=== PATIENT | male | born 1950 | race American Indian/Alaskan Native ===

== ENCOUNTER 2019-05-03 01:48 | Inpatient (IN) | payer MEDICARE, OTHER ==
--- NOTE | 2019-05-03 02:30 | Emergency Department Report ---
ED Neuro Deficit HPI - General Chief Complaint: Neuro Symptoms/Deficit Stated Complaint: NUMBNESS ON LEFT SIDE Time Seen by Provider: 05/03/19 02:03 Source: patient Mode of arrival: Ambulatory Limitations: No Limitations - History of Present Illness Initial Comments: [facility] TeleNeurology Consult Services Impression: Stroke Not a tpa candidate due to: Pt on Xarelto Symptoms not consistent with LVO therefore no DEEPA Comments: Last Known Well: 18:30 [employer] contacted: 2:04 [facility] at bedside: 2:11 NIHSS assessment time: 2:14 Recommendations: Admit for stroke workup. ASA/Statin if no contraindications. IV Fluids Inpatient neurology consultation Inpatient stroke evaluation as per Neurology/ Internal Medicine Discussed with ED MD Please call with questions --------- CC: left sided weakness. History of Present Illness: Patient is a 68 YO M with h/o DM and afib on Xarelto presented with left sided weakness. He went to bed at 18:30 and got up dragging his left leg. He denies any speech or language deficits but seems to have a left facial droop. Diagnostic: CT Head: No acute Intracranial findings. Exam: NIH Stroke Scale/Score (NIHSS) RESULT SUMMARY: 3 points NIH Stroke Scale INPUTS: 1A: Level of consciousness > 0 = Alert; keenly responsive 1B: Ask month and age > 0 = Both questions right 1C: 'Blink eyes' & 'squeeze hands' > 0 = Performs both tasks 2: Horizontal extraocular movements > 0 = Normal 3: Visual chang > 0 = No visual loss 4: Facial palsy > 2 = Partial paralysis (lower face) 5A: Left arm motor drift > 0 = No drift for 10 seconds 5B: Right arm motor drift > 0 = No drift for 10 seconds 6A: Left leg motor drift > 1 = Drift, but doesn't hit bed 6B: Right leg motor drift > 0 = No drift for 5 seconds 7: Limb Ataxia > 0 = No ataxia 8: Sensation > 0 = Normal; no sensory loss 9: Language/aphasia > 0 = Normal; no aphasia 10: Dysarthria > 0 = Normal 11: Extinction/inattention > 0 = No abnormality Medical Decision Making: - Extensive number of diagnosis or management options are considered above. - Extensive amount of complex data reviewed. - High risk of complication and/or morbidity or mortality are associated with differential diagnostic considerations above. - There may be Uncertain outcome and increased probability of prolonged functional impairment or high probability of severe prolonged functional impairment associated with some of these differential diagnosis. Medical Data Reviewed: 1.Data reviewed include clinical labs, radiology, Medical Tests; 2.Tests results discussed w/performing or interpreting physician; 3.Obtaining/reviewing old medical records; 4.Obtaining case history from another source; 5.Independent review of image, tracing or specimen. Patient was informed the neurology consult would happen via telehealth consult by way of interactive audio and video telecommunications and consented to receiving care in this manner. - Related Data Home Medications: Previous Rx's Medication Instructions Recorded Last Taken Type HYDROcodone/APAP 5-325 [[place] 1 each PO Q6HR PRN #20 tablet 10/25/13 Unknown Rx 5/325 mg] Diclofenac [Danny Rodriguez] 75 mg PO Q12H #30 tablet 10/08/15 Unknown Rx oxyCODONE /ACETAMINOPHEN [Percocet 1 tab PO Q6HR PRN #25 tablet 10/08/15 Unknown Rx 5/325] predniSONE [Deltasone] 20 mg PO BID #10 tab 10/08/15 Unknown Rx Allergies/Adverse Reactions: Allergies Allergy/AdvReac Type Severity Reaction Status Date / Time No Known Allergies Allergy Unverified 10/25/13 17:12 ED Review of Systems ROS: Stated complaint: NUMBNESS ON LEFT SIDE Other details as noted in HPI ED Past Medical Hx - Past Medical History Previous Medical History?: Yes Hx Diabetes: Yes Hx Kidney Stones: Yes - Surgical History Past Surgical History?: Yes Additional Surgical History: kidney stone surgery - Social History Smoking Status: Never Smoker Substance Use Type: Alcohol - Medications Home Medications: Home Medications Medication Instructions Recorded Confirmed Last Taken Type HYDROcodone/APAP 5-325 [[place] 1 each PO Q6HR PRN #20 tablet 10/25/13 Unknown Rx 5/325 mg] Diclofenac Dr Shanice Rodriguez] 75 mg PO Q12H #30 tablet 10/08/15 Unknown Rx oxyCODONE /ACETAMINOPHEN [Percocet 1 tab PO Q6HR PRN #25 tablet 10/08/15 Unknown Rx 5/325] predniSONE [Deltasone] 20 mg PO BID #10 tab 10/08/15 Unknown Rx ED Neuro Physical Exam - General Limitations: No Limitations Suspected Stroke: Yes - NIHSS Assessment Interval: Baseline 1a. Level of Consciousness: alert/keenly responsive 1b. LOC Questions: answers both correctly 1c. LOC Commands: performs tasks correctly 2. Best Gaze: partial gaze palsy 3. Visual: no visual loss 4. Facial Palsy: unilateral complete paralysis 5b. Motor Arm Right: no drift 5a. Motor Arm Left: no drift 6a. Motor Leg Left: drift 6b. Motor Leg Right: no drift 7. Limb Ataxia: absent 8. Sensory: normal 9. Best Language: no aphasia 10. Dysarthria: normal 11. Extinction/Inattention: no abnormality Total Score: 5 Stroke Severity: Moderate Stroke ED Course Vital Signs 05/03/19 01:50 Temperature 98.2 F Pulse Rate 74 Respiratory 18 Rate Blood Pressure 160/80 O2 Sat by Pulse 98 Oximetry - Lab Data Lab Results 05/03/19 Range/Units 02:04 POC Glucose 144 H (70-105) Critical care attestation.: If time is entered above; I have spent that time in minutes in the direct care of this critically ill patient, excluding procedure time. ED Disposition Clinical Impression: Stroke Disposition: [id number] OP ADMIT IP TO THIS HOSP Is pt being admited?: Yes Condition: Stable
[2019-05-03 02:39] LABS: Basophils % (Auto) 0.6 % (0.0-1.8); Eosinophils # (Auto) 0.1 K/mm3 (0.0-0.4); Eosinophils % (Auto) 2.2 % (0.0-4.3); Hematocrit 42.2 % (35.5-45.6); Hemoglobin 14.1 gm/dl (11.8-15.2); Lymphocytes # (Auto) 1.8 K/mm3 (1.2-5.4); Lymphocytes % (Auto) 31.7 % (13.4-35.0); Mean Corpuscular HGB Conc 33 % (32-34); Mean Corpuscular Volume 84 fl (84-94); Monocytes # (Auto) 0.5 K/mm3 (0.0-0.8); Monocytes % (Auto) 8.9 % (0.0-7.3); Platelet Count 135 K/mm3 (140-440); Red Cell Distribution Width 13.9 % (13.2-15.2)
--- NOTE | 2019-05-03 02:43 | Emergency Department Report ---
HPI - General Chief Complaint: Neuro Symptoms/Deficit Time Seen by Provider: 05/03/19 02:03 - HPI HPI: 68-year-old -[place] male presents to the emergency department as a code stroke secondary to some left-sided weakness. The patient took a nap around 6 PM this evening and woke up around 7:00, sat on the side of the bed, and felt like his left side was "weird." He tried to get up and walk around but felt like his left leg was dragging. He also feels like his left arm is weak. He denies any headache, vision change, slurred speech. He waited for a while to tell his family about his symptoms and that he was brought in for further evaluation. He has a past medical history of diabetes and what appears to be paroxysmal atrial fibrillation on Xarelto. He did not take anything for his symptoms prior to presentation today. ED Past Medical Hx - Past Medical History Previous Medical History?: Yes Hx Diabetes: Yes Hx Kidney Stones: Yes - Surgical History Past Surgical History?: Yes Additional Surgical History: kidney stone surgery - Social History Smoking Status: Never Smoker Substance Use Type: Alcohol - Medications Home Medications: Home Medications Medication Instructions Recorded Confirmed Last Taken Type HYDROcodone/APAP 5-325 [[place] 1 each PO Q6HR PRN #20 tablet 10/25/13 Unknown Rx 5/325 mg] Diclofenac Dr [Danny Rodriguez] 75 mg PO Q12H #30 tablet 10/08/15 Unknown Rx oxyCODONE /ACETAMINOPHEN [Percocet 1 tab PO Q6HR PRN #25 tablet 10/08/15 Unknown Rx 5/325] predniSONE [Deltasone] 20 mg PO BID #10 tab 10/08/15 Unknown Rx ED Review of Systems ROS: Stated complaint: NUMBNESS ON LEFT SIDE Other details as noted in HPI Comment: All other systems reviewed and negative Constitutional: weakness. denies: chills, fever Eyes: denies: eye pain, vision change ENT: denies: ear pain, throat pain Respiratory: denies: cough, shortness of breath Cardiovascular: denies: chest pain, palpitations Gastrointestinal: denies: abdominal pain, vomiting Genitourinary: denies: dysuria, discharge Musculoskeletal: denies: back pain, arthralgia Skin: denies: rash, lesions Neurological: weakness. denies: headache Physical Exam - Physical Exam Vital Signs: Vital Signs 05/03/19 01:50 Temperature 98.2 F Pulse Rate 74 Respiratory 18 Rate Blood Pressure 160/80 O2 Sat by Pulse 98 Oximetry Physical Exam: GENERAL: The patient is well-developed well-nourished. HENT: Normocephalic. Atraumatic. Patient has moist mucous membranes. EYES: Extraocular motions are intact. Pupils equal reactive to light bilaterally. No nystagmus. NECK: Supple. Trachea is midline. CHEST/LUNGS: Clear to auscultation. There is no respiratory distress noted. HEART/CARDIOVASCULAR: Regular. There is no tachycardia. There is no murmur. ABDOMEN: Abdomen is soft, nontender. Patient has normal bowel sounds. There is no abdominal distention. SKIN: Skin is warm and dry. NEURO: The patient is awake, alert, and oriented. The patient is cooperative. There is mild left-sided nasolabial fold paresis. There is a mild left lower extremity drift but it does not hit the gurney. The patient has normal speech. MUSCULOSKELETAL: There is no tenderness or deformity. There is no evidence of acute injury. ED Course Vital Signs 05/03/19 01:50 Temperature 98.2 F Pulse Rate 74 Respiratory 18 Rate Blood Pressure 160/80 O2 Sat by Pulse 98 Oximetry - Consultations Consultation #1: 05/03/19 02:41 The patient was seen by the telemedicine neurologist, Dr. Lu, who evaluated the patient and does not feel that he is a TPA candidate secondary to the fact that he is outside of the TPA window, it does not appear to be a large vessel occlusion, and the patient is currently on anticoagulation. However he feels that the patient should be admitted to the hospital for further evaluation and stroke workup. He does not feel that the patient needs CT angiography studies of the head and/or neck. ED Medical Decision Making - Lab Data Result diagrams: 05/03/19 02:24 05/03/19 02:24 - EKG Data -: EKG Interpreted by Me EKG shows normal: sinus rhythm, axis, intervals, QRS complexes, ST-T waves (flattening of T waves) Rate: normal - EKG Data When compared to previous EKG there are: previous EKG unavailable Interpretation: other (sinus rhythm, normal axis, normal rate, flattening of T waves) - Radiology Data Radiology results: report reviewed CT head/brain wo con INDICATION / CLINICAL INFORMATION: neuro deficits <6hrs or sx present upon awakening. Code stroke TECHNIQUE: Axial CT imaging of abdomen and pelvis was performed without IV contrast. Coronal and sagittal reformatted imaging obtained. All CT scans at this location are performed using CT dose reduction for ALARA by means of automated exposure control. COMPARISON: None available. FINDINGS: No acute intracranial hemorrhage, mass, or midline shift noted. There are a few small old lacunar infarctions throughout both basal ganglia, but no evidence for acute infarction or focal edema. No extra-axial fluid collection. Mild parenchymal volume loss due to atrophy, appropriate for the patient's age. Visualized paranasal sinuses and mastoid air cells are well aerated and clear. No calvarial abnormality. IMPRESSION: 1. No acute intracranial abnormality. A negative CT report does not exclude the possibility of acute stroke. Please correlate clinically. 2. Small bilateral lacunar infarctions. - Medical Decision Making This patient presents as a code stroke. Stat CT scan of the head without contr ast did not show any acute bleed, shift, mass, ischemia, or any other acute process. The patient was seen by the telemedicine neurologist who agrees that the patient is not a TPA candidate for multiple reasons but the patient is also a alliance party on anticoagulation. The patient has a mild left-sided facial droop and some left leg weakness with a drift but does not hit the gurney. Patient's labs have been unremarkable. EKG did not show any signs of ST elevation [place]. Vital signs were stable throughout his ED course. However given the NIH stroke scale of about 3, and the patient's history and presentation, it does appear that the patient may have had a CVA. The neurologist did not recommend CT angiography studies of the head or neck, but does recommend admission to the hospital for further workup including MRI. The patient was accepted for admission by the hospitalist, Dr. Shipman. - Differential Diagnosis CVA, TIA, Hypoglycemia, Dysrythmia Critical Care Time: Yes Critical care time in (mins) excluding proc time.: 35 Critical care attestation.: If time is entered above; I have spent that time in minutes in the direct care of this critically ill patient, excluding procedure time. Critical care time was spent on this patient and during his initial evaluation, multiple re-evaluat ions, ordering an interpretation of labs and imaging, discussion with the patient and his family, discussion with the telemedicine neurologist and hospitalist service. Critical Care Time: 35 minutes ED Disposition Clinical Impression: Left-sided weakness Stroke Qualifiers: CVA mechanism: unspecified Qualified Code(s): I63.9 - Cerebral infarction, unsp ecified Hypertension Qualifiers: Hypertension type: essential hypertension Qualified Code(s): I10 - Essential (primary) hypertension Disposition: OP ADMIT IP TO THIS HOSP Is pt being admited?: Yes Condition: Serious Referrals: FRANKLIN MCMANUS MD [Primary Care Provider] - 3-5 Days Time of Disposition: 03:28
--- NOTE | 2019-05-03 02:44 | Cat Scan Report ---
CT head/brain wo con INDICATION / CLINICAL INFORMATION: neuro deficits <6hrs or sx present upon awakening. Code stroke TECHNIQUE: Axial CT imaging of abdomen and pelvis was performed without IV contrast. Coronal and sagittal reform atted imaging obtained. All CT scans at this location are performed using CT dose reduction for ALARA by means of automated exposure control. COMPARISON: None available. FINDINGS: No acute intracranial hemorrhage, mass, or midline shift noted. There are a few small old lacunar inf arctions throughout both basal ganglia, but no evidence for acute infarction or focal edema. No extra-axial fluid collection. Mild parenchymal volume loss due to atrophy, appropriate for the pat ient's age. Visualized paranasal sinuses and mastoid air cells are well aerated and clear. No calvarial abnormali ty. CRITICAL RESULT: Time of Discovery: Negative report for code stroke Time of Communication: [id number] Licensed Practitioner Receiving Report: Dr. Kevin Pena Read Back Performed: Yes. IMPRESSION: 1. No acute intracranial abnormality. A negative CT report does not exclude the possibility of acute stroke. Please correlate clinically. 2. Small bilateral lacunar infarctions. Signer Name: Kandice Patel MD Signed: 05/03/2019 1:40 AM Workstation Name: [id number]
[2019-05-03 02:49] LABS: INR 1.98 (0.87-1.13)
[2019-05-03 02:50] LABS: Partial Thromboplastin Time 32.1 Sec. (24.2-36.6); Thrombin Time 16.2 Sec. (15.1-19.6)
[2019-05-03 03:00] LABS: BUN/Creatinine Ratio 8; Blood Urea Nitrogen 8 mg/dL (9-20); Calcium 9.8 mg/dL (8.4-10.2); Hemolysis Index 74
[2019-05-03] MEDS ORDERED: BABY ASPIRIN PO ONE (03:04)
[2019-05-03] MEDS ORDERED: NORCO 5/325 PO PRN (03:51)
--- NOTE | 2019-05-03 04:03 | History and Physical Report ---
History of Present Illness Chief complaint: left sided weakness History of present illness: 68-year-old -[place]inese male presents with left sided weakness -last known well was 6pm, he took a nap, woke up an hour later feeling weird, he had trouble walking because his left leg dragging -he is also c/o LUE weakness, -denies GOEL, vision change, slurred speech or facial droop, but states that the left side of his face feels funny - he denies CP or palpitations ED Past Medical Hx - Past Medical History; dm on insulin, nephrolithiasis, PAF on xarelto - Surgical History; lithotripsy - Social History Smoking Status: Never Smoker Substance Use Type: Alcohol on occasion, denies heavy drinking, denies illicit or rx drug abuse Medications and Allergies Allergies Allergy/AdvReac Type Severity Reaction Status Date / Time No Known Allergies Allergy Unverified 10/25/13 17:12 Home Medications Medication Instructions Recorded Confirmed Last Taken Type AtorvaSTATin [Lipitor] 20 mg PO DAILY 05/03/19 05/03/19 Unknown History Ergocalciferol (Vitamin D2) 50,000 units PO QWEEK 05/03/19 05/03/19 Unknown His tory Glimepiride [Amaryl] 2 mg PO QAM 05/03/19 05/03/19 Unknown History Insulin Aspart 20 units SQ ACHS 05/03/19 05/03/19 Unknown History Insulin Glargine 55 units SQ QHS 05/03/19 05/03/19 Unknown History Lisinopril 5 mg PO DAILY 05/03/19 05/03/19 Unknown History Rivaroxaban 20 mg PO DAILY 05/03/19 05/03/19 1 Day Ago History ~05/02/19 Sildenafil 100 mg PO QWEEK PRN 05/03/19 05/03/19 Unknown History Active Meds: Active Medications Acetaminophen/Hydrocodone Bitart ([place] 5/325) 1 each PO Q6HR PRN PRN Reason: Pain Review of Systems All systems: negative Constitutional: no weight loss, no fatigue Ears, nose, mouth and throat: no ear pain Cardiovascular: no chest pain Respiratory: no cough Gastrointestinal: no abdominal pain Genitourinary Male: no dysuria Rectal: no pain Musculoskeletal: no neck stiffness Integumentary: no rash Neurological: other (left sided weakness), no head injury Psychiatric: no anxiety Endocrine: no cold intolerance Hematologic/Lymphatic: no easy bruising Allergic/Immunologic: no urticaria Exam - Constitutional Vitals: Temp Pulse Resp BP Pulse Ox 98.2 F 65 20 167/73 96 05/03/19 01:50 05/03/19 03:00 05/03/19 03:00 05/03/19 03:00 05/03/19 03:00 General appearance: Present: no acute distress, well-nourished - EENT Eyes: Present: PERRL ENT: hearing intact, clear oral mucosa - Neck Neck: Present: supple, normal ROM - Respiratory Respiratory effort: normal Respiratory: bilateral: CTA - Cardiovascular Heart Sounds: Present: S1 & S2. Absent: rub, click - Extremities Extremities: pulses symmetrical, No edema Peripheral Pulses: within normal limits - Abdominal General gastrointestinal: Present: soft, non-tender, non-distended, normal bowel sounds Male genitourinary: Present: normal - Integumentary Integumentary: Present: clear, warm, dry - Musculoskeletal Musculoskeletal: gait normal, strength equal bilaterally - Psychiatric Psychiatric: appropriate mood/affect, intact judgment & insight - Neurologic Neurologic: CNII-XII intact, focal deficits (Left facial flattening, left mini lab operator strenght reduced, LLE mild decrease in strength), moves all extremities Results - Labs CBC & Chem 7: 05/03/19 02:24 05/03/19 02:24 Labs: Laboratory Last Values WBC 5.6 K/mm3 (4.5-11.0) 05/03/19 02:24 RBC 5.00 M/mm3 (3.65-5.03) 05/03/19 02:24 Hgb 14.1 gm/dl (11.8-15.2) 05/03/19 02:24 Hct 42.2 % (35.5-45.6) 05/03/19 02:24 MCV 84 fl (84-94) 05/03/19 02:24 MCH 28 pg (28-32) 05/03/19 02:24 MCHC 33 % (32-34) 05/03/19 02:24 RDW 13.9 % (13.2-15.2) 05/03/19 02:24 Plt Count 135 K/mm3 (140-440) L 05/03/19 02:24 Lymph % (Auto) 31.7 % (13.4-35.0) 05/03/19 02:24 [place] % (Auto) 8.9 % (0.0-7.3) H 05/03/19 02:24 Eos % (Auto) 2.2 % (0.0-4.3) 05/03/19 02:24 Baso % (Auto) 0.6 % (0.0-1.8) 05/03/19 02:24 Lymph # 1.8 K/mm3 (1.2-5.4) 05/03/19 02:24 [place] # 0.5 K/mm3 (0.0-0.8) 05/03/19 02:24 Eos # 0.1 K/mm3 (0.0-0.4) 05/03/19 02:24 Baso # 0.0 K/mm3 (0.0-0.1) 05/03/19 02:24 Seg Neutrophils % 56.6 % (40.0-70.0) 05/03/19 02:24 Seg Neutrophils # 3.2 K/mm3 (1.8-7.7) 05/03/19 02:24 PT 22.1 Sec. (12.2-14.9) H 05/03/19 02:24 INR 1.98 (0.87-1.13) H 05/03/19 02:24 APTT 32.1 Sec. (24.2-36.6) 05/03/19 02:24 16.2 Sec. (15.1-19.6) 05/03/19 02:24 Sodium 144 mmol/L (137-145) 05/03/19 02:24 Potassium 4.1 mmol/L (3.6-5.0) 05/03/19 02:24 Chloride 110.8 mmol/L (98-107) H 05/03/19 02:24 Carbon Dioxide 23 mmol/L (22-30) 05/03/19 02:24 14 mmol/L 05/03/19 02:24 BUN 8 mg/dL (9-20) L 05/03/19 02:24 1.0 mg/dL (0.8-1.5) 05/03/19 02:24 Estimated GFR > 60 ml/min 05/03/19 02:24 8 % 05/03/19 02:24 Glucose 138 mg/dL (75-100) H 05/03/19 02:24 POC Glucose 144 (70-105) H 05/03/19 02:04 Calcium 9.8 mg/dL (8.4-10.2) 05/03/19 02:24 < 0.010 ng/mL (0.00-0.029) 05/03/19 02:24 - Imaging and Cardiology CT Scan - head: image reviewed (no acute findings) Assessment and Plan Assessment and plan: 68m who pw with acute onset of L side weakness Acute cva -dw teleneurologist who recommended routine stroke workup -obtain MR brain, MRA brain, carotid dopplers, echo -allow permissive htn -aspirin and high dose statin, check Lipid panel -neurology consult PAF -echo, likely need CATIE afterwards -cardiology consult DM check a1c, SSI dvt ppx -full anticoagulated
[2019-05-03] MEDS ORDERED: ZOFRAN IV PRN (04:08)
[2019-05-03] MEDS ORDERED: MILK OF MAGNESIA PO PRN (04:08)
[2019-05-03] MEDS ORDERED: D50W (25GM) Syringe IV PRN (04:08)
[2019-05-03] MEDS ORDERED: TYLENOL PO PRN (04:08)
[2019-05-03] MEDS ORDERED: PHENERGAN PR PRN (04:08)
[2019-05-03] MEDS ORDERED: REGLAN PO PRN (04:08)
[2019-05-03] MEDS ORDERED: NORMODYNE IV PRN (04:08)
[2019-05-03] MEDS ORDERED: DULCOLAX PR PRN (04:08)
[2019-05-03] MEDS ORDERED: NON-FORMULARY (Insulin Aspart 20 UNITS) SQ SCH (07:30)
[2019-05-03] MEDS: HumaLOG SUB-Q SCH ×7 (07:30→21:13)
[2019-05-03] MEDS ORDERED: ASPIRIN PO SCH (10:00)
[2019-05-03] MEDS ORDERED: VITAMIN D2 PO SCH (10:00)
[2019-05-03 10:05] LABS: Chol/HDL Ratio 3.81 %
--- NOTE | 2019-05-03 11:10 | Consultation ---
<KAMRON ROJAS - Last Filed: 05/03/19 12:31> History of Present Illness Consult date: 05/03/19 Consult reason: atrial fibrillation History of present illness: This is a 68-year old man who presented with code stroke. Patient reports he developed sudden weakness of left upper and lower extremity on waking up from a nap. Patient has a history of hypertension, diabetes and takes Xarelto for paroxysmal atrial fibrillation [facility] Patient was consi dered not a candidate for TPA. CT scan of the brain reports old bilateral basal ganglia infarcts. No acute intracranial abnormalities. Neurology evaluation is pending. A cardiac consultation has been requested for history of paroxysmal afib. Patient denies chest pain, denies unusual shortness of breath and denies palpitations. His presenting ECG is sinus rhythm, non-specific [place] abnormalities. Medications and Allergies Allergies Allergy/AdvReac Type Severity Reaction Status Date / Time No Known Allergies Allergy Unverified 10/25/13 17:12 Home Medications Medication Instructions Recorded Confirmed Last Taken Type AtorvaSTATin [Lipitor] 20 mg PO DAILY 05/03/19 05/03/19 Unknown History Ergocalciferol (Vitamin D2) 50,000 units PO QWEEK 05/03/19 05/03/19 Unknown History Glimepiride [Amaryl] 2 mg PO QAM 05/03/19 05/03/19 Unknown History Insulin Aspart 20 units SQ ACHS 05/03/19 05/03/19 Unknown History Insulin Glargine 55 units SQ QHS 05/03/19 05/03/19 Unknown History Lisinopril 5 mg PO DAILY 05/03/19 05/03/19 Unknown History Rivaroxaban 20 mg PO DAILY 05/03/19 05/03/19 1 Day Ago History ~05/02/19 Sildenafil 100 mg PO QWEEK PRN 05/03/19 05/03/19 Unknown History Active Meds: Active Medications Acetaminophen (Tylenol) 650 mg PO Q4H PRN PRN Reason: Pain, Mild (1-3) Acetaminophen/Hydrocodone Bitart ([place] 5/325) 1 each PO Q6H PRN PRN Reason: Pain (4-6) Aspirin (Halfprin Ec) 81 mg PO QDAY [facility] Atorvastatin Calcium (Lipitor) 40 mg PO QHS [facility] Bisacodyl (Dulcolax) 10 mg IN QDAY PRN PRN Reason: Constipation Dextrose (D50w (25gm) Syringe) 50 ml IV PRN PRN PRN Reason: Hypoglycemia Ergocalciferol (Vitamin D2) 50,000 unit PO We LISANDRA Insulin Glargine (Lantus) 55 units SUB-Q QHS [facility] Insulin Human Lispro (Humalog) 0 unit SUB-Q ACHS [facility]; Protocol Insulin Human Lispro (Humalog) 20 unit SUB-Q AC LISANDR[facility] Labetalol HCl (Normodyne) 10 mg IV Q4H PRN PRN Reason: BP >170/105; hold for HR <60 Magnesium Hydroxide (Milk Of Magnesia) 30 ml PO Q4H PRN PRN Reason: Constipation Metoclopramide HCl (Reglan) 10 mg PO Q6H PRN PRN Reason: Nausea And Vomiting Ondansetron HCl (Zofran) 4 mg IV Q8H PRN PRN Reason: Nausea And Vomiting Promethazine HCl (Phenergan) 25 mg IN Q6H PRN PRN Reason: Nausea And Vomiting Rivaroxaban (Xarelto) 20 mg PO QDDIAB [facility] Sodium Chloride (Sodium Chloride Flush Syringe 10 Ml) 10 ml IV PRN PRN PRN Reason: LINE FLUSH Physical Examination Vital Signs Temp Pulse Resp BP Pulse Ox 98.2 F 74 18 160/80 98 05/03/19 01:50 05/03/19 01:50 05/03/19 01:50 05/03/19 01:50 05/03/19 01:50 General appearance: no acute distress HEENT: Positive: PERRL Neck: Positive: trachea midline Cardiac: Positive: Reg Rate and Rhythm Lungs: Positive: Decreased Breath Sounds Neuro: Positive: Weakness (left sided) Results 05/03/19 02:24 05/03/19 02:24 Coagulation 05/03/19 Range/Units 02:24 PT 22.1 H (12.2-14.9) Sec. INR 1.98 H (0.87-1.13) APTT 32.1 (24.2-36.6) Sec. Lipids 05/03/19 Range/Units 02:24 Triglycerides 237 H (2-149) mg/dL Cholesterol 122 (50-199) mg/dL HDL Cholesterol 32 L (40-59) mg/dL Cholesterol/HDL Ratio 3.81 % CBC 05/03/19 Range/Units 02:24 WBC 5.6 (4.5-11.0) K/mm3 RBC 5.00 (3.65-5.03) M/mm3 Hgb 14.1 (11.8-15.2) gm/dl Hct 42.2 (35.5-45.6) % Plt Count 135 L (140-440) K/mm3 Lymph # 1.8 (1.2-5.4) K/mm3 [place] # 0.5 (0.0-0.8) K/mm3 Eos # 0.1 (0.0-0.4) K/mm3 Baso # 0.0 (0.0-0.1) K/mm3 Comprehensive Metabolic Panel 05/03/19 Range/Units 02:24 Sodium 144 (137-145) mmol/L Potassium 4.1 (3.6-5.0) mmol/L Chloride 110.8 H (98-107) mmol/L Carbon Dioxide 23 (22-30) mmol/L BUN 8 L (9-20) mg/dL Creatinine 1.0 (0.8-1.5) mg/dL Glucose 138 H (75-100) mg/dL Calcium 9.8 (8.4-10.2) mg/dL Assessment and Plan Left sided weakness Hx of paroxysmal Afib on Xarelto as an outpatient Hypertension Diabetes We will obtain an echocardiogram for LVEF assessment. Medical management for paroxysmal Afib with beta blockers for suppression. Neurology evaluation and workup is pending. <BATSHEVA BARRAGAN - Last Filed: 05/03/19 23:49> Medications and Allergies Active Meds: Active Medications Acetaminophen (Tylenol) 650 mg PO Q4H PRN PRN Reason: Pain, Mild (1-3) Acetaminophen/Hydrocodone Bitart ([place] 5/325) 1 each PO Q6H PRN PRN Reason: Pain (4-6) Aspirin (Halfprin Ec) 81 mg PO QDAY [facility] Last Admin: 05/03/19 11:57 Dose: 81 mg Documented by: Atorvastatin Calcium (Lipitor) 40 mg PO QHS [facility] Last Admin: 05/03/19 21:12 Dose: 40 mg Documented by: Bisacodyl (Dulcolax) 10 mg IN QDAY PRN PRN Reason: Constipation Dextrose (D50w (25gm) Syringe) 50 ml IV PRN PRN PRN Reason: Hypoglycemia Ergocalciferol (Vitamin D2) 50,000 unit PO We [facility] Last Admin: 05/03/19 11:57 Dose: 50,000 unit Documented by: Insulin Glargine (Lantus) 55 units SUB-Q QHS [facility] Last Admin: 05/03/19 21:13 Dose: 55 units Documented by: Insulin Human Lispro (Humalog) 0 unit SUB-Q ACHS [facility]; Protocol Last Admin: 05/03/19 21:13 Dose: 2 unit Documented by: Insulin Human Lispro (Humalog) 20 unit SUB-Q AC [facility] Last Admin: 05/03/19 18:08 Dose: 20 unit Documented by: Labetalol HCl (Normodyne) 10 mg IV Q4H PRN PRN Reason: BP >170/105; hold for HR <60 Magnesium Hydroxide (Milk Of Magnesia) 30 ml PO Q4H PRN PRN Reason: Constipation Metoclopramide HCl (Reglan) 10 mg PO Q6H PRN PRN Reason: Nausea And Vomiting Metoprolol Tartrate (Lopressor) 25 mg PO BID [facility] Last Admin: 05/03/19 21:12 Dose: 25 mg Documented by: Ondansetron HCl (Zofran) 4 mg IV Q8H PRN PRN Reason: Nausea And Vomiting Promethazine HCl (Phenergan) 25 mg IN Q6H PRN PRN Reason: Nausea And Vomiting Rivaroxaban (Xarelto) 20 mg PO QDDIAB [facility] Last Admin: 05/03/19 11:57 Dose: 20 mg Documented by: Sodium Chloride (Sodium Chloride Flush Syringe 10 Ml) 10 ml IV PRN PRN PRN Reason: LINE FLUSH Last Admin: 05/03/19 21:14 Dose: 10 ml Documented by: Physical Examination Vital Signs Temp Pulse Resp BP Pulse Ox 98.2 F 74 18 160/80 98 05/03/19 01:50 05/03/19 01:50 05/03/19 01:50 05/03/19 01:50 05/03/19 01:50 Results 05/03/19 02:24 05/03/19 02:24 Coagulation 05/03/19 Range/Units 02:24 PT 22.1 H (12.2-14.9) Sec. INR 1.98 H (0.87-1.13) APTT 32.1 (24.2-36.6) Sec. Lipids 05/03/19 Range/Units 02:24 Triglycerides 237 H (2-149) mg/dL Cholesterol 122 (50-199) mg/dL HDL Cholesterol 32 L (40-59) mg/dL Cholesterol/HDL Ratio 3.81 % CBC 05/03/19 Range/Units 02:24 WBC 5.6 (4.5-11.0) K/mm3 RBC 5.00 (3.65-5.03) M/mm3 Hgb 14.1 (11.8-15.2) gm/dl Hct 42.2 (35.5-45.6) % Plt Count 135 L (140-440) K/mm3 Lymph # 1.8 (1.2-5.4) K/mm3 [place] # 0.5 (0.0-0.8) K/mm3 Eos # 0.1 (0.0-0.4) K/mm3 Baso # 0.0 (0.0-0.1) K/mm3 Comprehensive Metabolic Panel 05/03/19 Range/Units 02:24 Sodium 144 (137-145) mmol/L Potassium 4.1 (3.6-5.0) mmol/L Chloride 110.8 H (98-107) mmol/L Carbon Dioxide 23 (22-30) mmol/L BUN 8 L (9-20) mg/dL Creatinine 1.0 (0.8-1.5) mg/dL Glucose 138 H (75-100) mg/dL Calcium 9.8 (8.4-10.2) mg/dL Assessment and Plan Left sided weakness - Neurology evaluation and workup is pending. Hx of paroxysmal Afib - on Xarelto as an outpatient. Plan for echo. Rate control strategy with AV moreno blockers. Reconsider anticoagulation dependent on neurologic evaluation Hypertension - maximize as needed Diabetes - management per primary
--- NOTE | 2019-05-03 11:42 | Magnetic Resonance Report ---
MRA HEAD WITHOUT CONTRAST HISTORY: Cerebrovascular accident. COMPARISON: none TECHNIQUE: Routine MRA of the head performed. 3-D/MIP reformats postprocessed. CONTRAST: none FINDINGS: MRA HEAD: OVERVIEW: origin of both posterior cerebral arteries is observed. 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 On 3-D reconstitution these vessels are difficult to visualize. This is an artifact of the reconstructed images. The P1 segments contain flow related sig nal intensity on source images. Intracranial vertebral arteries: Left vertebral artery is dominant. Both vertebral arteries contribut e to the basilar artery origin.. Basilar artery: No abnormality. Posterior cerebral arteries: origin of both posterior cerebral arteries is observed. 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 On 3-D reconstitution these vesse ls are difficult to visualize. This is an artifact of the reconstructed images. The P1 segments conta in flow related signal intensity on source images. Internal carotid arteries: Irregularity of contour is seen in a bilaterally symmetrical of pattern at the distal cervical segments of both internal carotid arteries just proximal to the skull base. This likely represents a scan artifact. Correlation with MRA neck with intravenous contrast or CTA head a nd neck would be useful for further evaluation if clinically warranted.. Intracranial internal carotid arteries: No significant abnormality. Anterior cerebral arteries: No significant abnormality. Middle cerebral arteries: No significant abnormality. There is no indication of aneurysm or other vascular malformation. IMPRESSION: 1. 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 2. Irregularity of contour of the distal cervical segments of the internal carotid arteries is likely a scan artifact. Please refer to the above discussion. Signer Name: Dannie Jorgensen MD Signed: 05/03/2019 11:32 AM Workstation Name: [email or web address]
--- NOTE | 2019-05-03 11:52 | Consultation ---
Medications and Allergies Allergies Allergy/AdvReac Type Severity Reaction Status Date / Time No Known Allergies Allergy Unverified 10/25/13 17:12 Home Medications Medication Instructions Recorded Confirmed Last Taken Type AtorvaSTATin [Lipitor] 20 mg PO DAILY 05/03/19 05/03/19 Unknown History Ergocalciferol (Vitamin D2) 50,000 units PO QWEEK 05/03/19 05/03/19 Unknown History Glimepiride [Amaryl] 2 mg PO QAM 05/03/19 05/03/19 Unknown History Insulin Aspart 20 units SQ ACHS 05/03/19 05/03/19 Unknown History Insulin Glargine 55 units SQ QHS 05/03/19 05/03/19 Unknown History Lisinopril 5 mg PO DAILY 05/03/19 05/03/19 Unknown History Rivaroxaban 20 mg PO DAILY 05/03/19 05/03/19 1 Day Ago History ~05/02/19 Sildenafil 100 mg PO QWEEK PRN 05/03/19 05/03/19 Unknown History Active Meds: Active Medications Acetaminophen (Tylenol) 650 mg PO Q4H PRN PRN Reason: Pain, Mild (1-3) Acetaminophen/Hydrocodone Bitart ([place] 5/325) 1 each PO Q6H PRN PRN Reason: Pain (4-6) Aspirin (Halfprin Ec) 81 mg PO QDAY [facility] Atorvastatin Calcium (Lipitor) 40 mg PO QHS [facility] Bisacodyl (Dulcolax) 10 mg [place] QDAY PRN PRN Reason: Constipation Dextrose (D50w (25gm) Syringe) 50 ml IV PRN PRN PRN Reason: Hypoglycemia Ergocalciferol (Vitamin D2) 50,000 unit PO We LISANDRA Insulin Glargine (Lantus) 55 units SUB-Q QHS [facility] Insulin Human Lispro (Humalog) 0 unit SUB-Q [facility]; Protocol Insulin Human Lispro (Humalog) 20 unit SUB-Q [facility] Labetalol HCl (Normodyne) 10 mg IV Q4H PRN PRN Reason: BP >170/105; hold for HR <60 Magnesium Hydroxide (Milk Of Magnesia) 30 ml PO Q4H PRN PRN Reason: Constipation Metoclopramide HCl (Reglan) 10 mg PO Q6H PRN PRN Reason: Nausea And Vomiting Ondansetron HCl (Zofran) 4 mg IV Q8H PRN PRN Reason: Nausea And Vomiting Promethazine HCl (Phenergan) 25 mg [place] Q6H PRN PRN Reason: Nausea And Vomiting Rivaroxaban (Xarelto) 20 mg PO QDDIAB [facility] Sodium Chloride (Sodium Chloride Flush Syringe 10 Ml) 10 ml IV PRN PRN PRN Reason: LINE FLUSH Physical Examination - Vital Signs Vital Signs: Vital Signs Temp Pulse Resp BP Pulse Ox 98.2 F 74 18 160/80 98 05/03/19 01:50 05/03/19 01:50 05/03/19 01:50 05/03/19 01:50 05/03/19 01:50 Results - Laboratory Findings CBC and BMP: 05/03/19 02:24 05/03/19 02:24 Abnormal Lab Findings: Abnormal Labs 05/03/19 05/03/19 05/03/19 02:04 02:24 02:24 Plt Count 135 L [place] % (Auto) 8.9 H PT 22.1 H INR 1.98 H Chloride BUN Glucose POC Glucose 144 H Triglycerides HDL Cholesterol 05/03/19 05/03/19 05/03/19 02:24 02:24 08:20 Plt Count [place] % (Auto) PT INR Chloride 110.8 H BUN 8 L Glucose 138 H POC Glucose 210 H Triglycerides 237 H HDL Cholesterol 32 L Assessment and Plan Mr. Lorenzo is a 68-year-old gentleman with history of hypertension diabetes who developed an episode of sudden weakness of left upper and lower extremity on waking up from a nap at 7 PM on 05/02/2019. Mr. Lorenzo also takes Xarelto and toe 20 mg once a day. Patient states that he has been taking Xarelto regularly however he missed one or two doses or maybe more. Patient also states that he eats a lot of broccoli, spinach and other green vegetables. He takes insulin regularly for his blood sugar control.When he felt weakness on the left side last evening he also felt weakness on the left side of the face and he felt as if his face was twisted to the right. He denies any associated difficulty with speaking. The patient was brought to the emergency on her stroke. Patient was not a candidate for TPA as he was on Xarelto. Workup including CT scan of the brain showed old bilateral basal ganglia infarcts on both sites. CT did not show any hemorrhage or any acute infarct. Patient had MRI done which is being done this morning and the result is pending. Lab work showed that his triglycerides are increased and also is LDL is high and HDL is low Physical examination. Patient is alert and awake, has insight into his problems and answers questions appropriately. Heart. Normal rate and rhythm. Carotids: Both Palpable,no bruit Cranial nerves. Patient has left facial weakness, sparing the left side of forehead. Extraocular movement is intact. Pupils react to light and accommodation. There is no asymmetry to facial sensation. Other cranial nerves are within normal limits. Motor : Weak left upper and lower extremity as compared to the right. Patient has positive pronator drift on the left side. He can raise both upper and lower extremity against gravity. Reflexes. Slightly increased reflexes on the left upper and lower extremity as compared to the right. Equivocal on the left side. Coordination : Coordination is within normal limits. Sensory. Patient denied any sensory loss on the left side of the body including left half of the face. Gait. Patient is capable of ambulating without any assistive device with some difficulty. Impression : Patient seems to have left-sided weakness due to right hemispheric lacunar stroke most likely in the right internal capsule/basal ganglia and/or right hemispheric white matter. Recurrent stroke, while on Xarelto seems most likely from missing doses and also from eating vitamin K containing green leafy vegetables. Recommendation. #1. Patient should be advised to limit eating broccoli,spinach and other green leafy vegetables #2. PT, OT, no need for speech therapy, T4,TSH. #3. Patient will be advised to limit eating fried food and fast food. He should be encouraged to eat more vegetables, beans and fish #.4. Further recommendation to follow after reviewing the results of MRA and echocardiogram if indicated.
--- NOTE | 2019-05-03 11:52 | Magnetic Resonance Report ---
MR brain wo con INDICATION / CLINICAL INFORMATION: stroke. 60-year-old male TECHNIQUE: Multiplanar, multisequence MR images of the brain were obtained. COMPARISON: CT - 05/03/2019 FINDINGS: BRAIN / INTRACRANIAL CONTENTS: Very small corpus striatal infarct seen on the right, extending from t he posterior caudate to the posterior putamen. This finding is acute/subacute in age. [id number] cerebral atrophy. Mild component of hippocampal atrophy suspected. Old, small branch PICA infarcts seen bilaterally - left greater than right. Multiple lacunar infarcts seen in the gang liocapsular regions. There are moderate areas of increased signal intensity on FLAIR imaging in the white matter of the ce rebral hemispheres. These are nonspecific findings and may be related to microangiopathy (hypertensio n, diabetes, atherosclerosis), given the patient's age. Mild pontine disease noted. Otherwise, no acute ischemia, acute hemorrhage, or hydrocephalus. CRANIOCERVICAL JUNCTION: No significant abnormality. VASCULAR FLOW-VOIDS: No significant abnormality. ORBITS: No significant abnormality of visualized orbits. SINUSES / MASTOIDS: Mild to moderate mucosal thickening seen in the ethmoids. ADDITIONAL FINDINGS: None. IMPRESSION: 1. Small focus of acute ischemia in the posterior corpus striatal region on the right. No associated mass effect or signs of hemorrhage. 2. Otherwise, no focal mass, hemorrhage, hydrocephalus, or acute ischemia. Signer Name: Tr Mishra MD, III Signed: 05/03/2019 11:35 AM Workstation Name: [id number]
[2019-05-03] MEDS: XARELTO PO SCH (11:57)
[2019-05-03] MEDS: HALFPRIN EC PO SCH (11:57)
--- NOTE | 2019-05-03 12:01 | Event Note ---
Date: 05/03/19 Patient with left sided weakness. MRI confirms acute stroke. I have seen and examined patient. Continue current management.
[2019-05-03 13:08] LABS: Bilirubin,Urine NEG (Negative); Blood,Urine SM (Negative); Color,Urine Yellow (Yellow); Mucus,Urine 3+ /HPF; Protein,Urine <15 mg/dL mg/dL (Negative); Urobilinogen,Urine < 2.0 mg/dL (<2.0)
--- NOTE | 2019-05-03 16:36 | Vascular Lab Report ---
"DUPLEX DOPPLER ULTRASOUND CAROTID, BILATERAL INDICATION / CLINICAL INFORMATION: Stroke. COMPARISON: None available. FINDINGS: RIGHT CAROTID PLAQUE ESTIMATE: < 50% CCA velocity: 116.5 cm/sec. ICA peak systolic velocity: 99.7 cm/sec. ICA/CCA PSV Ratio: 0.86. Right Vertebral Artery: Antegrade flow. LEFT CAROTID PLAQUE ESTIMATE: < 50% CCA velocity: 122.3 cm/sec. ICA peak systolic velocity: 101.8 cm/sec. ICA/CCA PSV Ratio: 0.83. Left Vertebral Artery: Antegrade flow. IMPRESSION: 1. Right Internal Carotid Artery: Less than 50% diameter stenosis. 2. Left Internal Carotid Artery: Less than 50% diameter stenosis. Velocity criteria are extrapolated from diameter data as defined by the Society of Radiologists in Ul trasound Consensus Conference, Radiology 2003; 229;340-346. Degree of || ICA PSV || Plaque || ICA/CCA Stenosis (%) || (cm/sec) || estimate (%) || PSV Ratio Normal..............||....<125............||....None..........||.....<2.0 <50....................||....<125...........||.......<50..........||.....<2.0 50-69.................||..125-230.......||.......>50..........||...2.0-4.0 >70 but <100....||..>230..............||........>50........||.....>4.0 Near occlusion..||.High/low/none||....visible........||..variable Total occlusion..||..None.............||...no lumen.....||.........N/A Signer Name: Vern Stewart MD Signed: 05/03/2019 4:32 PM Workstation Name: [id number]
[2019-05-03] MEDS: LOPRESSOR PO SCH (21:12)
[2019-05-03] MEDS: LANTUS SUB-Q SCH (21:13)
[2019-05-03] MEDS: SODIUM CHLORIDE FLUSH SYRINGE 10 ML IV PRN (21:14)
--- NOTE | 2019-05-04 08:44 | Progress Note ---
Assessment and Plan Assessment and plan: Acute ischemic stroke right With left sided weakness Aspirin Xarelto patient evaluated by Neurologist. Physical therapy recommends acute rehab placement Case management aware of recommendation and is working on rehab replacement paroxysmal atrial fibrillation. Continue Xarelto Cardiology following Diabetes mellitus type 2 Accu-Chek before meals and at bedtime Continue Lantus Humalog Full code status History Interval history: Left sided weakness diagnosed with acute ischemic stroke Hospitalist Physical - Physical exam Narrative exam: Gen: Not in acute distress, lying in bed,obese HEENT: Normocephalic, atraumatic Neck: supple, no JVD Heart: S1 and S2 reg, no murmurs, rubs or gallop Lungs: Clear, no crackles, no wheeze Abd: soft, non tender, non distended, normal BS Ext: No edema, no clubbing, no cyanosis, Neuro: Awake,alert, oriented X 3, left sided weakness 4/5 - Constitutional Vitals: Temp Pulse Resp BP Pulse Ox 98.3 F 71 16 144/72 97 05/04/19 07:36 05/04/19 07:36 05/04/19 07:36 05/04/19 07:36 05/04/19 07:36 General appearance: Present: no acute distress Results - Labs CBC & Chem 7: 05/03/19 02:24 05/03/19 02:24 Labs: Laboratory Last Values WBC 5.6 K/mm3 (4.5-11.0) 05/03/19 02:24 RBC 5.00 M/mm3 (3.65-5.03) 05/03/19 02:24 Hgb 14.1 gm/dl (11.8-15.2) 05/03/19 02:24 Hct 42.2 % (35.5-45.6) 05/03/19 02:24 MCV 84 fl (84-94) 05/03/19 02:24 MCH 28 pg (28-32) 05/03/19 02:24 MCHC 33 % (32-34) 05/03/19 02:24 RDW 13.9 % (13.2-15.2) 05/03/19 02:24 Plt Count 135 K/mm3 (140-440) L 05/03/19 02:24 Lymph % (Auto) 31.7 % (13.4-35.0) 05/03/19 02:24 [place] % (Auto) 8.9 % (0.0-7.3) H 05/03/19 02:24 Eos % (Auto) 2.2 % (0.0-4.3) 05/03/19 02:24 Baso % (Auto) 0.6 % (0.0-1.8) 05/03/19 02:24 Lymph # 1.8 K/mm3 (1.2-5.4) 05/03/19 02:24 [place] # 0.5 K/mm3 (0.0-0.8) 05/03/19 02:24 Eos # 0.1 K/mm3 (0.0-0.4) 05/03/19 02:24 Baso # 0.0 K/mm3 (0.0-0.1) 05/03/19 02:24 Seg Neutrophils % 56.6 % (40.0-70.0) 05/03/19 02:24 Seg Neutrophils # 3.2 K/mm3 (1.8-7.7) 05/03/19 02:24 PT 22.1 Sec. (12.2-14.9) H 05/03/19 02:24 INR 1.98 (0.87-1.13) H 05/03/19 02:24 APTT 32.1 Sec. (24.2-36.6) 05/03/19 02:24 16.2 Sec. (15.1-19.6) 05/03/19 02:24 Sodium 144 mmol/L (137-145) 05/03/19 02:24 Potassium 4.1 mmol/L (3.6-5.0) 05/03/19 02:24 Chloride 110.8 mmol/L (98-107) H 05/03/19 02:24 Carbon Dioxide 23 mmol/L (22-30) 05/03/19 02:24 14 mmol/L 05/03/19 02:24 BUN 8 mg/dL (9-20) L 05/03/19 02:24 1.0 mg/dL (0.8-1.5) 05/03/19 02:24 Estimated GFR > 60 ml/min 05/03/19 02:24 8 % 05/03/19 02:24 Glucose 138 mg/dL (75-100) H 05/03/19 02:24 POC Glucose 181 (70-105) H 05/04/19 07:45 8.4 % (4-6) H 05/04/19 04:02 Calcium 9.8 mg/dL (8.4-10.2) 05/03/19 02:24 < 0.010 ng/mL (0.00-0.029) 05/03/19 02:24 Triglycerides 237 mg/dL (2-149) H 05/03/19 02:24 Cholesterol 122 mg/dL (50-199) 05/03/19 02:24 69 mg/dL (50-130) 05/03/19 02:24 32 mg/dL (40-59) L 05/03/19 02:24 3.81 % 05/03/19 02:24 Yellow (Yellow) 05/03/19 11:50 Clear (Clear) 05/03/19 11:50 5.0 (5.0-7.0) 05/03/19 11:50 Ur Specific [place] 1.018 (1.003-1.030) 05/03/19 11:50 <15 mg/dl mg/dL (Negative) 05/03/19 11:50 >=500 mg/dL (Negative) 05/03/19 11:50 20 mg/dL (Negative) 05/03/19 11:50 Sm (Negative) 05/03/19 11:50 Neg (Negative) 05/03/19 11:50 Neg (Negative) 05/03/19 11:50 < 2.0 mg/dL (<2.0) 05/03/19 11:50 Ur Leukocyte Esterase Neg (Negative) 05/03/19 11:50 3.0 /HPF (0.0-6.0) 05/03/19 11:50 2.0 /HPF (0.0-6.0) 05/03/19 11:50 3+ /HPF 05/03/19 11:50 Active Medications - Current Medications Current Medications: Generic Name Dose Route Start Last Admin Trade Name Freq PRN Reason Stop Dose Admin Acetaminophen 650 mg 05/03/19 04:08 Tylenol PO Q4H PRN Pain, Mild (1-3) Acetaminophen/Hydrocodone Bitart 1 each 05/03/19 03:51 [place] 5/325 PO Q6H PRN Pain (4-6) Aspirin 81 mg 05/03/19 10:00 05/03/19 11:57 Halfprin Ec PO 81 mg QDAY LISANDRA Administration Atorvastatin Calcium 40 mg 05/03/19 22:00 05/03/19 21:12 Lipitor PO 40 mg QHS LISANDRA Administration Bisacodyl 10 mg 05/03/19 04:08 Dulcolax [place] QDAY PRN Constipation Dextrose 50 ml 05/03/19 04:08 D50w (25gm) Syringe IV PRN PRN Hypoglycemia Ergocalciferol 50,000 unit 05/03/19 10:00 05/03/19 11:57 Vitamin D2 PO 50,000 unit We LISANDRA Administration Insulin Glargine 55 units 05/03/19 22:00 05/03/19 21:13 Lantus SUB-Q 55 units QHS LISANDRA Administration Insulin Human Lispro 0 unit 05/03/19 07:30 05/03/19 21:13 Humalog SUB-Q 2 unit ACHS LISANDRA Administration Protocol Insulin Human Lispro 20 unit 05/03/19 07:30 05/03/19 18:08 Humalog SUB-Q 20 unit AC LISANDRA Administration Labetalol HCl 10 mg 05/03/19 04:08 Normodyne IV Q4H PRN BP >170/105; hold for HR <60 Magnesium Hydroxide 30 ml 05/03/19 04:08 Milk Of Magnesia PO Q4H PRN Constipation Metoclopramide HCl 10 mg 05/03/19 04:08 Reglan PO Q6H PRN Nausea And Vomiting Metoprolol Tartrate 25 mg 05/03/19 22:00 05/03/19 21:12 Lopressor PO 25 mg BID LISANDRA Administration Ondansetron HCl 4 mg 05/03/19 04:08 Zofran IV Q8H PRN Nausea And Vomiting Promethazine HCl 25 mg 05/03/19 04:08 Phenergan MA Q6H PRN Nausea And Vomiting Rivaroxaban 20 mg 05/03/19 08:00 05/03/19 11:57 Xarelto PO 20 mg QDDIAB LISANDRA Administration Sodium Chloride 10 ml 05/03/19 04:08 05/03/19 21:14 Sodium Chloride Flush Syringe 10 Ml IV 10 ml PRN PRN Administration LINE FLUSH Nutrition/Malnutrition Assess - Dietary Evaluation Nutrition/Malnutrition Findings: Nutrition Notes Start: 05/03/19 16:15 Freq: Status: Active Protocol: Document 05/03/19 16:15 RM (Rec: 05/03/19 16:16 RM [id number]) Nutrition Notes Need for Assessment generated from: MD Order Initial or Follow up Brief Note Subjective/Other Information Consulted for nutrition recommendations and CVA diet education. Pt w/PT at time of visit. Nutrition Intervention Follow-Up By: 05/04/19 Additional Comments Follow for assessment, CVA diet education
--- NOTE | 2019-05-04 09:34 | Progress Note ---
Assessment and Plan 1. Acute CVA history of prior CVA 2. Paroxysmal atrial fibrillation 3. Essential hypertension 4. Type 2 diabetes mellitus 5. Hyperlipidemia Plan Resume anticoagulation if okay with neurology will recommend follow-up with the [facility] on discharge. Subjective Date of service: 05/04/19 Interval history: No cardiac symptoms. Objective Vital Signs Temp Pulse Resp BP Pulse Ox 05/04/19 07:36 98.3 F 71 16 144/72 97 05/04/19 06:00 60 05/04/19 03:48 98.1 F 60 20 141/71 97 05/03/19 23:39 98.2 F 59 L 18 136/71 95 05/03/19 22:19 99 05/03/19 22:00 68 05/03/19 21:12 75 138/78 05/03/19 19:34 98.1 F 75 18 138/78 96 05/03/19 19:00 18 98 05/03/19 16:52 98.4 F 69 16 143/77 97 05/03/19 11:36 98.1 F 77 14 160/85 97 - Physical Examination General: Appears Well HEENT: Positive: PERRL Neck: Positive: trachea midline Cardiac: Positive: Reg Rate and Rhythm, Regular Rhythm, S1/S2, PMI, Laterally Displaced Lungs: Positive: clear to auscultation, No Wheeze, Rales, Rhonchi Neuro: Positive: Weakness (left sided) Abdomen: Positive: Unremarkable, Soft Extremities: Absent: edema - Labs and Meds Lipids 05/03/19 Range/Units 02:24 Triglycerides 237 H (2-149) mg/dL Cholesterol 122 (50-199) mg/dL HDL Cholesterol 32 L (40-59) mg/dL Cholesterol/HDL Ratio 3.81 %
[2019-05-04] MEDS: HumaLOG SUB-Q SCH ×7 (10:15→22:00)
[2019-05-04] MEDS: LOPRESSOR PO SCH ×2 (10:15→21:49)
[2019-05-04] MEDS: HALFPRIN EC PO SCH (10:15)
[2019-05-04] MEDS: XARELTO PO SCH (10:17)
--- NOTE | 2019-05-04 17:38 | Progress Note ---
Assessment and Plan Mr. Lorenzo is a 68-year-old gentleman who was admitted for sudden onset of left upper and lower extremities without any aphasia. Workup including MRI of the brain showed acute infarct in the right basal ganglia. MRA of intracranial vessels did not show any significant abnormalities and also carotid duplex did not show any significant stenoses. Patient states he feels much better today. Physical examination. Patient is alert and appropriate. Has insight into his problems and answers questions appropriately. Heart. Normal rate and rhythm. Cranial nerves. There is no facial asymmetry and there is no loss of facial sensation on either side. Other cranial nerves are within normal limits. Motor. Mild weakness of left upper and lower extremities, left upper being equal to left lower extremity weakness. Muscle tone was increased on the left upper and lower extremities. Reflexes : Reflexes are slightly increased on the left side as compared to the right Sincerely. Sensory examination is grossly within normal limits. Impression: Acute right basal ganglia infarct while on RIVOROXABAN Recommend #1. Add aspirin 81 mg by mouth daily along with RIVOROXABAN, #2. Patient can be discharged home and he can get physical therapy at home. Detailed dietary counseling was done to the patient infront of his and sister.Patient voiced understanding and seem to be motivated to make a dietary change in positive direction Objective - Vital Sign Vital Signs - 12hr 05/04/19 05/04/19 05/04/19 06:00 07:36 10:00 Temperature 98.3 F Pulse Rate 60 71 55 L Respiratory 16 Rate Blood Pressure 144/72 O2 Sat by Pulse 97 Oximetry 05/04/19 12:16 Temperature 98.3 F Pulse Rate 61 Respiratory 16 Rate Blood Pressure 174/72 O2 Sat by Pulse 95 Oximetry - Laboratory Findings CBC and BMP: 05/03/19 02:24 05/03/19 02:24 Abnormal Lab Findings: Abnormal Labs 05/03/19 05/03/19 05/03/19 02:04 02:24 02:24 Plt Count 135 L [place] % (Auto) 8.9 H PT 22.1 H INR 1.98 H Chloride BUN Glucose POC Glucose 144 H Hemoglobin A1c Triglycerides HDL Cholesterol 05/03/19 05/03/19 05/03/19 02:24 02:24 08:20 Plt Count [place] % (Auto) PT INR Chloride 110.8 H BUN 8 L Glucose 138 H POC Glucose 210 H Hemoglobin A1c Triglycerides 237 H HDL Cholesterol 32 L 05/03/19 05/03/19 05/03/19 11:43 17:00 20:44 Plt Count [place] % (Auto) PT INR Chloride BUN Glucose POC Glucose 250 H 235 H 170 H Hemoglobin A1c Triglycerides HDL Cholesterol 05/04/19 05/04/19 05/04/19 04:02 07:45 12:22 Plt Count [place] % (Auto) PT INR Chloride BUN Glucose POC Glucose 181 H 165 H Hemoglobin A1c 8.4 H Triglycerides HDL Cholesterol
[2019-05-04] MEDS: SODIUM CHLORIDE FLUSH SYRINGE 10 ML IV PRN (21:49)
[2019-05-04] MEDS: LANTUS SUB-Q SCH (22:00)
[2019-05-05 05:30] LABS: Hematocrit 41.9 % (35.5-45.6); Hemoglobin 14.1 gm/dl (11.8-15.2); Mean Corpuscular HGB Conc 34 % (32-34); Mean Corpuscular Volume 84 fl (84-94); Platelet Count 129 K/mm3 (140-440); Red Blood Count 4.97 M/mm3 (3.65-5.03); Red Cell Distribution Width 13.6 % (13.2-15.2)
[2019-05-05 05:48] LABS: BUN/Creatinine Ratio 12; Blood Urea Nitrogen 12 mg/dL (9-20); Calcium 10.3 mg/dL (8.4-10.2); Hemolysis Index 8
[2019-05-05] MEDS ORDERED: NACL 0.9% 1000 ML 1,000 ML IV SCH (08:00)
[2019-05-05] MEDS: XARELTO PO SCH (08:50)
[2019-05-05] MEDS: HumaLOG SUB-Q SCH ×4 (08:50→12:42)
[2019-05-05] MEDS: LOPRESSOR PO SCH (09:21)
[2019-05-05] MEDS: HALFPRIN EC PO SCH (09:21)
--- NOTE | 2019-05-05 10:22 | Progress Note ---
Assessment and Plan 1. Acute CVA Admits non-compliance with xarelto at home 2. Paroxysmal atrial fibrillation 3. Essential hypertension 4. Type 2 diabetes mellitus 5. Hyperlipidemia Echo this admission - normal LVEF, no PFO or ASD Plan Continue xarelto and metoprolol No further cardiac work-up is needed Subjective Date of service: 05/05/19 Principal diagnosis: CVA Interval history: Patient doing well Patient denies chest pain or shortness of breath Objective Vital Signs Temp Pulse Resp BP Pulse Ox 05/05/19 09:21 65 138/71 05/05/19 07:39 98.5 F 65 18 138/71 97 05/05/19 04:50 98.2 F 58 L 20 134/71 95 05/04/19 23:55 98.4 F 60 20 140/65 96 05/04/19 22:00 61 18 98 05/04/19 21:49 64 156/77 05/04/19 19:54 98.2 F 64 18 156/77 96 05/04/19 12:16 98.3 F 61 16 174/72 95 - Physical Examination General: Appears Well HEENT: Positive: PERRL Neck: Positive: trachea midline Cardiac: Positive: Reg Rate and Rhythm Lungs: Positive: Normal Exam Neuro: Positive: Weakness (left sided) Abdomen: Positive: Unremarkable, Soft Extremities: Absent: edema - Labs and Meds CBC 05/05/19 Range/Units 04:27 WBC 5.5 (4.5-11.0) K/mm3 RBC 4.97 (3.65-5.03) M/mm3 Hgb 14.1 (11.8-15.2) gm/dl Hct 41.9 (35.5-45.6) % Plt Count 129 L (140-440) K/mm3 Comprehensive Metabolic Panel 05/05/19 Range/Units 04:27 Sodium 142 (137-145) mmol/L Potassium 4.4 (3.6-5.0) mmol/L Chloride 106.1 (98-107) mmol/L Carbon Dioxide 26 (22-30) mmol/L BUN 12 (9-20) mg/dL Creatinine 1.0 (0.8-1.5) mg/dL Glucose 154 H (75-100) mg/dL Calcium 10.3 H (8.4-10.2) mg/dL
--- NOTE | 2019-05-05 10:59 | Progress Note ---
Hospitalist Physical - Constitutional Vitals: Temp Pulse Resp BP Pulse Ox 98.5 F 65 18 138/71 97 05/05/19 07:39 05/05/19 09:21 05/05/19 10:00 05/05/19 09:21 05/05/19 07:39 General appearance: Present: no acute distress Results - Labs CBC & Chem 7: 05/05/19 04:27 05/05/19 04:27 Labs: Laboratory Last Values WBC 5.5 K/mm3 (4.5-11.0) 05/05/19 04:27 RBC 4.97 M/mm3 (3.65-5.03) 05/05/19 04:27 Hgb 14.1 gm/dl (11.8-15.2) 05/05/19 04:27 Hct 41.9 % (35.5-45.6) 05/05/19 04:27 MCV 84 fl (84-94) 05/05/19 04:27 MCH 28 pg (28-32) 05/05/19 04:27 MCHC 34 % (32-34) 05/05/19 04:27 RDW 13.6 % (13.2-15.2) 05/05/19 04:27 Plt Count 129 K/mm3 (140-440) L 05/05/19 04:27 Lymph % (Auto) 31.7 % (13.4-35.0) 05/03/19 02:24 [place] % (Auto) 8.9 % (0.0-7.3) H 05/03/19 02:24 Eos % (Auto) 2.2 % (0.0-4.3) 05/03/19 02:24 Baso % (Auto) 0.6 % (0.0-1.8) 05/03/19 02:24 Lymph # 1.8 K/mm3 (1.2-5.4) 05/03/19 02:24 [place] # 0.5 K/mm3 (0.0-0.8) 05/03/19 02:24 Eos # 0.1 K/mm3 (0.0-0.4) 05/03/19 02:24 Baso # 0.0 K/mm3 (0.0-0.1) 05/03/19 02:24 Seg Neutrophils % 56.6 % (40.0-70.0) 05/03/19 02:24 Seg Neutrophils # 3.2 K/mm3 (1.8-7.7) 05/03/19 02:24 PT 22.1 Sec. (12.2-14.9) H 05/03/19 02:24 INR 1.98 (0.87-1.13) H 05/03/19 02:24 APTT 32.1 Sec. (24.2-36.6) 05/03/19 02:24 16.2 Sec. (15.1-19.6) 05/03/19 02:24 Sodium 142 mmol/L (137-145) 05/05/19 04:27 Potassium 4.4 mmol/L (3.6-5.0) 05/05/19 04:27 Chloride 106.1 mmol/L (98-107) 05/05/19 04:27 Carbon Dioxide 26 mmol/L (22-30) 05/05/19 04:27 14 mmol/L 05/05/19 04:27 BUN 12 mg/dL (9-20) 05/05/19 04:27 1.0 mg/dL (0.8-1.5) 05/05/19 04:27 Estimated GFR > 60 ml/min 05/05/19 04:27 12 % 05/05/19 04:27 Glucose 154 mg/dL (75-100) H 05/05/19 04:27 POC Glucose 176 (70-105) H 05/05/19 07:44 8.4 % (4-6) H 05/04/19 04:02 Calcium 10.3 mg/dL (8.4-10.2) H 05/05/19 04:27 < 0.010 ng/mL (0.00-0.029) 05/03/19 02:24 Triglycerides 237 mg/dL (2-149) H 05/03/19 02:24 Cholesterol 122 mg/dL (50-199) 05/03/19 02:24 69 mg/dL (50-130) 05/03/19 02:24 32 mg/dL (40-59) L 05/03/19 02:24 3.81 % 05/03/19 02:24 Yellow (Yellow) 05/03/19 11:50 Clear (Clear) 05/03/19 11:50 5.0 (5.0-7.0) 05/03/19 11:50 Ur Specific [place] 1.018 (1.003-1.030) 05/03/19 11:50 <15 mg/dl mg/dL (Negative) 05/03/19 11:50 >=500 mg/dL (Negative) 05/03/19 11:50 20 mg/dL (Negative) 05/03/19 11:50 Sm (Negative) 05/03/19 11:50 Neg (Negative) 05/03/19 11:50 Neg (Negative) 05/03/19 11:50 < 2.0 mg/dL (<2.0) 05/03/19 11:50 Ur Leukocyte Esterase Neg (Negative) 05/03/19 11:50 3.0 /HPF (0.0-6.0) 05/03/19 11:50 2.0 /HPF (0.0-6.0) 05/03/19 11:50 3+ /HPF 05/03/19 11:50 Active Medications - Current Medications Current Medications: Generic Name Dose Route Start Last Admin Trade Name Freq PRN Reason Stop Dose Admin Acetaminophen 650 mg 05/03/19 04:08 Tylenol PO Q4H PRN Pain, Mild (1-3) Acetaminophen/Hydrocodone Bitart 1 each 05/03/19 03:51 [place] 5/325 PO Q6H PRN Pain (4-6) Aspirin 81 mg 05/03/19 10:00 05/05/19 09:21 Halfprin Ec PO 81 mg QDAY LISANDRA Administration Atorvastatin Calcium 40 mg 05/03/19 22:00 05/04/19 21:49 Lipitor PO 40 mg QHS LISANDRA Administration Bisacodyl 10 mg 05/03/19 04:08 Dulcolax [place] QDAY PRN Constipation Dextrose 50 ml 05/03/19 04:08 D50w (25gm) Syringe IV PRN PRN Hypoglycemia Ergocalciferol 50,000 unit 05/03/19 10:00 05/03/19 11:57 Vitamin D2 PO 50,000 unit We LISANDRA Administration Sodium Chloride 1,000 mls @ 75 mls/hr 05/05/19 08:00 05/05/19 09:21 Nacl 0.9% 1000 Ml IV 75 mls/hr DIRECT LISANDRA Administration Insulin Glargine 55 units 05/03/19 22:00 05/04/19 22:00 Lantus SUB-Q Not Given QHS LISANDRA Insulin Human Lispro 0 unit 05/03/19 07:30 05/05/19 08:50 Humalog SUB-Q 2 unit ACHS LISANDRA Administration Protocol Insulin Human Lispro 20 unit 05/03/19 07:30 05/05/19 08:51 Humalog SUB-Q 20 unit AC LISANDRA Administration Labetalol HCl 10 mg 05/03/19 04:08 Normodyne IV Q4H PRN BP >170/105; hold for HR <60 Magnesium Hydroxide 30 ml 05/03/19 04:08 Milk Of Magnesia PO Q4H PRN Constipation Metoclopramide HCl 10 mg 05/03/19 04:08 Reglan PO Q6H PRN Nausea And Vomiting Metoprolol Tartrate 25 mg 05/03/19 22:00 05/05/19 09:21 Lopressor PO 25 mg BID LISANDRA Administration Ondansetron HCl 4 mg 05/03/19 04:08 Zofran IV Q8H PRN Nausea And Vomiting Promethazine HCl 25 mg 05/03/19 04:08 Phenergan [place] Q6H PRN Nausea And Vomiting Rivaroxaban 20 mg 05/03/19 08:00 05/05/19 08:50 Xarelto PO 20 mg QDDIAB LISANDRA Administration Sodium Chloride 10 ml 05/03/19 04:08 05/04/19 21:49 Sodium Chloride Flush Syringe 10 Ml IV 10 ml PRN PRN Administration LINE FLUSH Nutrition/Malnutrition Assess - Dietary Evaluation Nutrition/Malnutrition Findings: Nutrition Notes Start: 05/03/19 16:15 Freq: Status: Active Protocol: Document 05/04/19 14:15 RM (Rec: 05/04/19 14:25 RM [id number]) Nutrition Notes Initial or Follow up Assessment Current Diagnosis Diabetes,Stroke Current Diet Cardiac/Consisent CHO Labs/Tests A1c 8.4 Pertinent Medications Reviewed Height 5 ft 9 in Weight 100.1 kg [place] Body Weight (kg) 72.72 BMI 32.5 Subjective/Other Information Pt stated that his appetite is good. Noted lunch at bedside w/most eaten. Pt stated that he had not been previously educated on CVA diet but had been previously educated on DM diet education. Pt had some difficulty recalling what he was taught. Reviewed CVA and DM diet education. Gave handouts. Burn Absent Trauma Absent #2 Nutrition Diagnosis Food and nutrition-related knowledge deficit Etiology inability to recall previous education As Evidenced by Signs and Symptoms pt desire for education #1 Nutrition Diagnosis Food and nutrition-related knowledge deficit Etiology lack of prior education As Evidenced by Signs and Symptoms no prior knowledge of need for food and nutrition recommendations Nutrition Intervention Teaching Recipient Patient Learning Readiness Good Teaching Methods Discussion,Handout Response to Teaching Verbalize understanding Education Handouts Provided Stroke nutrition therapy. Carbohydrate counting for people with diabetes. Barriers to Learning No Barriers RD phone number provided Yes Patient aware of follow up options Yes Goal #1 Adhere to CVA diet. Goal #2 Utilize carbohydrate counting. Revisit per MD consult or patient Sign Off request:
[2019-05-05 12:23] VITALS: BP 134/78
--- NOTE | 2019-05-05 14:08 | Discharge Summary ---
Providers - Providers Date of Admission: 05/03/19 03:28 Date of discharge: 05/05/19 Attending physician: BATSHEVA PETER 05/03/19 04:07 Consult to Physician [CONS] Routine Comment: Consulting Provider: CRISTIANO FRAZIER Physician Instructions: Reason For Exam: afib and cva 05/03/19 04:08 Consult to Case Management [CONS] Routine Services Needed at Discharge: Other Notified:: case management Comment:: cva, need rehab Consult to Dietitian/Nutrition [CONS] Routine Physician Instructions: Reason For Exam: Reason for Consult: Nutrition Recommendations Reason for Consult: Diet education Consult to Physician [CONS] Routine Comment: Consulting Provider: SONYA ZARCO Physician Instructions: Reason For Exam: cva Occupational Therapy Evaluate and Treat [CONS] Routine Comment: Reason For Exam: Neuro deficits Physical Therapy Evaluation and Treat [CONS] Routine Comment: Reason For Exam: Neuro deficits Primary care physician: [facility] Hospitalization Condition: Fair Hospital course: Patient is 68-year-old -[place] male with hypertension, atrial fibrillation, presented with left sided weakness. He was seen and examined in Emergency Department. CT head was unremarkable. He was given Aspirin and admitted to rule out stroke. MRI Brain confirmed acute ischemic stroke on right. He was seen by PT and OT and acute rehab recommended. he was then discharged to acute rehab on 05/05/19. Aspirin was added to Xarelto he was taking prior to admission. Total time spent on discharge, 33 mins Disposition: [id number] IN REHAB FACILITY - Discharge Diagnoses (1) Acute ischemic stroke Status: Acute (2) PAF (paroxysmal atrial fibrillation) Status: Acute (3) Hypertension Status: Acute Qualifiers: Hypertension type: essential hypertension Qualified Code(s): I10 - Essential (primary) hypertension Core Measure Documentation - Palliative Care Palliative Care/ Comfort Measures: Not Applicable - Core Measures Any of the following diagnoses?: stroke - Stroke Discharge Requirements Statin for LDL = or >70 mg/dl on DC: Yes Anticoag for atrial fib/atrial flutter: Yes Antithrombotic for ischemic stroke: Yes Exam - Constitutional Vitals: Temp Pulse Resp BP Pulse Ox 98.4 F 83 18 134/78 97 05/05/19 11:44 05/05/19 11:44 05/05/19 11:44 05/05/19 11:44 05/05/19 11:44 Plan Activity: advance as tolerated Diet: low fat, low cholesterol, low salt, diabetic Follow up with: CHLOE LANDRUMDIXON MD YANELI [Referring] - 3-5 Days Prescriptions: Aspirin EC 81 mg PO QDAY #30 tablet
== END 2019-05-05 16:26 | DRG 65 ==
LOC: ED 01:48 → 4A 03:28
PROVIDERS: ADMIT Internal Medicine; ATTEND Internal Medicine
DX: I63.9 Cerebral infarction, unspecified (principal); G81.94 Hemiplegia, unspecified affecting left nondominant side; I10 Essential (primary) hypertension; I48.0 Paroxysmal atrial fibrillation; E11.9 Type 2 diabetes mellitus without complications; Z91.14 Patient's other noncompliance with medication regimen; E78.5 Hyperlipidemia, unspecified; Z79.4 Long term (current) use of insulin; Z79.899 Other long term (current) drug therapy; Z87.442 Personal history of urinary calculi; Z72.89 Other problems related to lifestyle
CPT/HCPCS: 36415; 70450; 70544; 70551; 80048; 80061; 81001; 82962; 83036; 84484; 85025; 85027; 85610; 85670; 85730; 93005; 93010; 93306; 93880; 94760; G0378; A9270-GY; J1815; J7030

== ENCOUNTER 2019-05-05 15:19 | Inpatient (IN) | payer MEDICARE ==
[2019-05-05] MEDS ORDERED: DULCOLAX PR PRN ×2 (16:02→16:34)
[2019-05-05] MEDS ORDERED: ALUM-MAG HYDROX-SIMETH 200-200-20MG/5ML PO PRN (16:02)
[2019-05-05] MEDS ORDERED: D50W (25GM) Syringe IV PRN (16:02)
[2019-05-05] MEDS ORDERED: TYLENOL PO PRN (16:02)
[2019-05-05] MEDS ORDERED: ZOFRAN ODT PO PRN (16:13)
[2019-05-05] MEDS ORDERED: NORCO 5/325 PO PRN (16:13)
[2019-05-05] MEDS: HumaLOG SUB-Q SCH ×2 (16:35→21:52)
[2019-05-05] MEDS ORDERED: LANTUS SUB-Q SCH (21:00)
[2019-05-05] MEDS: LOPRESSOR PO SCH (21:37)
[2019-05-06 04:41] LABS: Basophils % (Auto) 0.6 % (0.0-1.8); Eosinophils # (Auto) 0.1 K/mm3 (0.0-0.4); Eosinophils % (Auto) 2.7 % (0.0-4.3); Hematocrit 44.7 % (35.5-45.6); Hemoglobin 14.9 gm/dl (11.8-15.2); Lymphocytes # (Auto) 2.2 K/mm3 (1.2-5.4); Lymphocytes % (Auto) 40.2 % (13.4-35.0); Mean Corpuscular HGB Conc 33 % (32-34); Mean Corpuscular Volume 85 fl (84-94); Monocytes # (Auto) 0.5 K/mm3 (0.0-0.8); Monocytes % (Auto) 9.7 % (0.0-7.3); Platelet Count 141 K/mm3 (140-440); Red Blood Count 5.28 M/mm3 (3.65-5.03); Red Cell Distribution Width 13.6 % (13.2-15.2)
[2019-05-06 05:51] LABS: Alanine Aminotransferase 23 units/L (7-56); BUN/Creatinine Ratio 13; Blood Urea Nitrogen 14 mg/dL (9-20); Calcium 10.5 mg/dL (8.4-10.2); Hemolysis Index 1
[2019-05-06] MEDS: HumaLOG SUB-Q SCH ×4 (08:38→22:46)
[2019-05-06] MEDS: HALFPRIN EC PO SCH (08:38)
[2019-05-06] MEDS: XARELTO PO SCH (08:38)
[2019-05-06] MEDS: LOPRESSOR PO SCH ×2 (11:35→22:02)
--- NOTE | 2019-05-06 12:45 | History and Physical Report ---
History of Present Illness Date: 05/06/19 Date of admission: 05/05/19 16:02 Chief Complaint: CVA History of present illness: 68 yo RHD male who woke up with decreased ability to move left side of body. "He" drove to ER with his as a passenger. After filling out paperwork he worsened and was unable to move the left side. Head CT showed small chronic b/l lacunar infarcts. MRI brain showed small infarct in right posterior corpus striatal region. Left facial drop now. Denies dysphagia. No aphasia or dysarthria noted. Some mild constipation. No pain to speak of. After the patient was medically stabilized he was transferred for further rehabilitation. All available medical records have been reviewed. Plan of care was discussed with patient and family. Past History Past Medical History: atrial fib, diabetes, hypertension, hyperlipidemia, other (nephrolithiasis) Past Surgical History: Other (lithotripsy, heart cath w/o stent) Social history: , lives with family (single level, 4 DREW, Independent, retired), full code. denies: smoking, alcohol abuse (occasional use), prescription drug abuse, IV drug use Family history: diabetes, hypertension Medications and Allergies Allergies Allergy/AdvReac Type Severity Reaction Status Date / Time No Known Allergies Allergy Unverified 10/25/13 17:12 Home Medications Medication Instructions Recorded Confirmed Last Taken Type AtorvaSTATin [Lipitor] 20 mg PO DAILY 05/03/19 05/03/19 Unknown History Ergocalciferol (Vitamin D2) 50,000 units PO QWEEK 05/03/19 05/03/19 Unknown History Glimepiride [Amaryl] 2 mg PO QAM 05/03/19 05/03/19 Unknown History Insulin Aspart 20 units SQ ACHS 05/03/19 05/03/19 Unknown History Insulin Glargine 55 units SQ QHS 05/03/19 05/03/19 Unknown History Lisinopril 5 mg PO DAILY 05/03/19 05/03/19 Unknown History Rivaroxaban 20 mg PO DAILY 05/03/19 05/03/19 1 Day Ago History ~05/02/19 Sildenafil 100 mg PO QWEEK PRN 05/03/19 05/03/19 Unknown History Aspirin EC 81 mg PO QDAY #30 tablet 05/05/19 Unknown Rx Active Meds: Active Medications Acetaminophen (Tylenol) 650 mg PO Q4H PRN PRN Reason: Pain MILD(1-3)/Fever >100.5/GOEL Acetaminophen/Hydrocodone Bitart ([place] 5/325) 1 each PO Q6H PRN PRN Reason: Pain, Moderate (4-6) Al Hydrox/Mg Hydrox/Simethicone (Alum-Mag Hydrox-Simeth [phone]/5ml) 30 ml PO Q4H PRN PRN Reason: Indigestion Aspirin (Halfprin Ec) 81 mg PO QDAY [facility] Last Admin: 05/06/19 08:38 Dose: 81 mg Documented by: Atorvastatin Calcium (Lipitor) 40 mg PO QHS [facility] Last Admin: 05/05/19 21:36 Dose: 40 mg Documented by: Bisacodyl (Dulcolax) 10 mg UT QDAY PRN PRN Reason: Constipation Dextrose (D50w (25gm) Syringe) 50 ml IV PRN PRN PRN Reason: Hypoglycemia Ergocalciferol (Vitamin D2) 50,000 unit PO [facility] Insulin [facility]ine (Lantus) [facility] Last Admin: 05/05/19 21:51 Dose: 10 units Documented by: Insulin Human Lispro (Humalog) 0 unit SUB-Q [facility]; Protocol Last Admin: 05/06/19 08:38 Dose: 2 unit Documented by: Metoprolol Tartrate (Lopressor) 25 mg PO BID [facility] Last Admin: 05/06/19 11:35 Dose: 25 mg Documented by: Ondansetron HCl (Zofran Odt) 4 mg PO Q8H PRN PRN Reason: Nausea And Vomiting Polyethylene Glycol (Miralax 3350) 17 gm PO QDAY PRN PRN Reason: Constipation Rivaroxaban (Xarelto) 20 mg PO QDDIAB [facility]; Protocol Last Admin: 05/06/19 08:38 Dose: 20 mg Documented by: Review of Systems All systems: negative (ROS negative for 12 systems except as noted below with pertinent positives and negatives.) Constitutional: weakness Ears, nose, mouth and throat: no decreased hearing, no dysphagia, no hoarseness Cardiovascular: high blood pressure, no chest pain, no palpitations, no rapid/irregular heart beat, no edema, no dyspnea on exertion Respiratory: no cough, no shortness of breath Gastrointestinal: constipation (slight), no abdominal pain, no nausea, no vomit ing, no diarrhea Genitourinary Male: no dysuria Musculoskeletal: no arm numbness/tingling, no myalgias Integumentary: no rash, no pruritis, no wounds Neurological: paralysis, weakness, lack of coordination, gait dysfunction, no aphasia, no change in speech, no hearing difficulties, no spasticity Psychiatric: no anxiety, no depression Endocrine: high blood sugars Exam - Exam Narrative exam: MUSCULOSKELETAL SPECIALTY EXAM CONSTITUTIONAL: Well developed, well nourished, appropriately groomed. RIGHT hand dominant. LYMPHATIC: No appreciable abnormalities palpable in neck RESPIRATORY: Clear to auscultation bilaterally, no increased work of breathing CARDIOVASCULAR: Mild swelling in LUE, mostly at hand. Otherwise, Regular Rate/ Rhythm, no swelling, edema or tenderness in BUE or BLE. Pulses palpable in all extremities. All extremities warm. GI: + bowel sounds, soft, NTTP, nondistended. INTEGUMENTARY: Normal, no lesion, rash, masses or bruising noted in extremities. MUSCULOSKELETAL: BUE and BLE normal without defect, crepitus, subluxation, effusion, arthritic changes or TTP. SA EF WE EE FF FA HF KE ADF EHL APF R 5/5 overall L 3/5 3/5 3/5 4-/5 3/5 3/5 2/5 4-/5 3/5 3/5 3/5 ROM decreased on left Tone decreased on left NEURO: CN II : Visual chang full to confrontation CN II, III : PERRL CN III, IV, : EOMI CN V : Facial sensation intact CN VII : Left facial droop, Symmetric eye closure CN VIII : Hearing intact to finger rustle CN IX, X : Palate/uvula elevate midline, phonation normal CN XI : Intact shoulder shrug on right (decreased on left) and head rotation CN XII : Tongue protrudes midline Sensation intact in all extremities without extinction. Reflexes 2+ bilaterally at biceps, brachioradialis and patella. No clonus at ankles. Coordination intact in RUE, no dysmetria noted, decreased on left with incoordination. No tremor noted in 4 extremities. Naming and repetition intact. Follows 2 step commands. Aphasia not appreciated Dysarthria not appreciated Dysphagia not appreciated Neglect not appreciated POSTURE and GAIT: Sitting posture fair with some loss of balance to back left. Gait deferred until seen with therapy. PSYCH: Alert, orientated x3, affect appears euthymic. Insight appears intact. - Constitutional Vitals: Vital Signs - 12hr 05/06/19 05/06/19 05/06/19 04:16 07:06 11:27 Temperature 36.5 C 36.5 C 36.4 C Pulse Rate 78 66 82 Respiratory 19 18 18 Rate Blood Pressure 132/89 129/69 128/70 O2 Sat by Pulse 93 96 94 Oximetry 05/06/19 11:35 Temperature Pulse Rate 82 Respiratory Rate Blood Pressure 128/70 O2 Sat by Pulse Oximetry - Labs CBC & Chem 7: 05/06/19 04:07 05/06/19 04:07 Labs: Laboratory Results - last 72 hr 05/05/19 05/06/19 05/06/19 21:41 04:07 04:07 WBC 5.5 RBC 5.28 H Hgb 14.9 Hct 44.7 MCV 85 MCH 28 MCHC 33 RDW 13.6 Plt Count 141 Lymph % (Auto) 40.2 H [place] % (Auto) 9.7 H Eos % (Auto) 2.7 Baso % (Auto) 0.6 Lymph # 2.2 [place] # 0.5 Eos # 0.1 Baso # 0.0 Seg Neutrophils % 46.8 Seg Neutrophils # 2.5 Sodium 141 Potassium 4.4 Chloride 105.2 Carbon Dioxide 25 Anion Gap 15 BUN 14 Creatinine 1.1 Estimated GFR > 60 BUN/Creatinine Ratio 13 Glucose 245 H POC Glucose 273 H Calcium 10.5 H Total Bilirubin 0.50 AST 24 ALT 23 Alkaline Phosphatase 86 Total Protein 7.3 Albumin 4.0 Albumin/Globulin Ratio 1.2 05/06/19 07:29 WBC RBC Hgb Hct MCV MCH MCHC RDW Plt Count Lymph % (Auto) [place] % (Auto) Eos % (Auto) Baso % (Auto) Lymph # [place] # Eos # Baso # Seg Neutrophils % Seg Neutrophils # Sodium Potassium Chloride Carbon Dioxide Anion Gap BUN Creatinine Estimated GFR BUN/Creatinine Ratio Glucose POC Glucose 245 H Calcium Total Bilirubin AST ALT Alkaline Phosphatase Total Protein Albumin Albumin/Globulin Ratio Assessment and Plan Assessment and plan: Patient was assessed and evaluated for Acute Inpatient Rehab Unit. Due to the patients above-mentioned medical complexity, along with decreased functional mobility and self care, this patient continues to require and be appropriate for a comprehensive, multidisciplinary [id number] rehabilitation program. These needs cannot be met in an outpatient or other less intensive setting. The patient would continue to benefit from skilled therapy intervention for at least 3 hours per day, five days a week, with techniques specific to the needs of the patient to improve function, activities of daily living, and reintegration into the community. The patient continues to require: -- OT to improve ROM, self-care, and learn use of adaptive equipment -- PT to improve strength and balance, functional transfers, and ambulation with energy conservation techniques to improve functional mobility -- PORT PURSER to address cognitive deficits and swallowing ability -- 24 hour RN to ensure and prevent skin breakdown, promote progressive independence while ensuring safety, ensure education regarding medications, and incorporation of the rehabilitation at the bedside -- 24 hour [employer] Circular Sawyer to coordinate this interdisciplinary program, and to manage/prevent complications as a result of the patients medical comorbidities. -Plan of care by day 4 -Weekly team conferences With such a program, there is a reasonable certainty that the goals individualized for this patient can be achieved within the specified length of stay. -CVA with left nondominant hemiparesis: Secondary stroke prevention. Continue therapy as below. Monitor for changes in neuro. Monitor for post stroke depression and shoulder hand syndrome. Will need Left Arm trough for w/c. -Left foot drop: trial Left AFO. Knee is also buckling - may need to trial KI. -Paroxysmal Atrial fibrillation: continue xarelto. Monitor. -Poorly controlled Diabetes: continue insulin and monitor with adjustments as needed. Carb controlled diet. A1c 8.4% on 05/04 -Hypertension: continue medications and adjust as needed -Hyperlipidemia: Continue statin. Triglycerides elevated primarily -Vit D deficiency: check labs, continue replacement as needed. -Z73.6 ADL dysfunction: OT will work on improving ability to perform ADLs (including assistive devices) to increase independence and decrease caregiver burden and improve functional transfers and mobility training. -R26.2 Difficulty walking: PT will work on gait training and proper use of assistive devices and advance as appropriate to use of stairs and outside ambulation on uneven surfaces. -R26.81 Unsteadiness on feet: PT will work on improving static and dynamic sitting and standing balance as well as proper use of assistive devices to decrease risk of falls. -R26.89 Abnormality of gait: PT will work to improve safety and efficiency of gait through neuromotor training and gait training along with instruction on proper use of assistive devices. -M62.81 Muscle weakness: PT & OT will work on strengthening exercises to improve functional strength including mixture of closed and open kinetic chain exercises. -R53.81 Debility: PT & OT will work on improving overall functional status to im prove participation with ADLs, mobility and social involvement. -R53.83 Fatigue: PT & OT will work on improving endurance through aerobic exercises and therapeutic activity while monitoring patients tolerance for activity and vital signs as needed. DVT ppx: on xarelto Pain: Continue physical modalities in therapy and pain medications as needed to achieve functional pain control. Sleep: Monitor and address as needed. Bowel: Monitor and address as needed. Appetite: Monitor and address as needed. Discharge planning: Pending therapy progress and care plan meeting. Will continue discussion with therapy team, SW, patient and family. Restrictions/ Precautions: Falls, aspiration until cleared by PORT PURSER WB status: FWB Functional Hx: ADLs: Independent Cognition: Independent Mobility: No AD Barriers to Discharge: Decreased mobility and ability to perform self care, balance deficits, weakness Estimated Length of Stay: 14-21 days Discharge Destination: Home with family POST ADMISSION PHYSICIAN EVALUATION I have examined the patient and find that functional status, medical condition a nd appropriateness for IRF admission are essentially unchanged from those described in the preadmission screening. Will monitor for worsening Neuro status, shoulder hand syndrome, post stroke depression, DVT/PE, bowel and bladder complications and complications due to hypertension, diabetes, AFib and electrolyte abnormalities. Will attempt to avoid occurrence of these issues or treat them if they present themselves.
[2019-05-06] MEDS: LANTUS SUB-Q SCH (22:45)
[2019-05-07] MEDS: HALFPRIN EC PO SCH (08:58)
[2019-05-07] MEDS: HumaLOG SUB-Q SCH ×4 (08:58→22:21)
[2019-05-07] MEDS: XARELTO PO SCH (08:58)
[2019-05-07] MEDS: LOPRESSOR PO SCH ×2 (08:58→21:47)
[2019-05-07] MEDS: LANTUS SUB-Q SCH (21:47)
[2019-05-08] MEDS: HALFPRIN EC PO SCH (08:31)
[2019-05-08] MEDS: XARELTO PO SCH (08:31)
[2019-05-08] MEDS: LOPRESSOR PO SCH ×2 (08:33→22:04)
[2019-05-08] MEDS: HumaLOG SUB-Q SCH ×3 (11:45→22:27)
--- NOTE | 2019-05-08 14:32 | Progress Note ---
Subjective Date of service: 05/08/19 Principal diagnosis: CVA Interval history: 68 yo RHD male who woke up with decreased ability to move left side of body. "He" drove to ER with his as a passenger. After filling out paperwork he worsened and was unable to move the left side. Head CT showed small chronic b/l lacunar infarcts. MRI brain showed small infarct in right posterior corpus stri atal region. Left facial drop now. Denies dysphagia. No aphasia or dysarthria noted. Patient is participating in therapy and making reasonable progress. Taking rest breaks as needed. +BM. Denies pain, palpitations, dyspnea, cough, N/V, or joint pain. Glucose is elevated. Will increase Lantus and SSI and monitor. On acute care side insulin was being held - attempting to normalize dose. Was on 55u nightly. Discussed possibility of insulin pump and asked him to discuss with tank builder and erector. Vitals have been stable. Monitored in parallel bars with PT. Difficulty with sit to stand. May need AFO going forward. No BUCKLE ASSEMBLER needs. Discussed Xarelto use and that dietary changes from vit K containing foods was not needed. All records, vitals, labs and medications were reviewed. No other issues per patient, nursing or therapy. Objective - Exam Narrative Exam: MUSCULOSKELETAL SPECIALTY EXAM CONSTITUTIONAL: Well developed, well nourished, appropriately groomed. RIGHT hand dominant. RESPIRATORY: Clear to auscultation bilaterally, no increased work of breathing CARDIOVASCULAR: Mild swelling in LUE, mostly at hand. Otherwise, Regular Rate/ Rhythm, no swelling, edema or tenderness in BUE or BLE. All extremities warm. GI: + bowel sounds, soft, NTTP, nondistended. INTEGUMENTARY: Normal, no lesion, rash, masses or bruising noted in extremities. MUSCULOSKELETAL: BUE and BLE normal without defect, crepitus, subluxation, effusion, arthritic changes or TTP. SA EF WE EE FF FA HF KE ADF EHL APF R / overall L 3/5 3/5 3/5 4-/5 3/5 3/5 2/5 4-/5 3/5 3/5 3/5 ROM decreased on left Tone decreased on left NEURO: Left facial droop, Intact shoulder shrug on right (decreased on left) Sensation intact in all extremities without extinction. No tremor noted in 4 extremities. Naming and repetition intact. Follows 2 step commands. Aphasia not appreciated Dysarthria not appreciated Dysphagia not appreciated Neglect not appreciated POSTURE and GAIT: Sitting posture fair with some loss of balance to back left. Gait deferred until seen with therapy, is able to universal grinder tool parallel bars with some support. PSYCH: Alert, orientated x3, affect appears euthymic. Insight appears intact. - Constitutional Vitals: Vital Signs - 12hr 05/08/19 05/08/19 05/08/19 04:28 07:10 11:23 Temperature 37.1 C 36.7 C 36.6 C Pulse Rate 61 66 74 Respiratory 19 20 20 Rate Blood Pressure 108/48 128/76 138/76 O2 Sat by Pulse 97 97 96 Oximetry - Allied health notes Allied health notes reviewed: nursing, PT, ST, OT FIMS assessment as documented by PT/OT/ST: Grooming Patient cleans teeth/dentures: Yes Patient reid/brushes hair: No Patient washes, rinses and Yes dries face: Patient washes, rinses and Yes dries hands: Patient shaves: Yes Patient performs (w/ make-up/ 4/5 (80%) shaving): Grooming FIM Score 4. Minimal Assistance (Patient = 75% or more. Needs touching.) Toileting Toileting Device Urinal,Bedside Commode Patient able to: Adjust clothes before,Adjust clothes after Patient able to perform: 2/3 (67%) Toileting FIM Score 3. Moderate Assistance (Patient = 50% or more. Some lifting.) Social interaction/Memory/Problem solving Social Interaction FIM Score 7. Complete [place] (Interacts appropriately. Controls temper.) Memory FIM Score 7. Complete [place] (Remembers people and routines.) Problem Solving FIM Score 7. Complete [place] (Solves complex problems. Self corrects.) Transfers Mode of Locomotion: Wheelchair Bed/Chair/Wheelchair Transfers 4. Minimal Assistance (Patient = 75% or more. FIM Score Needs touching.) Toilet Transfers FIM Score 3. Moderate Assistance (Patient = 50% or more. Some lifting.) Patient transferred to: Shower Shower Transfers FIM Score 3. Moderate Assistance (Patient = 50% or more. Some lifting.) Locomotion- Stairs Stairs FIM Score 0. Activity does not occur Locomotion- walk/wheelchair Most Frequent Mode of Wheelchair Locomotion: Ambulation Distance 10 Walking FIM Score 1. Total Assistance (Pt. < 25%, 2 or more person assist, or <50 ft.) Wheelchair Propulsion Distance 80 Wheelchair FIM Score 4. Minimal Assistance (Patient = 75% or more. Minimum of 150 ft.) Eating Eating FIM Score 7. Complete [place] (Cuts meat, opens containers, regular diet.) Dressing-Upper body Patient retrieves clothing No items: Patient applies/removes UE N/a prosthesis or orthosis: Upper Body Dressing FIM Score 3. Moderate Assistance (Patient = 50% or more) Dressing-lower body Patient retrieves clothing No items: Patient applies/removes LE N/a prosthesis or orthosis: Lower Body Dressing FIM Score 2. Maximal Assistance (Patient = 25% or more) - Labs CBC & Chem 7: 05/06/19 04:07 05/06/19 04:07 Labs: Laboratory Results - last 72 hr 05/05/19 05/06/19 05/06/19 21:41 04:07 04:07 WBC 5.5 RBC 5.28 H Hgb 14.9 Hct 44.7 MCV 85 MCH 28 MCHC 33 RDW 13.6 Plt Count 141 Lymph % (Auto) 40.2 H [place] % (Auto) 9.7 H Eos % (Auto) 2.7 Baso % (Auto) 0.6 Lymph # 2.2 [place] # 0.5 Eos # 0.1 Baso # 0.0 Seg Neutrophils % 46.8 Seg Neutrophils # 2.5 Sodium 141 Potassium 4.4 Chloride 105.2 Carbon Dioxide 25 Anion Gap 15 BUN 14 Creatinine 1.1 Estimated GFR > 60 BUN/Creatinine Ratio 13 Glucose 245 H POC Glucose 273 H Calcium 10.5 H Total Bilirubin 0.50 AST 24 ALT 23 Alkaline Phosphatase 86 Total Protein 7.3 Albumin 4.0 Albumin/Globulin Ratio 1.2 05/06/19 05/06/19 05/06/19 07:29 13:02 16:47 WBC RBC Hgb Hct MCV MCH MCHC RDW Plt Count Lymph % (Auto) [place] % (Auto) Eos % (Auto) Baso % (Auto) Lymph # [place] # Eos # Baso # Seg Neutrophils % Seg Neutrophils # Sodium Potassium Chloride Carbon Dioxide Anion Gap BUN Creatinine Estimated GFR BUN/Creatinine Ratio Glucose POC Glucose 245 H 255 H 236 H Calcium Total Bilirubin AST ALT Alkaline Phosphatase Total Protein Albumin Albumin/Globulin Ratio 05/06/19 05/07/19 05/07/19 22:31 07:28 11:51 WBC RBC Hgb Hct MCV MCH MCHC RDW Plt Count Lymph % (Auto) [place] % (Auto) Eos % (Auto) Baso % (Auto) Lymph # [place] # Eos # Baso # Seg Neutrophils % Seg Neutrophils # Sodium Potassium Chloride Carbon Dioxide Anion Gap BUN Creatinine Estimated GFR BUN/Creatinine Ratio Glucose POC Glucose 226 H 230 H 294 H Calcium Total Bilirubin AST ALT Alkaline Phosphatase Total Protein Albumin Albumin/Globulin Ratio 05/07/19 05/07/19 05/08/19 16:40 21:09 07:17 WBC RBC Hgb Hct MCV MCH MCHC RDW Plt Count Lymph % (Auto) [place] % (Auto) Eos % (Auto) Baso % (Auto) Lymph # [place] # Eos # Baso # Seg Neutrophils % Seg Neutrophils # Sodium Potassium Chloride Carbon Dioxide Anion Gap BUN Creatinine Estimated GFR BUN/Creatinine Ratio Glucose POC Glucose 269 H 303 H 234 H Calcium Total Bilirubin AST ALT Alkaline Phosphatase Total Protein Albumin Albumin/Globulin Ratio 05/08/19 11:30 WBC RBC Hgb Hct MCV MCH MCHC RDW Plt Count Lymph % (Auto) [place] % (Auto) Eos % (Auto) Baso % (Auto) Lymph # [place] # Eos # Baso # Seg Neutrophils % Seg Neutrophils # Sodium Potassium Chloride Carbon Dioxide Anion Gap BUN Creatinine Estimated GFR BUN/Creatinine Ratio Glucose POC Glucose 332 H Calcium Total Bilirubin AST ALT Alkaline Phosphatase Total Protein Albumin Albumin/Globulin Ratio Assessment and Plan -CVA with left nondominant hemiparesis: Secondary stroke prevention. Continue therapy as below. Monitor for changes in neuro. Monitor for post stroke depression and shoulder hand syndrome. Left Arm trough on w/c. -Left foot drop: trial Left AFO. Knee is also buckling - may need to trial KI. -Paroxysmal Atrial fibrillation: continue xarelto. Monitor. -Poorly controlled Diabetes: continue insulin and monitor with adjustments as needed. Carb controlled diet. A1c 8.4% on 05/04 -Hypertension: continue medications and adjust as needed -Hyperlipidemia: Continue statin. Triglycerides elevated primarily -Vit D deficiency: check labs, continue replacement as needed. -Z73.6 ADL dysfunction: OT will work on improving ability to perform ADLs (including assistive devices) to increase independence and decrease caregiver burden and improve functional transfers and mobility training. -R26.2 Difficulty walking: PT will work on gait training and proper use of assistive devices and advance as appropriate to use of stairs and outside ambulation on uneven surfaces. -R26.81 Unsteadiness on feet: PT will work on improving static and dynamic sitting and standing balance as well as proper use of assistive devices to decrease risk of falls. -R26.89 Abnormality of gait: PT will work to improve safety and efficiency of gait through neuromotor training and gait training along with instruction on proper use of assistive devices. -M62.81 Muscle weakness: PT & OT will work on strengthening exercises to improve functional strength including mixture of closed and open kinetic chain exercises. -R53.81 Debility: PT & OT will work on improving overall functional status to improve participation with ADLs, mobility and social involvement. -R53.83 Fatigue: PT & OT will work on improving endurance through aerobic exercises and therapeutic activity while monitoring patients tolerance for activity and vital signs as needed. DVT ppx: on xarelto Pain: Continue physical modalities in therapy and pain medications as needed to achieve functional pain control. Sleep: Monitor and address as needed. Bowel: Monitor and address as needed. Appetite: Monitor and address as needed. Discharge planning: Pending therapy progress and care plan meeting. Will continue discussion with therapy team, SW, patient and family. Restrictions/ Precautions: Falls WB status: FWB Functional Hx: ADLs: Independent Cognition: Independent Mobility: No AD Barriers to Discharge: Decreased mobility and ability to perform self care, balance deficits, weakness Estimated Length of Stay: 14-21 days Discharge Destination: Home with family
--- NOTE | 2019-05-08 14:52 | IRU Plan of Care ---
Interdisciplinary Plan of Care - IP IRU INTERDISCIPLIN[facility] PLAN: [facility] Plan of Care IRU Interdisciplinary Care Plan Start: 05/05/19 17:50 Freq: Admission then PRN Status: Active Protocol: Document 05/08/19 11:49 TH (Rec: 05/08/19 11:52 TH [id number]) Interdisciplinary Problem List Interdisciplinary Problem List Interdisciplinary Problem List Impaired Bathing/Grooming, Query Text:Answers will Trigger Problems Impaired Dressing,Impaired and Outcomes on Worklist. Mobility,Impaired Transfers, Impaired Bladder/Bowel Management,Impaired Toileting, Impaired Problem Solving,Pain Management,Knowledge Deficits, Impaired Skin/Tissue Integrity ,Discharge Concerns,Impaired Home Management,Impaired Safety,Diabetes Education IRU Interdisciplinary Care Plan Therapy Services Therapy Services Will Include: Physical Therapy,Occupational Query Text:Patient will be seen for a Therapy minimum of 3 hours of daily therapy 5 out of 7 days a week. Therapy intensity may be adjusted within a 7 consecutive day period to effectively serve the individual needs of the patient. Treatment Frequency/Intensity/Duration Treatment Frequency 3 hours per day Treatment Intensity 5 days per week Treatment Duration 14-21 days Problem Area: Eating/Swallowing Eating/Swallowing Outcomes Eating/Swallowing Interventions Problem Area: Bathing/Grooming Bathing/Grooming Outcomes Improve [place] w/ Grooming,Improve [place] w/ Bathing Bathing/Grooming Interventions ADL Training,Use of Assistive Devices,Therapeutic Exercise, Therapeutic Activity, Neuromuscular Re-Education, Balance Work,Activity Tolerance Work,Patient/ Caregiver Education Problem Area: Dressing Dressing Outcomes Improve [place] w/ UB Dressing,Improve [place] w/ LB Dressing Dressing Interventions ADL Training,Use of Assistive Devices,Neuromuscular Re- Education,Therapeutic Exercise ,Balance Work,Modalities, Patient/Caregiver Education Problem Area: Mobility Mobility Outcomes Improve [place] w/ Bed Mobility,Improve [place] w/ Ambulation,Improve [place] w/ Stairs/Curb, Improve [place] w/ Wheelchair Mobility Interventions Therapeutic Exercise, Neuromuscular Re-Ed.,Activity Tolerance Work,Use of Assistive Devices,Patient/ Caregiver Education,Gait Training,W/C Mobility Work Problem Area: Transfers Transfers Outcomes Improve [place] w/ Bed Transfers,Improve [place] w/ Toilet Transfers,Improve [place] w/ Tub/Shower Transfers,Improve [place] w/ Car Transfers Transfers Interventions Transfer Training,Therapeutic Exercise,Neuromuscular Re- Education,Activity Tolerance Work,Use of Assistive Devices, Patient/Caregiver Education Problem Area: Bowel/Bladder Managment Bowel/Bladder Outcomes Continent of Bladder,Remain free of UTI Bowel/Bladder Interventions Bladder Training Program, Patient/Caregiver Education Problem Area: Toileting Toileting Outcomes Improve [place] w/ Toileting Toileting Interventions ADL Training,Balance Work,Use of Assistive Devices,Patient/ Caregiver Education Problem Area: Nutrition Nutrition Outcomes Understand and Comply w/ Diet Nutrition Interventions Patient/Caregiver Education Problem Area: Comprehension Comprehension Outcomes Improve Comprehension Comprehension Interventions Patient/Caregiver Education Problem Area: Expression Expression Outcomes Expression Interventions Problem Area: Problem Solving Problem Solving Outcomes Improve Problem Solving Problem Solving Interventions Safety Education,Patient/ Caregiver Education Problem Area: Memory Memory Outcomes Memory Interventions Problem Area: Pain Management Pain Management Outcomes Demonstrate/Verbalize Pain Strategies Pain Management Interventions Medication Management, Positioning/Turning,Patient/ Caregiver Education Problem Area: Knowledge Deficits Knowledge Deficits Outcomes Demonstrate Ability to Manage Blood Glucose,Verbalize Precautions,Verbalize Understanding of S/S of Stroke Knowledge Deficits Interventions Medication Use Education, Disease Management Education, Safety Education Problem Area: Skin/Tissue Integrity Skin/Tissue Integrity Outcomes Demonstrate Understanding of Pressure Relief Skin/Tissue Integrity Interventions Pressure Relief Instruction, Positioning/Turning Problem Area: Social Interaction Social Interaction Outcomes Social Interaction Interventions Problem Area: Adjustment to Disability Adjustment to Disability Outcomes Adjustment to Disability Interventions Problem Area: Discharge Concerns Discharge Concerns Outcomes Discharge w/ Necessary Equipment,Have Home Health/ Outpatient Services Discharge Concerns Interventions Family/Caregiver Training Problem Area: Community Reintegration Community Reintegration Outcomes Community Reintegration Interventions Problem Area: Home Management Home Management Outcomes Improve [place] w/ Home Management Home Management Interventions Clothing Care,Activity Tolerance Work,Patient/ Caregiver Education Problem Area: Safety Safety Outcomes Provide Safe Environment, Perform Selfcare Safely, Demonstrate Good Safety w/ Transfers/Mobility Safety Interventions Identify Fall Risk,[place] Pt. to Environment,Reduce Environmental Hazards, Implement Mechanical Devices, i.e. Chair Alarm (Post Fall Update),Re-Educate Patient/ Caregiver for Safety (Post Fall Update) Problem Area: Medication Education Medication Education Outcomes Patient/Caregiver will Verbalize Understanding of Medications Medication Education Interventions Explain Administration/Side Effects/Interactions Problem Area: Diabetes Education Diabetes Education Outcomes Demonstrate Knowledge of Resources Availlable in Diabetic Ed. Folder Diabetes Education Interventions Give Pt. Diabetes Education Folder Problem Area: Oxygenation Oxygenation Outcomes Oxygenation Interventions Problem Area: Cardiovascular Cardiovascular Outcomes Cardiovascular Interventions Physician Only Medical Prognosis and Rehabilitation Fair medical prognosis, poorly controlled DM. Good rehab potential. Continue to monitor commorbidities. Monitor for changes in neuro status, afib, htn. Will likely need AFO unless strength improves. Potential (Completed by Physician) This plan of care has been developed based on the findings from the pre- admission assessment, post admission physician evaluation, information gathered from the assessments from all therapy disciplines and other pertinent clinicians. The plan of care has been reviewed and discussed in collaboration with the interdisciplinary team. The plan of care will be reviewed and updated at least weekly.
[2019-05-08] MEDS ORDERED: LANTUS SUB-Q SCH (21:00)
[2019-05-09] MEDS: HumaLOG SUB-Q SCH ×4 (08:41→16:50)
[2019-05-09] MEDS: HALFPRIN EC PO SCH (08:41)
[2019-05-09] MEDS: LOPRESSOR PO SCH (08:41)
[2019-05-09] MEDS: XARELTO PO SCH (08:41)
--- NOTE | 2019-05-09 09:08 | Progress Note ---
Subjective Date of service: 05/09/19 Principal diagnosis: CVA Interval history: 68 yo RHD male who woke up with decreased ability to move left side of body. "He" drove to ER with his as a passenger. After filling out paperwork he worsened and was unable to move the left side. Head CT showed small chronic b/l lacunar infarcts. MRI brain showed small infarct in right posterior corpus stri atal region. Left facial drop now. Denies dysphagia. No aphasia or dysarthria noted. Patient is participating in therapy and making reasonable progress. Taking rest breaks as needed. +BM. Denies pain, palpitations, dyspnea, cough, N/V, or joint pain. Glucose is improving, increase Lantus and monitor. Will start fenofibrate to improve triglycerides - labs reviewed, monitor for myalgias. Vi tals have been stable. Observed with therapy walking with knee brace and qc. May need Knee brace/AFO going forward pending improvement. Noted that LLE was cooler than right. Pulses intact, monitor. Discussed in team conference, making good progress. Quad weakness. Making good progress in OT. No SHOPPER'S AIDE needs. All records, vitals, labs and medications were reviewed. No other issues per patient, nursing or therapy. Objective - Exam Narrative Exam: MUSCULOSKELETAL SPECIALTY EXAM CONSTITUTIONAL: Well developed, well nourished, appropriately groomed. RIGHT hand dominant. RESPIRATORY: Clear to auscultation bilaterally, no increased work of breathing CARDIOVASCULAR: Mild swelling in LUE, mostly at hand. Otherwise, Regular Rate/ Rhythm, no swelling, edema or tenderness in BUE or BLE. BUE warm, LLE cooler than RLE. GI: + bowel sounds, soft, NTTP, nondistended. INTEGUMENTARY: Normal, no lesion, rash, masses or bruising noted in extremities. MUSCULOSKELETAL: BUE and BLE normal without defect, crepitus, subluxation, effusion, arthritic changes or TTP. SA EF WE EE FF FA HF KE ADF EHL APF R 5/5 overall L 3/5 3/5 3/5 4-/5 3/5 3/5 2/5 4-/5 3/5 3/5 3/5 ROM decreased on left Tone decreased on left NEURO: Left facial droop, Intact shoulder shrug on right (decreased on left) Sensation intact in all extremities without extinction. No tremor noted in 4 extremities. Naming and repetition intact. Follows 2 step commands. Aphasia not appreciated Dysarthria not appreciated Dysphagia not appreciated Neglect not appreciated POSTURE and GAIT: Sitting posture fair with some loss of balance to back left. Gait deferred until seen with therapy, is able to industrial organizational psychologist parallel bars with some support. PSYCH: Alert, orientated x3, affect appears euthymic. Insight appears intact. - Constitutional Vitals: Vital Signs - 12hr 05/08/19 05/09/19 05/09/19 22:04 00:14 03:56 Temperature 36.6 C 36.4 C L Pulse Rate 53 L 61 62 Respiratory 18 18 Rate Blood Pressure 119/53 131/63 134/62 O2 Sat by Pulse 95 96 Oximetry 05/09/19 07:54 Temperature 36.5 C Pulse Rate 78 Respiratory 18 Rate Blood Pressure 127/69 O2 Sat by Pulse 97 Oximetry - Allied health notes Allied health notes reviewed: nursing, PT, OT FIMS assessment as documented by PT/OT/ST: Grooming Patient cleans teeth/dentures: Yes Patient reid/brushes hair: No Patient washes, rinses and Yes dries face: Patient washes, rinses and Yes dries hands: Patient shaves: Yes Patient performs (w/ make-up/ 4/5 (80%) shaving): Grooming FIM Score 4. Minimal Assistance (Patient = 75% or more. Needs touching.) Toileting Toileting Device Urinal,Bedside Commode Patient able to: Adjust clothes before,Adjust clothes after Patient able to perform: 2/3 (67%) Toileting FIM Score 3. Moderate Assistance (Patient = 50% or more. Some lifting.) Social interaction/Memory/Problem solving Social Interaction FIM Score 7. Complete [place] (Interacts appropriately. Controls temper.) Memory FIM Score 7. Complete [place] (Remembers people and routines.) Problem Solving FIM Score 7. Complete [place] (Solves complex problems. Self corrects.) Transfers Mode of Locomotion: Wheelchair Bed/Chair/Wheelchair Transfers 4. Minimal Assistance (Patient = 75% or more. FIM Score Needs touching.) Toilet Transfers FIM Score 3. Moderate Assistance (Patient = 50% or more. Some lifting.) Patient transferred to: Shower Shower Transfers FIM Score 3. Moderate Assistance (Patient = 50% or more. Some lifting.) Locomotion- Stairs Stairs FIM Score 0. Activity does not occur Locomotion- walk/wheelchair Most Frequent Mode of Wheelchair Locomotion: Ambulation Distance 15 Walking FIM Score 1. Total Assistance (Pt. < 25%, 2 or more person assist, or <50 ft.) Wheelchair Propulsion Distance 230 Wheelchair FIM Score 5. Supervision (Minimum 150 ft. supv./cues or 50 ft. independently.) Eating Eating FIM Score 7. Complete [place] (Cuts meat, opens containers, regular diet.) Dressing-Upper body Patient retrieves clothing No items: Patient applies/removes UE N/a prosthesis or orthosis: Upper Body Dressing FIM Score 3. Moderate Assistance (Patient = 50% or more) Dressing-lower body Patient retrieves clothing No items: Patient applies/removes LE N/a prosthesis or orthosis: Lower Body Dressing FIM Score 2. Maximal Assistance (Patient = 25% or more) - Labs CBC & Chem 7: 05/06/19 04:07 05/06/19 04:07 Labs: Laboratory Results - last 72 hr 05/06/19 05/06/19 05/06/19 13:02 16:47 22:31 POC Glucose 255 H 236 H 226 H 05/07/19 05/07/19 05/07/19 07:28 11:51 16:40 POC Glucose 230 H 294 H 269 H 05/07/19 05/08/19 05/08/19 21:09 07:17 11:30 POC Glucose 303 H 234 H 332 H 05/08/19 05/08/19 05/09/19 16:45 22:20 03:15 POC Glucose 292 H 213 H 216 H 05/09/19 08:01 POC Glucose 228 H Assessment and Plan -CVA with left nondominant hemiparesis: Secondary stroke prevention. Continue therapy as below. Monitor for changes in neuro. Monitor for post stroke depression and shoulder hand syndrome. Left Arm trough on w/c. -Left foot drop: monitor for need of Left AFO. Knee is also buckling - cont knee brace while awaiting return of quad control/strength. -Paroxysmal Atrial fibrillation: continue xarelto. Monitor. -Poorly controlled Diabetes: continue insulin and monitor with adjustments as needed. Carb controlled diet. A1c 8.4% on 05/04 -Hypertension: continue medications and adjust as needed -Hyperlipidemia: Continue statin. Triglycerides elevated primarily, start fenofibrate and monitor labs -Vit D deficiency: check labs (results pending), continue replacement as needed. -Z73.6 ADL dysfunction: OT will work on improving ability to perform ADLs (including assistive devices) to increase independence and decrease caregiver burden and improve functional transfers and mobility training. -R26.2 Difficulty walking: PT will work on gait training and proper use of assistive devices and advance as appropriate to use of stairs and outside ambulation on uneven surfaces. -R26.81 Unsteadiness on feet: PT will work on improving static and dynamic sitting and standing balance as well as proper use of assistive devices to decrease risk of falls. -R26.89 Abnormality of gait: PT will work to improve safety and efficiency of gait through neuromotor training and gait training along with instruction on proper use of assistive devices. -M62.81 Muscle weakness: PT & OT will work on strengthening exercises to improve functional strength including mixture of closed and open kinetic chain exercise s. -R53.81 Debility: PT & OT will work on improving overall functional status to improve participation with ADLs, mobility and social involvement. -R53.83 Fatigue: PT & OT will work on improving endurance through aerobic exercises and therapeutic activity while monitoring patients tolerance for act ivity and vital signs as needed. DVT ppx: on xarelto Pain: Continue physical modalities in therapy and pain medications as needed to achieve functional pain control. Sleep: Monitor and address as needed. Bowel: Monitor and address as needed. Appetite: Monitor and address as needed. Discharge planning: Pending therapy progress and care plan meeting. Will continue discussion with therapy team, SW, patient and family. Restrictions/ Precautions: Falls WB status: FWB Functional Hx: ADLs: Independent Cognition: Independent Mobility: No AD Barriers to Discharge: Decreased mobility and ability to perform self care, balance deficits, weakness Estimated Length of Stay: 14-21 days Discharge Destination: Home with family
[2019-05-09] MEDS: TRICOR PO SCH (13:48)
[2019-05-10] MEDS: LANTUS SUB-Q SCH ×2 (00:24→22:26)
[2019-05-10] MEDS: HumaLOG SUB-Q SCH ×5 (00:25→22:26)
[2019-05-10] MEDS: LOPRESSOR PO SCH ×3 (00:26→21:33)
[2019-05-10] MEDS: HALFPRIN EC PO SCH (07:55)
[2019-05-10] MEDS: TRICOR PO SCH (07:55)
[2019-05-10] MEDS: XARELTO PO SCH (07:55)
[2019-05-10] MEDS: VITAMIN D2 PO SCH ×2 (08:00→12:59)
[2019-05-10 08:30] LABS: Hematocrit 42.7 % (35.5-45.6); Hemoglobin 14.3 gm/dl (11.8-15.2); Mean Corpuscular HGB Conc 33 % (32-34); Mean Corpuscular Volume 84 fl (84-94); Platelet Count 148 K/mm3 (140-440); Red Blood Count 5.08 M/mm3 (3.65-5.03); Red Cell Distribution Width 13.9 % (13.2-15.2)
--- NOTE | 2019-05-10 14:24 | Progress Note ---
Subjective Date of service: 05/10/19 Principal diagnosis: CVA Interval history: 68 yo RHD male who woke up with decreased ability to move left side of body. "He" drove to ER with his as a passenger. After filling out paperwork he worsened and was unable to move the left side. Head CT showed small chronic b/l lacunar infarcts. MRI brain showed small infarct in right posterior corpus stri atal region. Left facial drop now. Denies dysphagia. No aphasia or dysarthria noted. Patient is participating in therapy and making reasonable progress. Taking rest breaks as needed. +BM. Denies pain, palpitations, dyspnea, cough, N/V, or joint pain. Glucose is improving, increase Lantus and monitor. Will start fenofibrate to improve triglycerides - labs reviewed, monitor for myalgias. Vi tals have been stable. Observed with therapy walking with knee brace and qc. May need Knee brace/AFO going forward pending improvement. Noted that LLE was cooler than right. Pulses intact, monitor. All records, vitals, labs and medications were reviewed. No other issues per patient, nursing or therapy. Objective - Exam Narrative Exam: MUSCULOSKELETAL SPECIALTY EXAM CONSTITUTIONAL: Well developed, well nourished, appropriately groomed. RIGHT hand dominant. RESPIRATORY: Clear to auscultation bilaterally, no increased work of breathing CARDIOVASCULAR: Mild swelling in LUE, mostly at hand. Otherwise, Regular Rate/ Rhythm, no swelling, edema or tenderness in BUE or BLE. BUE warm, LLE noticeably cooler than RLE. GI: + bowel sounds, soft, NTTP, nondistended. INTEGUMENTARY: Normal, no lesion, rash, masses or bruising noted in extremities. MUSCULOSKELETAL: BUE and BLE normal without defect, crepitus, subluxation, effusion, arthritic changes or TTP. SA EF WE EE FF FA HF KE ADF EHL APF R 5/5 overall L 3/5 3/5 3/5 4-/5 3/5 3/5 2/5 4-/5 3/5 3/5 3/5 ROM decreased on left Tone decreased on left NEURO: Left facial droop, Intact shoulder shrug on right (decreased on left) Sensation intact in all extremities without extinction. No tremor noted in 4 extremities. Naming and repetition intact. Follows 2 step commands. Aphasia not appreciated Dysarthria not appreciated Dysphagia not appreciated Neglect not appreciated POSTURE and GAIT: Sitting posture fair with some loss of balance to back left. Gait improved with short steps, some buckling of left knee which is helped by brace. PSYCH: Alert, orientated x3, affect appears euthymic. Insight appears intact. - Constitutional Vitals: Vital Signs - 12hr 05/10/19 05/10/19 05/10/19 04:08 07:44 11:31 Temperature 36.4 C 36.7 C 36.6 C Pulse Rate 57 L 68 63 Respiratory 19 20 18 Rate Blood Pressure 114/57 137/70 129/66 O2 Sat by Pulse 97 95 95 Oximetry - Allied health notes Allied health notes reviewed: nursing, PT, OT FIMS assessment as documented by PT/OT/ST: Grooming Patient cleans teeth/dentures: Yes Patient reid/brushes hair: Yes Patient washes, rinses and Yes dries face: Patient washes, rinses and Yes dries hands: Patient shaves: Yes Patient performs (no make-up/ 4/4 (100%) shaving): Patient performs (w/ make-up/ 4/5 (80%) shaving): Grooming FIM Score 4. Minimal Assistance (Patient = 75% or more. Needs touching.) Toileting Toileting Device Urinal,Commode over Toilet Patient able to: Adjust clothes before,Clean self Patient able to perform: 2/3 (67%) Toileting FIM Score 3. Moderate Assistance (Patient = 50% or more. Some lifting.) Social interaction/Memory/Problem solving Social Interaction FIM Score 7. Complete [place] (Interacts appropriately. Controls temper.) Memory FIM Score 5. Supervision (Needs cueing <10%, stressful/ unfamiliar situations.) Problem Solving FIM Score 7. Complete [place] (Solves complex problems. Self corrects.) Transfers Mode of Locomotion: Wheelchair Bed/Chair/Wheelchair Transfers 5. Supervision (Needs supv. or set-up for FIM Score sliding board, foot rests.) Toilet Transfers FIM Score 3. Moderate Assistance (Patient = 50% or more. Some lifting.) Patient transferred to: Shower Shower Transfers FIM Score 3. Moderate Assistance (Patient = 50% or more. Some lifting.) Locomotion- Stairs Number of Stairs Ascended/ 8 Descended Patient used handrail/support: Yes Stairs FIM Score 2. Maximal Assistance (Patient = 25% or more, 4- 6 stairs.) Locomotion- walk/wheelchair Most Frequent Mode of Wheelchair Locomotion: Ambulation Distance 170 Walking FIM Score 1. Total Assistance (Pt. < 25%, 2 or more person assist, or <50 ft.) Wheelchair Propulsion Distance 250 Wheelchair FIM Score 5. Supervision (Minimum 150 ft. supv./cues or 50 ft. independently.) Eating Eating FIM Score 7. Complete [place] (Cuts meat, opens containers, regular diet.) Dressing-Upper body Patient retrieves clothing No items: Patient applies/removes UE N/a prosthesis or orthosis: Upper Body Dressing FIM Score 3. Moderate Assistance (Patient = 50% or more) Dressing-lower body Patient retrieves clothing No items: Patient applies/removes LE N/a prosthesis or orthosis: Lower Body Dressing FIM Score 3. Moderate Assistance (Patient = 50% or more) - Labs CBC & Chem 7: 05/10/19 07:38 05/06/19 04:07 Labs: Laboratory Results - last 72 hr 05/07/19 05/07/19 05/08/19 16:40 21:09 07:17 WBC RBC Hgb Hct MCV MCH MCHC RDW Plt Count POC Glucose 269 H 303 H 234 H 05/08/19 05/08/19 05/08/19 11:30 16:45 22:20 WBC RBC Hgb Hct MCV MCH MCHC RDW Plt Count POC Glucose 332 H 292 H 213 H 05/09/19 05/09/19 05/09/19 03:15 08:01 12:29 WBC RBC Hgb Hct MCV MCH MCHC RDW Plt Count POC Glucose 216 H 228 H 237 H 05/09/19 05/09/19 05/10/19 16:32 21:04 07:38 WBC 5.6 RBC 5.08 H Hgb 14.3 Hct 42.7 MCV 84 MCH 28 MCHC 33 RDW 13.9 Plt Count 148 POC Glucose 246 H 265 H 05/10/19 05/10/19 07:52 11:39 WBC RBC Hgb Hct MCV MCH MCHC RDW Plt Count POC Glucose 204 H 173 H Assessment and Plan -CVA with left nondominant hemiparesis: Secondary stroke prevention. Continue therapy as below. Monitor for changes in neuro. Monitor for post stroke depression and shoulder hand syndrome. Left Arm trough on w/c. -Left foot drop: monitor for need of Left AFO. Knee is also buckling - cont knee brace while awaiting return of quad control/strength. -Paroxysmal Atrial fibrillation: continue xarelto. Monitor. -Poorly controlled Diabetes: continue insulin and monitor with adjustments as needed. Carb controlled diet. A1c 8.4% on 05/04 -Hypertension: continue medications and adjust as needed -Hyperlipidemia: Continue statin. Triglycerides elevated primarily, start fenofibrate and monitor labs -Vit D deficiency: check labs (results pending), continue replacement as needed. -Z73.6 ADL dysfunction: OT will work on improving ability to perform ADLs (including assistive devices) to increase independence and decrease caregiver burden and improve functional transfers and mobility training. -R26.2 Difficulty walking: PT will work on gait training and proper use of assistive devices and advance as appropriate to use of stairs and outside ambulation on uneven surfaces. -R26.81 Unsteadiness on feet: PT will work on improving static and dynamic sitting and standing balance as well as proper use of assistive devices to decrease risk of falls. -R26.89 Abnormality of gait: PT will work to improve safety and efficiency of gait through neuromotor training and gait training along with instruction on proper use of assistive devices. -M62.81 Muscle weakness: PT & OT will work on strengthening exercises to improve functional strength including mixture of closed and open kinetic chain exercises. -R53.81 Debility: PT & OT will work on improving overall functional status to improve participation with ADLs, mobility and social involvement. -R53.83 Fatigue: PT & OT will work on improving endurance through aerobic exercises and therapeutic activity while monitoring patients tolerance for activity and vital signs as needed. DVT ppx: on xarelto Pain: Continue physical modalities in therapy and pain medications as needed to achieve functional pain control. Sleep: Monitor and address as needed. Bowel: Monitor and address as needed. Appetite: Monitor and address as needed. Discharge planning: Pending therapy progress and care plan meeting. Will continue discussion with therapy team, SW, patient and family. Restrictions/ Precautions: Falls WB status: FWB Functional Hx: ADLs: Independent Cognition: Independent Mobility: No AD Barriers to Discharge: Decreased mobility and ability to perform self care, balance deficits, weakness Estimated Length of Stay: 14-21 days Discharge Destination: Home with family
[2019-05-11] MEDS: HumaLOG SUB-Q SCH ×4 (08:30→22:12)
--- NOTE | 2019-05-11 09:18 | Progress Note ---
Subjective Date of service: 05/11/19 Principal diagnosis: CVA Interval history: 68 yo RHD male who woke up with decreased ability to move left side of body. "He" drove to ER with his as a passenger. After filling out paperwork he worsened and was unable to move the left side. Head CT showed small chronic b/l lacunar infarcts. MRI brain showed small infarct in right posterior corpus stri atal region. Left facial drop now. Denies dysphagia. No aphasia or dysarthria noted. Patient is participating in therapy and making reasonable progress. Taking rest breaks as needed. +BM. Denies pain, palpitations, dyspnea, cough, N/V, or joint pain. Glucose is improving, add low dose AM Lantus and monitor. Fenofibrate added to improve triglycerides - monitor labs and for myalgias. Vitals have been stable. Observed with therapy walking with knee brace, AFO and qc. May need Knee brace/AFO going forward pending improvement. Noted that LLE still cooler than right. Pulses intact, will check arterial doppler today to rule out vascular issue. No other signs of CRPS to go along with the temperature difference. All records, vitals, labs and medications were reviewed. No other issues per patient, nursing or therapy. Objective - Exam Narrative Exam: MUSCULOSKELETAL SPECIALTY EXAM CONSTITUTIONAL: Well developed, well nourished, appropriately groomed. RIGHT hand dominant. RESPIRATORY: Clear to auscultation bilaterally, no increased work of breathing CARDIOVASCULAR: Mild swelling in LUE, mostly at hand. Otherwise, Regular Rate/ Rhythm, no swelling, edema or tenderness in BUE or BLE. BUE warm, LLE noticeably cooler than RLE. GI: + bowel sounds, soft, NTTP, nondistended. INTEGUMENTARY: Normal, no lesion, rash, masses or bruising noted in extremities. MUSCULOSKELETAL: BUE and BLE normal without defect, crepitus, subluxation, effusion, arthritic changes or TTP. SA EF WE EE FF FA HF KE ADF EHL APF R 5/5 overall L 3/5 3/5 3/5 4-/5 3/5 3/5 2/5 4-/5 3/5 3/5 3/5 ROM decreased on left Tone decreased on left NEURO: Left facial droop, Intact shoulder shrug on right (decreased on left) Sensation intact in all extremities without extinction. No tremor noted in 4 extremities. Naming and repetition intact. Follows 2 step commands. Aphasia not appreciated Dysarthria not appreciated Dysphagia not appreciated Neglect not appreciated POSTURE and GAIT: Sitting posture fair with some loss of balance to back left, improving. Gait improved with short steps, utilizing QC, knee brace and AFO. PSYCH: Alert, orientated x3, affect appears euthymic. Insight appears intact. - Constitutional Vitals: Vital Signs - 12hr 05/10/19 05/10/19 05/10/19 21:31 21:33 23:15 Temperature 36.6 C Pulse Rate 64 63 Respiratory 18 Rate Blood Pressure 127/68 127/68 116/56 O2 Sat by Pulse 94 Oximetry 05/11/19 05/11/19 04:19 07:35 Temperature 36.6 C 36.7 C Pulse Rate 74 63 Respiratory 18 18 Rate Blood Pressure 134/70 116/75 O2 Sat by Pulse 96 97 Oximetry - Allied health notes Allied health notes reviewed: nursing, PT, OT FIMS assessment as documented by PT/OT/ST: Grooming Patient cleans teeth/dentures: Yes Patient reid/brushes hair: Yes Patient washes, rinses and Yes dries face: Patient washes, rinses and Yes dries hands: Patient shaves: Yes Patient performs (no make-up/ 4/4 (100%) shaving): Patient performs (w/ make-up/ 4/5 (80%) shaving): Grooming FIM Score 4. Minimal Assistance (Patient = 75% or more. Needs touching.) Toileting Toileting Device Urinal Patient able to: Adjust clothes before Patient able to perform: 2/3 (67%) Toileting FIM Score 3. Moderate Assistance (Patient = 50% or more. Some lifting.) Social interaction/Memory/Problem solving Social Interaction FIM Score 5. Supervision (Needs supv. <10%. Needs encouragement to participate.) Memory FIM Score 5. Supervision (Needs cueing <10%, stressful/ unfamiliar situations.) Problem Solving FIM Score 5. Supervision (Needs cueing <10% to solve routine problems.) Transfers Mode of Locomotion: Wheelchair Bed/Chair/Wheelchair Transfers 5. Supervision (Needs supv. or set-up for FIM Score sliding board, foot rests.) Toilet Transfers FIM Score 3. Moderate Assistance (Patient = 50% or more. Some lifting.) Patient transferred to: Shower Shower Transfers FIM Score 3. Moderate Assistance (Patient = 50% or more. Some lifting.) Locomotion- Stairs Number of Stairs Ascended/ 8 Descended Patient used handrail/support: Yes Stairs FIM Score 2. Maximal Assistance (Patient = 25% or more, 4- 6 stairs.) Locomotion- walk/wheelchair Most Frequent Mode of Wheelchair Locomotion: Ambulation Distance 170 Walking FIM Score 1. Total Assistance (Pt. < 25%, 2 or more person assist, or <50 ft.) Wheelchair Propulsion Distance 250 Wheelchair FIM Score 5. Supervision (Minimum 150 ft. supv./cues or 50 ft. independently.) Eating Eating FIM Score 5. Supervision/Set-Up (Needs help w/ containers, cutting meat, etc.) Dressing-Upper body Patient retrieves clothing No items: Patient applies/removes UE N/a prosthesis or orthosis: Upper Body Dressing FIM Score 3. Moderate Assistance (Patient = 50% or more) Dressing-lower body Patient retrieves clothing No items: Patient applies/removes LE N/a prosthesis or orthosis: Lower Body Dressing FIM Score 3. Moderate Assistance (Patient = 50% or more) - Labs CBC & Chem 7: 05/10/19 07:38 05/06/19 04:07 Labs: Laboratory Results - last 72 hr 05/08/19 05/08/19 05/08/19 11:30 16:45 22:20 WBC RBC Hgb Hct MCV MCH MCHC RDW Plt Count POC Glucose 332 H 292 H 213 H 05/09/19 05/09/19 05/09/19 03:15 08:01 12:29 WBC RBC Hgb Hct MCV MCH MCHC RDW Plt Count POC Glucose 216 H 228 H 237 H 05/09/19 05/09/19 05/10/19 16:32 21:04 07:38 WBC 5.6 RBC 5.08 H Hgb 14.3 Hct 42.7 MCV 84 MCH 28 MCHC 33 RDW 13.9 Plt Count 148 POC Glucose 246 H 265 H 05/10/19 05/10/19 05/10/19 07:52 11:39 16:38 WBC RBC Hgb Hct MCV MCH MCHC RDW Plt Count POC Glucose 204 H 173 H 243 H 05/10/19 05/11/19 21:49 07:42 WBC RBC Hgb Hct MCV MCH MCHC RDW Plt Count POC Glucose 304 H 260 H Assessment and Plan -CVA with left nondominant hemiparesis: Secondary stroke prevention. Continue therapy as below. Monitor for changes in neuro. Monitor for post stroke depression and shoulder hand syndrome. Left Arm trough on w/c. -Left foot drop: using Left AFO. Knee is also buckling - cont knee brace while awaiting return of quad control/strength. -Paroxysmal Atrial fibrillation: continue xarelto. Monitor. -Poorly controlled Diabetes: continue insulin and monitor with adjustments as needed. Carb controlled diet. A1c 8.4% on 05/04 -Hypertension: continue medications and adjust as needed -Hyperlipidemia: Continue statin. Triglycerides elevated primarily, cont fenof ibrate and monitor labs -Vit D deficiency: check labs (results pending), continue replacement as needed. -Z73.6 ADL dysfunction: OT will work on improving ability to perform ADLs (including assistive devices) to increase independence and decrease caregiver burden and improve functional transfers and mobility training. -R26.2 Difficulty walking: PT will work on gait training and proper use of [place] tive devices and advance as appropriate to use of stairs and outside ambulation on uneven surfaces. -R26.81 Unsteadiness on feet: PT will work on improving static and dynamic sitting and standing balance as well as proper use of assistive devices to decrease risk of falls. -R26.89 Abnormality of gait: PT will work to improve safety and efficiency of gait through neuromotor training and gait training along with instruction on proper use of assistive devices. -M62.81 Muscle weakness: PT & OT will work on strengthening exercises to improve functional strength including mixture of closed and open kinetic chain exercises. -R53.81 Debility: PT & OT will work on improving overall functional status to improve participation with ADLs, mobility and social involvement. -R53.83 Fatigue: PT & OT will work on improving endurance through aerobic exercises and therapeutic activity while monitoring patients tolerance for activity and vital signs as needed. Arterial doppler LLE to rule out vascular stenosis. Less likely CRPS (no pain or other changes) but could also be CVA related DVT ppx: on xarelto Pain: Continue physical modalities in therapy and pain medications as needed to achieve functional pain control. Sleep: Monitor and address as needed. Bowel: Monitor and address as needed. Appetite: Monitor and address as needed. Discharge planning: Pending therapy progress and care plan meeting. Will continue discussion with therapy team, SW, patient and family. Restrictions/ Precautions: Falls WB status: FWB Functional Hx: ADLs: Independent Cognition: Independent Mobility: No AD Barriers to Discharge: Decreased mobility and ability to perform self care, balance deficits, weakness Estimated Length of Stay: 14-21 days Discharge Destination: Home with family
[2019-05-11] MEDS: TRICOR PO SCH (11:21)
[2019-05-11] MEDS: LOPRESSOR PO SCH ×3 (11:21→22:11)
[2019-05-11] MEDS: XARELTO PO SCH (11:21)
[2019-05-11] MEDS: HALFPRIN EC PO SCH (11:21)
--- NOTE | 2019-05-11 15:32 | Vascular Lab Report ---
DUPLEX DOPPLER LOWER EXTREMITY ARTERIAL, LEFT INDICATION: Cool LLE compared to RLE, r/o stenosis. TECHNIQUE: Arterial duplex examination of both lower extremities performed using B-mode, color flow and spectral Doppler assessment. FINDINGS: LEFT: Common Femoral Artery: PSV 104 cm/sec. Biphasic waveform. Proximal SFA: PSV 71 cm/sec. Biphasic waveform. Mid SFA: PSV 57 cm/sec. Triphasic waveform. Distal SFA: PSV 57 cm/sec. Biphasic waveform. Popliteal artery: PSV 49 cm/sec. Biphasic waveform. Posterior tibial artery: PSV 49 cm/sec. Monophasic waveform. Dorsalis Pedis Artery: PSV 7 cm/sec. Monophasic waveform. There is severe stenosis versus short segment occlusion of the left mid [place] with distal reconstitutio n. IMPRESSION: 1. Waveforms and velocities as outlined above, consistent with moderate multifocal atherosclerotic di sease. 2. Focal severe stenosis versus short segment occlusion of the left mid [place]. There is distal reconsti tution therefore no complete occlusion. Doppler Waveform: * Triphasic is normal. * Biphasic is abnormal if clear transition from triphasic signal along vascular tree. * Monophasic is abnormal. Signer Name: Edilson Pemberton MD Signed: 05/11/2019 3:27 PM Workstation Name: [id number]
[2019-05-11 16:15] LABS: Hematocrit 43.2 % (35.5-45.6); Hemoglobin 14.9 gm/dl (11.8-15.2); Mean Corpuscular HGB Conc 34 % (32-34); Mean Corpuscular Volume 84 fl (84-94); Platelet Count 154 K/mm3 (140-440); Red Blood Count 5.17 M/mm3 (3.65-5.03); Red Cell Distribution Width 13.6 % (13.2-15.2)
[2019-05-11] MEDS: LANTUS SUB-Q SCH (22:26)
[2019-05-12 08:02] LABS: Hematocrit 45.4 % (35.5-45.6); Hemoglobin 15.2 gm/dl (11.8-15.2); Mean Corpuscular HGB Conc 34 % (32-34); Mean Corpuscular Volume 84 fl (84-94); Platelet Count 143 K/mm3 (140-440); Red Blood Count 5.41 M/mm3 (3.65-5.03); Red Cell Distribution Width 13.9 % (13.2-15.2)
[2019-05-12 08:17] LABS: Alanine Aminotransferase 31 units/L (7-56); Albumin 3.7 g/dL (3.9-5); BUN/Creatinine Ratio 13; Blood Urea Nitrogen 13 mg/dL (9-20); Calcium 10.6 mg/dL (8.4-10.2); Hemolysis Index 28
--- NOTE | 2019-05-12 08:25 | Progress Note ---
Subjective Date of service: 05/12/19 Principal diagnosis: CVA Interval history: 68 yo RHD male who woke up with decreased ability to move left side of body. "He" drove to ER with his as a passenger. After filling out paperwork he worsened and was unable to move the left side. Head CT showed small chronic b/l lacunar infarcts. MRI brain showed small infarct in right posterior corpus stri atal region. Left facial drop now. Denies dysphagia. No aphasia or dysarthria noted. Patient is participating in therapy and making reasonable progress. Taking rest breaks as needed. +BM. Denies pain, palpitations, dyspnea, cough, N/V, or joint pain. Glucose is improving, monitor. Decrteased SSI today. Fenofibrate added to improve triglycerides - monitor labs and for myalgias. Vitals have been stable. Noted that LLE still cooler than right. Doppler does show severe stenosis in [place] with distal reconstitution. Discussed with patient about referral to vascular surgery. Will likely need stent in near future and if [facility] surgeon deems this to be an urgent issue we will need to discharge to acute care side. Left message for Dr Bennett at office. All records, vitals, labs and medications were reviewed. No other issues per patient, nursing or therapy. Objective - Exam Narrative Exam: MUSCULOSKELETAL SPECIALTY EXAM CONSTITUTIONAL: Well developed, well nourished, appropriately groomed. RIGHT hand dominant. RESPIRATORY: Clear to auscultation bilaterally, no increased work of breathing CARDIOVASCULAR: Mild swelling in LUE, mostly at hand. Otherwise, Regular Rate/ Rhythm, no swelling, edema or tenderness in BUE or BLE. BUE warm, LLE noticeably cooler than RLE. GI: + bowel sounds, soft, NTTP, nondistended. INTEGUMENTARY: Normal, no lesion, rash, masses or bruising noted in extremities. MUSCULOSKELETAL: BUE and BLE normal without defect, crepitus, subluxation, effusion, arthritic changes or TTP. SA EF WE EE FF FA HF KE ADF EHL APF R 5/5 overall L 3/5 3/5 3/5 4-/5 3/5 3/5 2/5 4-/5 3/5 3/5 3/5 ROM decreased on left Tone decreased on left NEURO: Left facial droop, Intact shoulder shrug on right (decreased on left) Sensation intact in all extremities without extinction. No tremor noted in 4 extremities. Naming and repetition intact. Follows 2 step commands. Aphasia not appreciated Dysarthria not appreciated Dysphagia not appreciated Neglect not appreciated POSTURE and GAIT: Sitting posture fair with some loss of balance to back left, improving. Gait improved with short steps, utilizing QC, knee brace and AFO. PSYCH: Alert, orientated x3, affect appears euthymic. Insight appears intact. - Constitutional Vitals: Vital Signs - 12hr 05/11/19 05/11/19 05/11/19 20:38 20:39 22:11 Temperature 36.9 C Pulse Rate 77 118 H Respiratory Rate Blood Pressure 104/82 104/82 Blood Pressure [Right] O2 Sat by Pulse 96 94 Oximetry 05/12/19 05/12/19 05/12/19 01:16 01:20 01:27 Temperature 36.7 C Pulse Rate 76 80 60 Respiratory 16 Rate Blood Pressure Blood Pressure 105/54 [Right] O2 Sat by Pulse 95 100 Oximetry 05/12/19 04:43 Temperature 36.4 C L Pulse Rate 65 Respiratory 18 Rate Blood Pressure 109/51 Blood Pressure [Right] O2 Sat by Pulse 93 Oximetry - Allied health notes Allied health notes reviewed: nursing, PT, OT FIMS assessment as documented by PT/OT/ST: Grooming Patient cleans teeth/dentures: Yes Patient reid/brushes hair: Yes Patient washes, rinses and Yes dries face: Patient washes, rinses and Yes dries hands: Patient shaves: Yes Patient performs (no make-up/ 4/4 (100%) shaving): Patient performs (w/ make-up/ 4/5 (80%) shaving): Grooming FIM Score 4. Minimal Assistance (Patient = 75% or more. Needs touching.) Toileting Toileting Device Urinal Patient able to: Adjust clothes before Patient able to perform: 2/3 (67%) Toileting FIM Score 3. Moderate Assistance (Patient = 50% or more. Some lifting.) Social interaction/Memory/Problem solving Social Interaction FIM Score 6. Mod. [place] (Mostly appropriate. May need meds. No supv.) Memory FIM Score 5. Supervision (Needs cueing <10%, stressful/ unfamiliar situations.) Problem Solving FIM Score 4. Minimal Assistance (Solves routine problems 75-90%.) Transfers Mode of Locomotion: Wheelchair Bed/Chair/Wheelchair Transfers 4. Minimal Assistance (Patient = 75% or more. FIM Score Needs touching.) Toilet Transfers FIM Score 3. Moderate Assistance (Patient = 50% or more. Some lifting.) Patient transferred to: Shower Shower Transfers FIM Score 3. Moderate Assistance (Patient = 50% or more. Some lifting.) Locomotion- Stairs Number of Stairs Ascended/ 8 Descended Patient used handrail/support: Yes Stairs FIM Score 2. Maximal Assistance (Patient = 25% or more, 4- 6 stairs.) Locomotion- walk/wheelchair Most Frequent Mode of Wheelchair Locomotion: Ambulation Distance 170 Walking FIM Score 4. Minimal Assistance (Patient = 75% or more. Minimum of 150 ft.) Wheelchair Propulsion Distance 350 Wheelchair FIM Score 6. Modified [place] (Wheels a minimum of 150 ft.) Eating Eating FIM Score 5. Supervision/Set-Up (Needs help w/ containers, cutting meat, etc.) Dressing-Upper body Patient retrieves clothing No items: Patient applies/removes UE N/a prosthesis or orthosis: Upper Body Dressing FIM Score 4. Minimal Assistance (Patient = 75% or more. Needs touching.) Dressing-lower body Patient retrieves clothing No items: Patient applies/removes LE N/a prosthesis or orthosis: Lower Body Dressing FIM Score 3. Moderate Assistance (Patient = 50% or more) - Labs CBC & Chem 7: 05/12/19 07:37 05/12/19 07:37 Labs: Laboratory Results - last 72 hr 05/09/19 05/09/19 05/09/19 12:29 16:32 21:04 WBC RBC Hgb Hct MCV MCH MCHC RDW Plt Count Sodium Potassium Chloride Carbon Dioxide Anion Gap BUN Creatinine Estimated GFR BUN/Creatinine Ratio Glucose POC Glucose 237 H 246 H 265 H Calcium Total Bilirubin AST ALT Alkaline Phosphatase Total Protein Albumin Albumin/Globulin Ratio 05/10/19 05/10/19 05/10/19 07:38 07:52 11:39 WBC 5.6 RBC 5.08 H Hgb 14.3 Hct 42.7 MCV 84 MCH 28 MCHC 33 RDW 13.9 Plt Count 148 Sodium Potassium Chloride Carbon Dioxide Anion Gap BUN Creatinine Estimated GFR BUN/Creatinine Ratio Glucose POC Glucose 204 H 173 H Calcium Total Bilirubin AST ALT Alkaline Phosphatase Total Protein Albumin Albumin/Globulin Ratio 05/10/19 05/10/19 05/11/19 16:38 21:49 07:42 WBC RBC Hgb Hct MCV MCH MCHC RDW Plt Count Sodium Potassium Chloride Carbon Dioxide Anion Gap BUN Creatinine Estimated GFR BUN/Creatinine Ratio Glucose POC Glucose 243 H 304 H 260 H Calcium Total Bilirubin AST ALT Alkaline Phosphatase Total Protein Albumin Albumin/Globulin Ratio 05/11/19 05/11/19 05/11/19 11:19 15:46 16:36 WBC 6.6 RBC 5.17 H Hgb 14.9 Hct 43.2 MCV 84 MCH 29 MCHC 34 RDW 13.6 Plt Count 154 Sodium Potassium Chloride Carbon Dioxide Anion Gap BUN Creatinine Estimated GFR BUN/Creatinine Ratio Glucose POC Glucose 246 H 271 H Calcium Total Bilirubin AST ALT Alkaline Phosphatase Total Protein Albumin Albumin/Globulin Ratio 05/11/19 05/12/19 05/12/19 21:49 07:37 07:37 WBC 5.0 RBC 5.41 H Hgb 15.2 Hct 45.4 MCV 84 MCH 28 MCHC 34 RDW 13.9 Plt Count 143 Sodium 140 Potassium 4.0 Chloride 105.6 Carbon Dioxide 24 Anion Gap 14 BUN 13 Creatinine 1.0 Estimated GFR > 60 BUN/Creatinine Ratio 13 Glucose 166 H POC Glucose 178 H Calcium 10.6 H Total Bilirubin 0.60 AST 21 ALT 31 Alkaline Phosphatase 90 Total Protein 7.2 Albumin 3.7 L Albumin/Globulin Ratio 1.1 - Imaging and cardiology Other: report reviewed, image reviewed (Art Duplex - Vasc surg consulted) Assessment and Plan Arterial doppler LLE showed severe stenosis in [place] with reconstitution distally. Dr Bennett (vasc surg) consulted. IF we need surgical intervention, will need to discharge to acute care. -CVA with left nondominant hemiparesis: Secondary stroke prevention. Continue therapy as below. Monitor for changes in neuro. Monitor for post stroke depression and shoulder hand syndrome. Left Arm trough on w/c. -Left foot drop: using Left AFO. Knee is also buckling - cont knee brace while awaiting return of quad control/strength. -Paroxysmal Atrial fibrillation: continue xarelto. Monitor. -Poorly controlled Diabetes: continue insulin and monitor with adjustments as needed. Carb controlled diet. A1c 8.4% on 05/04 -Hypertension: continue medications and adjust as needed -Hyperlipidemia: Continue statin. Triglycerides elevated primarily, cont fe nofibrate and monitor labs -Vit D deficiency: check labs (results pending), continue replacement as needed. -Z73.6 ADL dysfunction: OT will work on improving ability to perform ADLs (including assistive devices) to increase independence and decrease caregiver burden and improve functional transfers and mobility training. -R26.2 Difficulty walking: PT will work on gait training and proper use of as sistive devices and advance as appropriate to use of stairs and outside ambulation on uneven surfaces. -R26.81 Unsteadiness on feet: PT will work on improving static and dynamic sitting and standing balance as well as proper use of assistive devices to decrease risk of falls. -R26.89 Abnormality of gait: PT will work to improve safety and efficiency of gait through neuromotor training and gait training along with instruction on proper use of assistive devices. -M62.81 Muscle weakness: PT & OT will work on strengthening exercises to improve functional strength including mixture of closed and open kinetic chain exercises. -R53.81 Debility: PT & OT will work on improving overall functional status to improve participation with ADLs, mobility and social involvement. -R53.83 Fatigue: PT & OT will work on improving endurance through aerobic exercises and therapeutic activity while monitoring patients tolerance for activity and vital signs as needed. DVT ppx: on xarelto Pain: Continue physical modalities in therapy and pain medications as needed to achieve functional pain control. Sleep: Monitor and address as needed. Bowel: Monitor and address as needed. Appetite: Monitor and address as needed. Discharge planning: Pending therapy progress and care plan meeting. Will continue discussion with therapy team, SW, patient and family. Restrictions/ Precautions: Falls WB status: FWB Functional Hx: ADLs: Independent Cognition: Independent Mobility: No AD Barriers to Discharge: Decreased mobility and ability to perform self care, balance deficits, weakness Estimated Length of Stay: 14-21 days Discharge Destination: Home with family
[2019-05-12] MEDS: LOPRESSOR PO SCH ×2 (11:26→22:30)
[2019-05-12] MEDS: HALFPRIN EC PO SCH (11:27)
[2019-05-12] MEDS: TRICOR PO SCH (11:27)
[2019-05-12] MEDS: XARELTO PO SCH (11:27)
[2019-05-12] MEDS: LANTUS SUB-Q SCH ×2 (11:29→22:30)
[2019-05-12] MEDS: HumaLOG SUB-Q SCH ×4 (11:30→22:34)
--- NOTE | 2019-05-12 12:03 | Consultation ---
History of Present Illness - Reason for Consult Consult date: 05/12/19 left MEAGHAN occlusion - History of Present Illness Patient presents with a history of left-sided stroke with persistent although improving left facial droop, left upper and lower extremity weakness. Additionally, the patient has some degree of left foot drop. On exam, the patient is noted to be asymmetrically cooler on the left with nonpalpable distal pulses. An ultrasound was then performed which demonstrates occlusion in the anterior tibial artery. Prior to the patient's stroke, the patient ambulated without difficulty with no claudication. Past History Past Medical History: atrial fib, diabetes, hypertension, hyperlipidemia, other (nephrolithiasis) Past Surgical History: Other (lithotripsy, heart cath w/o stent) Social history: , lives with family (single level, 4 DREW, Independent, retired), full code. denies: smoking, alcohol abuse (occasional use), prescription drug abuse, IV drug use Family history: diabetes, hypertension Medications and Allergies Allergies Allergy/AdvReac Type Severity Reaction Status Date / Time No Known Allergies Allergy Unverified 10/25/13 17:12 Home Medications Medication Instructions Recorded Confirmed Last Taken Type AtorvaSTATin [Lipitor] 20 mg PO DAILY 05/03/19 05/11/19 Unknown History Ergocalciferol (Vitamin D2) 50,000 units PO QWEEK 05/03/19 05/11/19 Unknown History Glimepiride [Amaryl] 2 mg PO QAM 05/03/19 05/11/19 Unknown History Insulin Aspart 20 units SQ ACHS 05/03/19 05/11/19 Unknown History Insulin Glargine 55 units SQ QHS 05/03/19 05/11/19 Unknown History Lisinopril 5 mg PO DAILY 05/03/19 05/11/19 Unknown History Rivaroxaban 20 mg PO DAILY 05/03/19 05/11/19 1 Day Ago History ~05/02/19 Sildenafil 100 mg PO QWEEK PRN 05/03/19 05/11/19 Unknown History Aspirin EC 81 mg PO QDAY #30 tablet 05/05/19 05/11/19 Unknown Rx Active Meds: Active Medications Acetaminophen (Tylenol) 650 mg PO Q4H PRN PRN Reason: Pain MILD(1-3)/Fever >100.5/GOEL Acetaminophen/Hydrocodone Bitart (Onida 5/325) 1 each PO Q6H PRN PRN Reason: Pain, Moderate (4-6) Al Hydrox/Mg Hydrox/Simethicone (Alum-Mag Hydrox-Simeth [id number]/5ml) 30 ml PO Q4H PRN PRN Reason: Indigestion Aspirin (Halfprin Ec) 81 mg PO QDAY [facility] Last Admin: 05/12/19 11:27 Dose: 81 mg Documented by: Atorvastatin Calcium (Lipitor) 40 mg PO QHS [facility] Last Admin: 05/11/19 22:11 Dose: 40 mg Documented by: Bisacodyl (Dulcolax) 10 mg OR QDAY PRN PRN Reason: Constipation Dextrose (D50w (25gm) Syringe) 50 ml IV PRN PRN PRN Reason: Hypoglycemia Ergocalciferol (Vitamin D2) 50,000 unit PO We [facility] Last Admin: 05/10/19 12:59 Dose: Not Given Documented by: Fenofibrate (Tricor) 48 mg PO QDAY [facility] Last Admin: 05/12/19 11:27 Dose: 48 mg Documented by: Insulin Glargine (Lantus) 10 units SUB-Q QAMDIAB [facility] Last Admin: 05/12/19 11:29 Dose: 10 units Documented by: Insulin Glargine (Lantus) 30 units SUB-Q [facility]SS[facility] Insulin Human Lispro (Humalog) 0 unit SUB-Q [facility]; Protocol Last Admin: 05/12/19 11:30 Dose: 2 unit Documented by: Metoprolol Tartrate (Lopressor) 25 mg PO BID [facility] Last Admin: 05/12/19 11:26 Dose: 25 mg Documented by: Ondansetron HCl (Zofran Odt) 4 mg PO Q8H PRN PRN Reason: Nausea And Vomiting Polyethylene Glycol (Miralax 3350) 17 gm PO QDAY PRN PRN Reason: Constipation Rivaroxaban (Xarelto) 20 mg PO QDDIAB [facility]; Protocol Last Admin: 05/12/19 11:27 Dose: 20 mg Documented by: Review of Systems All systems: negative Exam - Constitutional Vitals: Temp Pulse Resp BP Pulse Ox 98.0 F 74 18 124/79 96 05/12/19 08:15 05/12/19 11:26 05/12/19 08:15 05/12/19 11:26 05/12/19 08:15 General appearance: Present: no acute distress - EENT ENT: hearing intact - Neck Neck: Present: supple - Respiratory Respiratory effort: normal - Extremities Extremities: abnormal (absent DP and PT pulses) - Abdominal General gastrointestinal: Present: deferred Male genitourinary: Present: deferred - Rectal Rectal Exam: deferred - Musculoskeletal Musculoskeletal: left sided weakness - Psychiatric Psychiatric: appropriate mood/affect, cooperative Results - Labs CBC & Chem 7: 05/12/19 07:37 05/12/19 07:37 Labs: Abnormal lab results 05/11/19 05/11/19 05/11/19 Range/Units 15:46 16:36 21:49 RBC 5.17 H (3.65-5.03) M/mm3 Glucose (75-100) mg/dL POC Glucose 271 H 178 H (70-105) Calcium (8.4-10.2) mg/dL Albumin (3.9-5) g/dL 05/12/19 05/12/19 05/12/19 Range/Units 07:37 07:37 09:06 RBC 5.41 H (3.65-5.03) M/mm3 Glucose 166 H (75-100) mg/dL POC Glucose 201 H (70-105) Calcium 10.6 H (8.4-10.2) mg/dL Albumin 3.7 L (3.9-5) g/dL - Imaging and Cardiology Venous US: image reviewed Assessment and Plan Patient with anterior tibial artery occlusion. He is currently undergoing rehabilitation following his stroke affecting the left side of his body. Patient may ultimately require revascularization of his anterior tibial artery however, this is not urgent in nature. Would recommend that the patient continue his rehabilitation and follow up with us as an outpatient after he has completed his inpatient rehabilitation.
[2019-05-13 07:09] LABS: Alanine Aminotransferase 29 units/L (7-56); BUN/Creatinine Ratio 13; Blood Urea Nitrogen 14 mg/dL (9-20); Calcium 10.2 mg/dL (8.4-10.2); Hemolysis Index 1
[2019-05-13] MEDS: XARELTO PO SCH (08:11)
[2019-05-13] MEDS: HALFPRIN EC PO SCH (08:11)
[2019-05-13] MEDS: TRICOR PO SCH (08:11)
[2019-05-13] MEDS: LOPRESSOR PO SCH ×2 (08:11→21:37)
[2019-05-13] MEDS: LANTUS SUB-Q SCH ×2 (08:15→21:36)
[2019-05-13] MEDS: HumaLOG SUB-Q SCH ×4 (08:17→21:55)
[2019-05-13] MEDS ORDERED: K-DUR PO ONE ×2 (09:00→13:00)
[2019-05-14 08:06] LABS: Alanine Aminotransferase 25 units/L (7-56); Albumin 3.7 g/dL (3.9-5); BUN/Creatinine Ratio 12; Blood Urea Nitrogen 12 mg/dL (9-20); Calcium 10.4 mg/dL (8.4-10.2); Hemolysis Index 7
[2019-05-14] MEDS: TRICOR PO SCH (08:51)
[2019-05-14] MEDS: XARELTO PO SCH (08:51)
[2019-05-14] MEDS: HALFPRIN EC PO SCH (08:52)
[2019-05-14] MEDS: LOPRESSOR PO SCH ×2 (08:52→21:06)
[2019-05-14] MEDS: HumaLOG SUB-Q SCH ×4 (08:52→21:38)
[2019-05-14] MEDS: LANTUS SUB-Q SCH ×2 (08:53→21:39)
[2019-05-15] MEDS: LANTUS SUB-Q SCH ×2 (08:06→21:52)
[2019-05-15] MEDS: HumaLOG SUB-Q SCH ×4 (08:07→21:52)
[2019-05-15] MEDS: LOPRESSOR PO SCH ×2 (08:13→21:35)
--- NOTE | 2019-05-15 09:27 | Progress Note ---
Subjective Date of service: 05/15/19 Principal diagnosis: CVA Interval history: 68 yo RHD male who woke up with decreased ability to move left side of body. "He" drove to ER with his as a passenger. After filling out paperwork he worsened and was unable to move the left side. Head CT showed small chronic b/l lacunar infarcts. MRI brain showed small infarct in right posterior corpus stri atal region. Left facial drop now. Denies dysphagia. No aphasia or dysarthria noted. Patient is participating in therapy and making reasonable progress. Taking rest breaks as needed. +BM. Denies pain, palpitations, dyspnea, cough, N/V, or joint pain. Glucose is improving, increase Lantus and monitor. Vitals have been stable. Noted that LLE still cooler than right. Appreciate recs of Dr Bennett. All records, vitals, labs and medications were reviewed. No other issues per patient, nursing or therapy. Objective - Exam Narrative Exam: MUSCULOSKELETAL SPECIALTY EXAM CONSTITUTIONAL: Well developed, well nourished, appropriately groomed. RIGHT hand dominant. RESPIRATORY: Clear to auscultation bilaterally, no increased work of breathing CARDIOVASCULAR: Regular Rate/ Rhythm, no swelling, edema or tenderness in BUE or BLE. BUE warm, LLE noticeably cooler than RLE. GI: + bowel sounds, soft, NTTP, nondistended. INTEGUMENTARY: Normal, no lesion, rash, masses or bruising noted in extremities. MUSCULOSKELETAL: BUE and BLE normal without defect, crepitus, subluxation, effusion, arthritic changes or TTP. SA EF WE EE FF FA HF KE ADF EHL APF R 5/5 overall L 3/5 3/5 3/5 4-/5 3/5 3/5 2/5 4-/5 3/5 3/5 3/5 ROM decreased on left Tone decreased on left NEURO: Left facial droop, Intact shoulder shrug on right (decreased on left) Sensation intact in all extremities without extinction. No tremor noted in 4 extremities. Naming and repetition intact. Follows 2 step commands. Aphasia not appreciated Dysarthria not appreciated Dysphagia not appreciated Neglect not appreciated POSTURE and GAIT: Sitting posture fair with some loss of balance to back left, improving. Gait imp roved with short steps, utilizing QC, knee brace and AFO, able to negotiate steps. PSYCH: Alert, orientated x3, affect appears euthymic. Insight appears intact. - Constitutional Vitals: Vital Signs - 12hr 05/14/19 05/15/19 05/15/19 23:47 00:00 04:58 Temperature 36.6 C 36.7 C Pulse Rate 48 L Respiratory 20 20 Rate Blood Pressure 114/57 141/72 O2 Sat by Pulse 95 Oximetry 05/15/19 07:43 Temperature 36.7 C Pulse Rate 93 H Respiratory 18 Rate Blood Pressure 92/61 O2 Sat by Pulse 94 Oximetry - Allied health notes Allied health notes reviewed: nursing, PT, OT FIMS assessment as documented by PT/OT/ST: Grooming Patient cleans teeth/dentures: Yes Patient reid/brushes hair: Yes Patient washes, rinses and Yes dries face: Patient washes, rinses and Yes dries hands: Patient shaves: No Patient applies make-up: No Patient performs (no make-up/ 02/02 (100%) shaving): Patient performs (w/ make-up/ / (80%) shaving): Grooming FIM Score 5. Supervision (Chloride applies toothpaste or opens containers.) Toileting Toileting Device Urinal,Commode over Toilet Patient able to: Adjust clothes before,Clean self Patient able to perform: 3/3 (100%) Toileting FIM Score 4. Minimal Assistance (Patient = 75% or more. Needs touching.) Social interaction/Memory/Problem solving Social Interaction FIM Score 6. Mod. [place] (Mostly appropriate. May need meds. No supv.) Memory FIM Score 7. Complete [place] (Remembers people and routines.) Problem Solving FIM Score 6. Mod. [place] (Mild difficulty or needs more time w/ complex.) Transfers Mode of Locomotion: Wheelchair Bed/Chair/Wheelchair Transfers 5. Supervision (Needs supv. or set-up for FIM Score sliding board, foot rests.) Toilet Transfers FIM Score 3. Moderate Assistance (Patient = 50% or more. Some lifting.) Patient transferred to: Shower Shower Transfers FIM Score 3. Moderate Assistance (Patient = 50% or more. Some lifting.) Locomotion- Stairs Number of Stairs Ascended/ 12 Descended Patient used handrail/support: Yes Stairs FIM Score 4. Minimal Assistance (Patient = 75% or more, touching. 12-14 stairs.) Locomotion- walk/wheelchair Most Frequent Mode of Wheelchair Locomotion: Ambulation Distance 170 Walking FIM Score 4. Minimal Assistance (Patient = 75% or more. Minimum of 150 ft.) Wheelchair Propulsion Distance 350 Wheelchair FIM Score 6. Modified [place] (Wheels a minimum of 150 ft.) Eating Eating FIM Score 5. Supervision/Set-Up (Needs help w/ containers, cutting meat, etc.) Dressing-Upper body Patient retrieves clothing Yes items: Patient applies/removes UE N/a prosthesis or orthosis: Upper Body Dressing FIM Score 5. Supv./Set-Up (Chloride sets out clothes or applies pros./orth.) Dressing-lower body Patient retrieves clothing Yes items: Patient applies/removes LE N/a prosthesis or orthosis: Lower Body Dressing FIM Score 5. Supv./Set-Up (Chloride sets out clothes or applies pros./orth.) - Labs CBC & Chem 7: 05/12/19 07:37 05/14/19 06:48 Labs: Laboratory Results - last 72 hr 05/12/19 05/12/19 05/12/19 12:03 16:38 20:35 Sodium Potassium Chloride Carbon Dioxide Anion Gap BUN Creatinine Estimated GFR BUN/Creatinine Ratio Glucose POC Glucose 225 H 271 H 197 H Calcium Total Bilirubin AST ALT Alkaline Phosphatase Total Protein Albumin Albumin/Globulin Ratio 05/13/19 05/13/19 05/13/19 06:06 07:35 11:32 Sodium 143 Potassium 3.4 L Chloride 105.9 Carbon Dioxide 28 Anion Gap 13 BUN 14 Creatinine 1.1 Estimated GFR > 60 BUN/Creatinine Ratio 13 Glucose 195 H POC Glucose 196 H 288 H Calcium 10.2 Total Bilirubin 0.40 AST 17 ALT 29 Alkaline Phosphatase 92 Total Protein 6.9 Albumin 4.0 Albumin/Globulin Ratio 1.4 05/13/19 05/13/19 05/14/19 16:08 20:51 06:48 Sodium 143 Potassium 4.1 D Chloride 108.2 H Carbon Dioxide 24 Anion Gap 15 BUN 12 Creatinine 1.0 Estimated GFR > 60 BUN/Creatinine Ratio 12 Glucose 176 H POC Glucose 233 H 224 H Calcium 10.4 H Total Bilirubin 0.60 AST 15 ALT 25 Alkaline Phosphatase 86 Total Protein 6.9 Albumin 3.7 L Albumin/Globulin Ratio 1.2 05/14/19 05/14/19 05/14/19 07:20 11:27 16:12 Sodium Potassium Chloride Carbon Dioxide Anion Gap BUN Creatinine Estimated GFR BUN/Creatinine Ratio Glucose POC Glucose 182 H 275 H 204 H Calcium Total Bilirubin AST ALT Alkaline Phosphatase Total Protein Albumin Albumin/Globulin Ratio 05/14/19 05/15/19 21:20 07:50 Sodium Potassium Chloride Carbon Dioxide Anion Gap BUN Creatinine Estimated GFR BUN/Creatinine Ratio Glucose POC Glucose 267 H 220 H Calcium Total Bilirubin AST ALT Alkaline Phosphatase Total Protein Albumin Albumin/Globulin Ratio Assessment and Plan -CVA with left nondominant hemiparesis: Secondary stroke prevention. Continue therapy as below. Monitor for changes in neuro. Monitor for post stroke depression and shoulder hand syndrome. Left Arm trough on w/c. -Left foot drop: using Left AFO. Knee is also buckling - cont knee brace while awaiting return of quad control/strength. -Paroxysmal Atrial fibrillation: continue xarelto. Monitor. -Poorly controlled Diabetes: continue insulin and monitor with adjustments as needed. Carb controlled diet. A1c 8.4% on 05/04 -Hypertension: continue medications and adjust as needed -Hyperlipidemia: Continue statin. Triglycerides elevated primarily, cont fenofibrate and monitor labs -Vit D deficiency: check labs (results pending), continue replacement as needed. -Z73.6 ADL dysfunction: OT will work on improving ability to perform ADLs (including assistive devices) to increase independence and decrease caregiver burden and improve functional transfers and mobility training. -R26.2 Difficulty walking: PT will work on gait training and proper use of assistive devices and advance as appropriate to use of stairs and outside ambulation on uneven surfaces. -R26.81 Unsteadiness on feet: PT will work on improving static and dynamic sitting and standing balance as well as proper use of assistive devices to decrease risk of falls. -R26.89 Abnormality of gait: PT will work to improve safety and efficiency of gait through neuromotor training and gait training along with instruction on proper use of assistive devices. -M62.81 Muscle weakness: PT & OT will work on strengthening exercises to improve functional strength including mixture of closed and open kinetic chain exercises. -R53.81 Debility: PT & OT will work on improving overall functional status to improve participation with ADLs, mobility and social involvement. -R53.83 Fatigue: PT & OT will work on improving endurance through aerobic ex ercises and therapeutic activity while monitoring patients tolerance for activity and vital signs as needed. Arterial doppler LLE showed severe stenosis in MEAGHAN with reconstitution distally. Dr Bennett (vasc surg) consulted and recommended outpatient follow up for revascularization DVT ppx: on xarelto Pain: Continue physical modalities in therapy and pain medications as needed to achieve functional pain control. Sleep: Monitor and address as needed. Bowel: Monitor and address as needed. Appetite: Monitor and address as needed. Discharge planning: Pending therapy progress and care plan meeting. Will continue discussion with therapy team, SW, patient and family. Restrictions/ Precautions: Falls WB status: FWB Functional Hx: ADLs: Independent Cognition: Independent Mobility: No AD Barriers to Discharge: Decreased mobility and ability to perform self care, balance deficits, weakness Estimated Length of Stay: 14-21 days Discharge Destination: Home with family
[2019-05-15] MEDS: TRICOR PO SCH (11:05)
[2019-05-15] MEDS: HALFPRIN EC PO SCH (11:06)
[2019-05-15] MEDS: XARELTO PO SCH (11:06)
[2019-05-16] MEDS: XARELTO PO SCH (08:56)
[2019-05-16] MEDS: HALFPRIN EC PO SCH (08:56)
[2019-05-16] MEDS: TRICOR PO SCH (08:56)
[2019-05-16] MEDS: LOPRESSOR PO SCH ×2 (08:56→21:22)
[2019-05-16] MEDS: LANTUS SUB-Q SCH ×2 (08:57→21:22)
[2019-05-16] MEDS: HumaLOG SUB-Q SCH ×4 (09:01→21:31)
--- NOTE | 2019-05-16 13:49 | Progress Note ---
Subjective Date of service: 05/16/19 Principal diagnosis: CVA Interval history: 68 yo RHD male who woke up with decreased ability to move left side of body. "He" drove to ER with his as a passenger. After filling out paperwork he worsened and was unable to move the left side. Head CT showed small chronic b/l lacunar infarcts. MRI brain showed small infarct in right posterior corpus stri atal region. Left facial drop now. Denies dysphagia. No aphasia or dysarthria noted. Patient is participating in therapy and making reasonable progress. Taking rest breaks as needed. +BM. Denies pain, palpitations, dyspnea, cough, N/V, or joint pain. Glucose looks good but patient did not eat today. Discussed that he has to eat in order for me to adjust insulin, he stated he was afraid to eat b/c his sugar was getting higher. I explained we are covering with SSI. He agreed to eat normally, increase Lantus and monitor. Vitals have been stable. Noted that LLE still cooler than right. Discussed in team conference. Making good progress. LLE still weak and poorly controlled. Will order brace from [employer]. All records, vitals, labs and medications were reviewed. No other issues per patient, nursing or therapy. Objective - Exam Narrative Exam: MUSCULOSKELETAL SPECIALTY EXAM CONSTITUTIONAL: Well developed, well nourished, appropriately groomed. RIGHT hand dominant. RESPIRATORY: Clear to auscultation bilaterally, no increased work of breathing CARDIOVASCULAR: Regular Rate/ Rhythm, no swelling, edema or tenderness in BUE or BLE. BUE warm, LLE noticeably cooler than RLE. GI: + bowel sounds, soft, NTTP, nondistended. INTEGUMENTARY: Normal, no lesion, rash, masses or bruising noted in extremities. MUSCULOSKELETAL: BUE and BLE normal without defect, crepitus, subluxation, effusion, arthritic changes or TTP. SA EF WE EE FF FA HF KE ADF EHL APF R / overall L 3/5 3/5 3/5 4-/5 3/5 3/5 2/5 4-/5 3/5 3/5 3/5 ROM decreased on left Tone decreased on left NEURO: Left facial droop, Intact shoulder shrug on right (decreased on left) Sensation intact in all extremities without extinction. No tremor noted in 4 extremities. Naming and repetition intact. Follows 2 step commands. Aphasia not appreciated Dysarthria not appreciated Dysphagia not appreciated Neglect not appreciated POSTURE and GAIT: Sitting posture fair with some loss of balance to back left, improving. Gait improved with short steps, utilizing QC, knee brace and AFO, able to negotiate steps, still has knee instability. PSYCH: Alert, orientated x3, affect appears euthymic. Insight appears intact. - Constitutional Vitals: Vital Signs - 12hr 05/16/19 05/16/19 05/16/19 04:45 08:42 12:11 Temperature 36.4 C L 36.6 C 36.5 C Pulse Rate 68 78 74 Respiratory 20 18 18 Rate Blood Pressure 114/63 Blood Pressure 116/76 115/72 [Right] O2 Sat by Pulse 91 97 95 Oximetry - Allied health notes Allied health notes reviewed: nursing, PT, OT FIMS assessment as documented by PT/OT/ST: Grooming Patient cleans teeth/dentures: Yes Patient reid/brushes hair: Yes Patient washes, rinses and Yes dries face: Patient washes, rinses and Yes dries hands: Patient shaves: No Patient applies make-up: No Patient performs (no make-up/ / (100%) shaving): Patient performs (w/ make-up/ / (80%) shaving): Grooming FIM Score 5. Supervision ([place] applies toothpaste or opens containers.) Toileting Toileting Device Urinal,Commode over Toilet Patient able to: Adjust clothes before,Clean self,Adjust clothes after Patient able to perform: 2/3 (67%) Toileting FIM Score 4. Minimal Assistance (Patient = 75% or more. Needs touching.) Social interaction/Memory/Problem solving Social Interaction FIM Score 6. Mod. [place] (Mostly appropriate. May need meds. No supv.) Memory FIM Score 6. Modified [place](Mild difficulty remembering people/routines.) Problem Solving FIM Score 6. Mod. [place] (Mild difficulty or needs more time w/ complex.) Transfers Mode of Locomotion: Wheelchair Bed/Chair/Wheelchair Transfers 6. Modified [place] (Uses device, sliding FIM Score board, prosth./orth.) Toilet Transfers FIM Score 4. Minimal Assistance (Patient = 75% or more. Needs touching.) Patient transferred to: Shower Shower Transfers FIM Score 4. Minimal Assistance (Patient = 75% or more. Needs touching.) Locomotion- Stairs Device used on Stairs Handrail/s Number of Stairs Ascended/ 12 Descended Patient used handrail/support: Yes Stairs FIM Score 4. Minimal Assistance (Patient = 75% or more, touching. 12-14 stairs.) Locomotion- walk/wheelchair Most Frequent Mode of Wheelchair Locomotion: Ambulation Distance 350 Walking FIM Score 4. Minimal Assistance (Patient = 75% or more. Minimum of 150 ft.) Wheelchair Propulsion Distance 350 Wheelchair FIM Score 6. Modified [place] (Wheels a minimum of 150 ft.) Eating Eating FIM Score 6. Modified [place] (Special consistency or uses device.) Dressing-Upper body Patient retrieves clothing Yes items: Patient applies/removes UE N/a prosthesis or orthosis: Upper Body Dressing FIM Score 5. Supv./Set-Up ([place] sets out clothes or applies pros./orth.) Dressing-lower body Patient retrieves clothing Yes items: Patient applies/removes LE N/a prosthesis or orthosis: Lower Body Dressing FIM Score 4. Minimal Assistance (Patient = 75% or more. Needs touching.) - Labs CBC & Chem 7: 05/12/19 07:37 05/14/19 06:48 Labs: Laboratory Results - last 72 hr 05/13/19 05/13/19 05/14/19 16:08 20:51 06:48 Sodium 143 Potassium 4.1 D Chloride 108.2 H Carbon Dioxide 24 Anion Gap 15 BUN 12 Creatinine 1.0 Estimated GFR > 60 BUN/Creatinine Ratio 12 Glucose 176 H POC Glucose 233 H 224 H Calcium 10.4 H Total Bilirubin 0.60 AST 15 ALT 25 Alkaline Phosphatase 86 Total Protein 6.9 Albumin 3.7 L Albumin/Globulin Ratio 1.2 05/14/19 05/14/19 05/14/19 07:20 11:27 16:12 Sodium Potassium Chloride Carbon Dioxide Anion Gap BUN Creatinine Estimated GFR BUN/Creatinine Ratio Glucose POC Glucose 182 H 275 H 204 H Calcium Total Bilirubin AST ALT Alkaline Phosphatase Total Protein Albumin Albumin/Globulin Ratio 05/14/19 05/15/19 05/15/19 21:20 07:50 12:49 Sodium Potassium Chloride Carbon Dioxide Anion Gap BUN Creatinine Estimated GFR BUN/Creatinine Ratio Glucose POC Glucose 267 H 220 H 267 H Calcium Total Bilirubin AST ALT Alkaline Phosphatase Total Protein Albumin Albumin/Globulin Ratio 05/15/19 05/15/19 05/16/19 16:55 21:15 08:47 Sodium Potassium Chloride Carbon Dioxide Anion Gap BUN Creatinine Estimated GFR BUN/Creatinine Ratio Glucose POC Glucose 300 H 269 H 161 H Calcium Total Bilirubin AST ALT Alkaline Phosphatase Total Protein Albumin Albumin/Globulin Ratio 05/16/19 12:20 Sodium Potassium Chloride Carbon Dioxide Anion Gap BUN Creatinine Estimated GFR BUN/Creatinine Ratio Glucose POC Glucose 147 H Calcium Total Bilirubin AST ALT Alkaline Phosphatase Total Protein Albumin Albumin/Globulin Ratio Assessment and Plan -CVA with left nondominant hemiparesis: Secondary stroke prevention. Continue therapy as below. Monitor for changes in neuro. Monitor for post stroke depression and shoulder hand syndrome. Left Arm trough on w/c. -Left foot drop: using Left AFO. Knee is also buckling - cont knee brace while awaiting return of quad control/strength. -Paroxysmal Atrial fibrillation: continue xarelto. Monitor. -Poorly controlled Diabetes: continue insulin and monitor with adjustments as needed. Discussed need to eat. Carb controlled diet. A1c 8.4% on 05/04 -Hypertension: continue medications and adjust as needed -Hyperlipidemia: Continue statin. Triglycerides elevated primarily, cont fenofibrate and monitor labs -Vit D deficiency: check labs (results pending), continue replacement as needed. -Z73.6 ADL dysfunction: OT will work on improving ability to perform ADLs (including assistive devices) to increase independence and decrease caregiver burden and improve functional transfers and mobility training. -R26.2 Difficulty walking: PT will work on gait training and proper use of assistive devices and advance as appropriate to use of stairs and outside ambulation on uneven surfaces. -R26.81 Unsteadiness on feet: PT will work on improving static and dynamic sitting and standing balance as well as proper use of assistive devices to decrease risk of falls. -R26.89 Abnormality of gait: PT will work to improve safety and efficiency of gait through neuromotor training and gait training along with instruction on proper use of assistive devices. -M62.81 Muscle weakness: PT & OT will work on strengthening exercises to improve functional strength including mixture of closed and open kinetic chain exercises. -R53.81 Debility: PT & OT will work on improving overall functional status to improve participation with ADLs, mobility and social involvement. -R53.83 Fatigue: PT & OT will work on improving endurance through aerobic exercises and therapeutic activity while monitoring patients tolerance for activity and vital signs as needed. Arterial doppler LLE showed severe stenosis in [place] with reconstitution distally. Dr Bennett (vasc surg) consulted and recommended outpatient follow up for revascularization DVT ppx: on xarelto Pain: Continue physical modalities in therapy and pain medications as needed to achieve functional pain control. Sleep: Monitor and address as needed. Bowel: Monitor and address as needed. Appetite: Monitor and address as needed. Discharge planning: Pending therapy progress and care plan meeting. Will continue discussion with therapy team, SW, patient and family. Restrictions/ Precautions: Falls WB status: FWB Functional Hx: ADLs: Independent Cognition: Independent Mobility: No AD Barriers to Discharge: Decreased mobility and ability to perform self care, balance deficits, weakness Estimated Length of Stay: 14-21 days Discharge Destination: Home with family
[2019-05-17] MEDS: XARELTO PO SCH (07:29)
[2019-05-17] MEDS: TRICOR PO SCH (07:29)
[2019-05-17] MEDS: VITAMIN D2 PO SCH ×2 (07:30→11:26)
[2019-05-17] MEDS: LOPRESSOR PO SCH ×2 (07:30→21:36)
[2019-05-17] MEDS: LANTUS SUB-Q SCH ×2 (07:30→21:41)
[2019-05-17] MEDS: HALFPRIN EC PO SCH (07:30)
[2019-05-17] MEDS: HumaLOG SUB-Q SCH ×3 (07:35→17:04)
--- NOTE | 2019-05-17 17:05 | Progress Note ---
Subjective Date of service: 05/17/19 Principal diagnosis: CVA Interval history: 68 yo RHD male who woke up with decreased ability to move left side of body. "He" drove to ER with his as a passenger. After filling out paperwork he worsened and was unable to move the left side. Head CT showed small chronic b/l lacunar infarcts. MRI brain showed small infarct in right posterior corpus stri atal region. Left facial drop now. Denies dysphagia. No aphasia or dysarthria noted. Patient is participating in therapy and making reasonable progress. Taking rest breaks as needed. +BM. Denies pain, palpitations, dyspnea, cough, N/V, or joint pain. Glucose improved. Again, discussed that he has to eat in order for me to adjust insulin. Vitals have been stable. Noted that LLE still cooler than right. Recheck labs in AM. All records, vitals, labs and medications were reviewed. No other issues per patient, nursing or therapy. Objective - Exam Narrative Exam: MUSCULOSKELETAL SPECIALTY EXAM CONSTITUTIONAL: Well developed, well nourished, appropriately groomed. RIGHT hand dominant. RESPIRATORY: Clear to auscultation bilaterally, no increased work of breathing CARDIOVASCULAR: Regular Rate/ Rhythm, no swelling, edema or tenderness in BUE or BLE. BUE warm, LLE noticeably cooler than RLE. GI: + bowel sounds, soft, NTTP, nondistended. INTEGUMENTARY: Normal, no lesion, rash, masses or bruising noted in extremities. MUSCULOSKELETAL: BUE and BLE normal without defect, crepitus, subluxation, effusion, arthritic changes or TTP. SA EF WE EE FF FA HF KE ADF EHL APF R 5/5 overall L 3/5 3/5 3/5 4-/5 3/5 3/5 2/5 4-/5 3/5 3/5 3/5 ROM decreased on left Tone decreased on left NEURO: Left facial droop, Intact shoulder shrug on right (decreased on left) Sensation intact in all extremities without extinction. No tremor noted in 4 extremities. Naming and repetition intact. Follows 2 step commands. Aphasia not appreciated Dysarthria not appreciated Dysphagia not appreciated Neglect not appreciated POSTURE and GAIT: Sitting posture fair with some loss of balance to back left, improving. Gait improved with short steps, utilizing QC, knee brace and AFO, able to negotiate steps, still has knee instability and weakness. PSYCH: Alert, orientated x3, affect appears euthymic. Insight appears intact. - Constitutional Vitals: Vital Signs - 12hr 05/17/19 05/17/19 05/17/19 05:19 07:06 12:04 Temperature 36.5 C 36.6 C 36.7 C Pulse Rate 73 65 69 Respiratory 20 19 15 Rate Blood Pressure 132/79 114/74 114/72 O2 Sat by Pulse 97 95 95 Oximetry 05/17/19 15:52 Temperature 36.8 C Pulse Rate 74 Respiratory 22 Rate Blood Pressure 116/63 O2 Sat by Pulse 93 Oximetry - Allied health notes Allied health notes reviewed: nursing, PT, OT FIMS assessment as documented by PT/OT/ST: Grooming Patient cleans teeth/dentures: Yes Patient reid/brushes hair: Yes Patient washes, rinses and Yes dries face: Patient washes, rinses and Yes dries hands: Patient shaves: No Patient applies make-up: No Patient performs (no make-up/ / (100%) shaving): Patient performs (w/ make-up/ /5 (80%) shaving): Grooming FIM Score 5. Supervision ([place] applies toothpaste or opens containers.) Toileting Toileting Device Urinal,Commode over Toilet Patient able to: Adjust clothes before,Clean self,Adjust clothes after Patient able to perform: 2/3 (67%) Toileting FIM Score 4. Minimal Assistance (Patient = 75% or more. Needs touching.) Social interaction/Memory/Problem solving Social Interaction FIM Score 5. Supervision (Needs supv. <10%. Needs encouragement to participate.) Memory FIM Score 5. Supervision (Needs cueing <10%, stressful/ unfamiliar situations.) Problem Solving FIM Score 5. Supervision (Needs cueing <10% to solve routine problems.) Transfers Mode of Locomotion: Wheelchair Bed/Chair/Wheelchair Transfers 5. Supervision (Needs supv. or set-up for FIM Score sliding board, foot rests.) Toilet Transfers FIM Score 4. Minimal Assistance (Patient = 75% or more. Needs touching.) Patient transferred to: Shower Shower Transfers FIM Score 4. Minimal Assistance (Patient = 75% or more. Needs touching.) Locomotion- Stairs Device used on Stairs Handrail/s Number of Stairs Ascended/ 12 Descended Patient used handrail/support: Yes Stairs FIM Score 4. Minimal Assistance (Patient = 75% or more, touching. 12-14 stairs.) Locomotion- walk/wheelchair Most Frequent Mode of Wheelchair Locomotion: Ambulation Distance 160 Walking FIM Score 4. Minimal Assistance (Patient = 75% or more. Minimum of 150 ft.) Wheelchair Propulsion Distance 350 Wheelchair FIM Score 6. Modified [place] (Wheels a minimum of 150 ft.) Eating Eating FIM Score 6. Modified [place] (Special consistency or uses device.) Dressing-Upper body Patient retrieves clothing Yes items: Patient applies/removes UE N/a prosthesis or orthosis: Upper Body Dressing FIM Score 5. Supv./Set-Up ([place] sets out clothes or applies pros./orth.) Dressing-lower body Patient retrieves clothing Yes items: Patient applies/removes LE N/a prosthesis or orthosis: Lower Body Dressing FIM Score 4. Minimal Assistance (Patient = 75% or more. Needs touching.) - Labs CBC & Chem 7: 05/12/19 07:37 05/14/19 06:48 Labs: Laboratory Results - last 72 hr 05/14/19 05/15/19 05/15/19 21:20 07:50 12:49 POC Glucose 267 H 220 H 267 H 05/15/19 05/15/19 05/16/19 16:55 21:15 08:47 POC Glucose 300 H 269 H 161 H 05/16/19 05/16/19 05/16/19 12:20 16:15 21:28 POC Glucose 147 H 207 H 283 H 05/17/19 05/17/19 05/17/19 07:12 11:55 16:10 POC Glucose 124 H 171 H 232 H Assessment and Plan -CVA with left nondominant hemiparesis: Secondary stroke prevention. Continue therapy as below. Monitor for changes in neuro. Monitor for post stroke depression and shoulder hand syndrome. Left Arm trough on w/c. -Left foot drop: using Left AFO. Knee is also buckling - cont knee brace while awaiting return of quad control/strength. -Paroxysmal Atrial fibrillation: continue xarelto. Monitor. -Poorly controlled Diabetes: continue insulin and monitor with adjustments as needed. improving. Carb controlled diet. A1c 8.4% on 05/04 -Hypertension: continue medications and adjust as needed -Hyperlipidemia: Continue statin. Triglycerides elevated primarily, cont fenofibrate and monitor labs -Vit D deficiency: check labs (results pending still), continue replacement as needed. -Z73.6 ADL dysfunction: OT will work on improving ability to perform ADLs (including assistive devices) to increase independence and decrease caregiver burden and improve functional transfers and mobility training. -R26.2 Difficulty walking: PT will work on gait training and proper use of assistive devices and advance as appropriate to use of stairs and outside ambulation on uneven surfaces. -R26.81 Unsteadiness on feet: PT will work on improving static and dynamic sitting and standing balance as well as proper use of assistive devices to decrease risk of falls. -R26.89 Abnormality of gait: PT will work to improve safety and efficiency of gait through neuromotor training and gait training along with instruction on proper use of assistive devices. -M62.81 Muscle weakness: PT & OT will work on strengthening exercises to improve functional strength including mixture of closed and open kinetic chain exercises. -R53.81 Debility: PT & OT will work on improving overall functional status to improve participation with ADLs, mobility and social involvement. -R53.83 Fatigue: PT & OT will work on improving endurance through aerobic exercises and therapeutic activity while monitoring patients tolerance for activity and vital signs as needed. Arterial doppler LLE showed severe stenosis in [place] with reconstitution distally. Dr Bennett (vasc surg) consulted and recommended outpatient follow up for revascularization DVT ppx: on xarelto Pain: Continue physical modalities in therapy and pain medications as needed to achieve functional pain control. Sleep: Monitor and address as needed. Bowel: Monitor and address as needed. Appetite: Monitor and address as needed. Discharge planning: Pending therapy progress and care plan meeting. Will continue discussion with therapy team, SW, patient and family. Restrictions/ Precautions: Falls WB status: FWB Functional Hx: ADLs: Independent Cognition: Independent Mobility: No AD Barriers to Discharge: Decreased mobility and ability to perform self care, balance deficits, weakness Estimated Length of Stay: 14-21 days Discharge Destination: Home with family
[2019-05-17] MEDS: MIRALAX 3350 PO PRN (21:36)
[2019-05-18] MEDS: HumaLOG SUB-Q SCH ×5 (01:05→23:06)
[2019-05-18 08:09] LABS: Hematocrit 45.8 % (35.5-45.6); Hemoglobin 15.3 gm/dl (11.8-15.2); Mean Corpuscular HGB Conc 33 % (32-34); Mean Corpuscular Volume 85 fl (84-94); Platelet Count 148 K/mm3 (140-440); Red Cell Distribution Width 13.8 % (13.2-15.2)
[2019-05-18] MEDS: LANTUS SUB-Q SCH ×2 (08:15→22:02)
[2019-05-18 08:27] LABS: BUN/Creatinine Ratio 12; Blood Urea Nitrogen 12 mg/dL (9-20); Calcium 10.9 mg/dL (8.4-10.2); Hemolysis Index 3
--- NOTE | 2019-05-18 10:34 | Progress Note ---
Subjective Date of service: 05/18/19 Principal diagnosis: CVA Interval history: 68 yo RHD male who woke up with decreased ability to move left side of body. "He" drove to ER with his as a passenger. After filling out paperwork he worsened and was unable to move the left side. Head CT showed small chronic b/l lacunar infarcts. MRI brain showed small infarct in right posterior corpus stri atal region. Left facial drop now. Denies dysphagia. No aphasia or dysarthria noted. Patient is participating in therapy and making reasonable progress. Taking rest breaks as needed. Hard stool this AM. Reminded him that suppository is available and explained how it works. +BM. Denies pain, palpitations, dyspnea, cough, N/V, or joint pain. Glucose improved, a little low this AM. Again, discussed that he has to eat in order for me to adjust insulin. Vitals have been stable. Noted that LLE still cooler than right. All records, vitals, labs and medications were reviewed. No other issues per patient, nursing or therapy. Objective - Exam Narrative Exam: MUSCULOSKELETAL SPECIALTY EXAM CONSTITUTIONAL: Well developed, well nourished, appropriately groomed. RIGHT hand dominant. RESPIRATORY: Clear to auscultation bilaterally, no increased work of breathing CARDIOVASCULAR: Regular Rate/ Rhythm, no swelling, edema or tenderness in BUE or BLE. BUE warm, LLE noticeably cooler than RLE. GI: + bowel sounds, soft, NTTP, nondistended. INTEGUMENTARY: Normal, no lesion, rash, masses or bruising noted in extremities. MUSCULOSKELETAL: BUE and BLE normal without defect, crepitus, subluxation, effusion, arthritic changes or TTP. SA EF WE EE FF FA HF KE ADF EHL APF R 5/5 overall L 3/5 3/5 3/5 4-/5 3/5 3/5 2/5 4-/5 3/5 3/5 3/5 ROM decreased on left Tone decreased on left NEURO: Left facial droop, Intact shoulder shrug on right (decreased on left) Sensation intact in all extremities without extinction. No tremor noted in 4 extremities. Naming and repetition intact. Follows 2 step commands. Aphasia not appreciated Dysarthria not appreciated Dysphagia not appreciated Neglect not appreciated POSTURE and GAIT: Sitting posture fair with some loss of balance to back left, improving. Gait improved with short steps, utilizing QC, knee brace and AFO, able to negotiate steps, still has knee instability and weakness. PSYCH: Alert, orientated x3, affect appears euthymic. Insight appears intact. - Constitutional Vitals: Vital Signs - 12hr 05/18/19 05/18/19 05/18/19 00:01 04:47 07:43 Temperature 36.9 C 36.5 C Pulse Rate 71 Respiratory 18 22 Rate Blood Pressure 103/54 127/75 132/78 O2 Sat by Pulse 95 Oximetry 05/18/19 07:44 Temperature 36.6 C Pulse Rate 70 Respiratory 18 Rate Blood Pressure O2 Sat by Pulse 96 Oximetry - Allied health notes Allied health notes reviewed: nursing, PT, OT FIMS assessment as documented by PT/OT/ST: Grooming Patient cleans teeth/dentures: Yes Patient reid/brushes hair: Yes Patient washes, rinses and Yes dries face: Patient washes, rinses and Yes dries hands: Patient shaves: No Patient applies make-up: No Patient performs (no make-up/ / (100%) shaving): Patient performs (w/ make-up/ 4/5 (80%) shaving): Grooming FIM Score 5. Supervision ([place] applies toothpaste or opens containers.) Toileting Toileting Device Urinal,Commode over Toilet Patient able to: Adjust clothes before,Clean self,Adjust clothes after Patient able to perform: 2/3 (67%) Toileting FIM Score 4. Minimal Assistance (Patient = 75% or more. Needs touching.) Social interaction/Memory/Problem solving Social Interaction FIM Score 5. Supervision (Needs supv. <10%. Needs encouragement to participate.) Memory FIM Score 5. Supervision (Needs cueing <10%, stressful/ unfamiliar situations.) Problem Solving FIM Score 5. Supervision (Needs cueing <10% to solve routine problems.) Transfers Mode of Locomotion: Wheelchair Bed/Chair/Wheelchair Transfers 5. Supervision (Needs supv. or set-up for FIM Score sliding board, foot rests.) Toilet Transfers FIM Score 4. Minimal Assistance (Patient = 75% or more. Needs touching.) Patient transferred to: Shower Shower Transfers FIM Score 4. Minimal Assistance (Patient = 75% or more. Needs touching.) Locomotion- Stairs Device used on Stairs Handrail/s Number of Stairs Ascended/ 12 Descended Patient used handrail/support: Yes Stairs FIM Score 4. Minimal Assistance (Patient = 75% or more, touching. 12-14 stairs.) Locomotion- walk/wheelchair Most Frequent Mode of Wheelchair Locomotion: Ambulation Distance 160 Walking FIM Score 4. Minimal Assistance (Patient = 75% or more. Minimum of 150 ft.) Wheelchair Propulsion Distance 350 Wheelchair FIM Score 6. Modified [place] (Wheels a minimum of 150 ft.) Eating Eating FIM Score 6. Modified [place] (Special consistency or uses device.) Dressing-Upper body Patient retrieves clothing Yes items: Patient applies/removes UE N/a prosthesis or orthosis: Upper Body Dressing FIM Score 5. Supv./Set-Up ([place] sets out clothes or applies pros./orth.) Dressing-lower body Patient retrieves clothing Yes items: Patient applies/removes LE N/a prosthesis or orthosis: Lower Body Dressing FIM Score 4. Minimal Assistance (Patient = 75% or more. Needs touching.) - Labs CBC & Chem 7: 05/18/19 07:30 05/18/19 07:30 Labs: Laboratory Results - last 72 hr 05/15/19 05/15/19 05/15/19 12:49 16:55 21:15 WBC RBC Hgb Hct MCV MCH MCHC RDW Plt Count Sodium Potassium Chloride Carbon Dioxide Anion Gap BUN Creatinine Estimated GFR BUN/Creatinine Ratio Glucose POC Glucose 267 H 300 H 269 H Calcium 05/16/19 05/16/19 05/16/19 08:47 12:20 16:15 WBC RBC Hgb Hct MCV MCH MCHC RDW Plt Count Sodium Potassium Chloride Carbon Dioxide Anion Gap BUN Creatinine Estimated GFR BUN/Creatinine Ratio Glucose POC Glucose 161 H 147 H 207 H Calcium 05/16/19 05/17/19 05/17/19 21:28 07:12 11:55 WBC RBC Hgb Hct MCV MCH MCHC RDW Plt Count Sodium Potassium Chloride Carbon Dioxide Anion Gap BUN Creatinine Estimated GFR BUN/Creatinine Ratio Glucose POC Glucose 283 H 124 H 171 H Calcium 05/17/19 05/17/19 05/18/19 16:10 22:11 07:30 WBC 5.0 RBC 5.40 H Hgb 15.3 H Hct 45.8 H MCV 85 MCH 28 MCHC 33 RDW 13.8 Plt Count 148 Sodium Potassium Chloride Carbon Dioxide Anion Gap BUN Creatinine Estimated GFR BUN/Creatinine Ratio Glucose POC Glucose 232 H 259 H Calcium 05/18/19 05/18/19 07:30 07:46 WBC RBC Hgb Hct MCV MCH MCHC RDW Plt Count Sodium 143 Potassium 4.0 Chloride 104.0 Carbon Dioxide 29 Anion Gap 14 BUN 12 Creatinine 1.0 Estimated GFR > 60 BUN/Creatinine Ratio 12 Glucose 85 POC Glucose 81 Calcium 10.9 H Assessment and Plan -CVA with left nondominant hemiparesis: Secondary stroke prevention. Continue therapy as below. Monitor for changes in neuro. Monitor for post stroke depression and shoulder hand syndrome. Left Arm trough on w/c. -Left foot drop: using Left AFO. Knee is also buckling - cont knee brace while awaiting return of quad control/strength. -Paroxysmal Atrial fibrillation: continue xarelto. Monitor. -Poorly controlled Diabetes: continue insulin and monitor with adjustments as needed. improving. Carb controlled diet. A1c 8.4% on 05/04 -Hypertension: continue medications and adjust as needed -Hyperlipidemia: Continue statin. Triglycerides elevated primarily, cont fenofibrate and monitor labs -Vit D deficiency: check labs (not is computer but lab confirmed mid-50s), continue replacement as needed. -Constipation: Miralax and bisacodyl supp available, monitor -Z73.6 ADL dysfunction: OT will work on improving ability to perform ADLs (including assistive devices) to increase independence and decrease caregiver burden and improve functional transfers and mobility training. -R26.2 Difficulty walking: PT will work on gait training and proper use of assistive devices and advance as appropriate to use of stairs and outside ambulation on uneven surfaces. -R26.81 Unsteadiness on feet: PT will work on improving static and dynamic sitting and standing balance as well as proper use of assistive devices to decrease risk of falls. -R26.89 Abnormality of gait: PT will work to improve safety and efficiency of gait through neuromotor training and gait training along with instruction on proper use of assistive devices. -M62.81 Muscle weakness: PT & OT will work on strengthening exercises to improve functional strength including mixture of closed and open kinetic chain exer cises. -R53.81 Debility: PT & OT will work on improving overall functional status to improve participation with ADLs, mobility and social involvement. -R53.83 Fatigue: PT & OT will work on improving endurance through aerobic exercises and therapeutic activity while monitoring patients tolerance for activity and vital signs as needed. Arterial doppler LLE showed severe stenosis in [place] with reconstitution distally. Dr Bennett (vasc surg) consulted and recommended outpatient follow up for revasc ularization DVT ppx: on xarelto Pain: Continue physical modalities in therapy and pain medications as needed to achieve functional pain control. Sleep: Monitor and address as needed. Bowel: Monitor and address as needed. Appetite: Monitor and address as needed. Discharge planning: Pending therapy progress and care plan meeting. Will continue discussion with therapy team, SW, patient and family. Restrictions/ Precautions: Falls WB status: FWB Functional Hx: ADLs: Independent Cognition: Independent Mobility: No AD Barriers to Discharge: Decreased mobility and ability to perform self care, balance deficits, weakness Estimated Length of Stay: 14-21 days Discharge Destination: Home with family
[2019-05-18] MEDS: TRICOR PO SCH (12:19)
[2019-05-18] MEDS: LOPRESSOR PO SCH ×2 (12:19→22:03)
[2019-05-18] MEDS: HALFPRIN EC PO SCH (12:19)
[2019-05-18] MEDS: XARELTO PO SCH (12:20)
[2019-05-18] MEDS: MIRALAX 3350 PO PRN (17:00)
[2019-05-19] MEDS: TRICOR PO SCH (08:20)
[2019-05-19] MEDS: HALFPRIN EC PO SCH (08:20)
[2019-05-19] MEDS: XARELTO PO SCH (08:20)
[2019-05-19] MEDS: HumaLOG SUB-Q SCH ×4 (08:22→22:07)
[2019-05-19] MEDS: LANTUS SUB-Q SCH ×2 (08:23→21:33)
[2019-05-19] MEDS: LOPRESSOR PO SCH ×2 (08:24→21:37)
--- NOTE | 2019-05-19 09:21 | Progress Note ---
Subjective Date of service: 05/19/19 Principal diagnosis: CVA Interval history: 68 yo RHD male who woke up with decreased ability to move left side of body. "He" drove to ER with his as a passenger. After filling out paperwork he worsened and was unable to move the left side. Head CT showed small chronic b/l lacunar infarcts. MRI brain showed small infarct in right posterior corpus stri atal region. Left facial drop now. Denies dysphagia. No aphasia or dysarthria noted. Patient is participating in therapy and making reasonable progress. Taking rest breaks as needed. Hard stool this AM. Reminded him that suppository is available and explained how it works. +BM. Denies pain, palpitations, dyspnea, cough, N/V, or joint pain. Glucose improved. PO intake improved and seems to be stable. Vitals have been stable, BP trending slightly lower. Noted that LLE still cooler than right. Noted that he is having emotional issues at times. Discussed PSD with him and advantage of SSRI. He states he does not feel depressed and this is his norm and refused SSRI. Will continue to monitor and revisit. Would likely benefit from SSRI for short term once he is agreeable. Tolerating additional tricor without issue. All records, vitals, labs and medications were reviewed. No other issues per patient, nursing or therapy. Objective - Exam Narrative Exam: MUSCULOSKELETAL SPECIALTY EXAM CONSTITUTIONAL: Well developed, well nourished, appropriately groomed. RIGHT hand dominant. RESPIRATORY: Clear to auscultation bilaterally, no increased work of breathing CARDIOVASCULAR: Regular Rate/ Rhythm, no swelling, edema or tenderness in BUE or BLE. BUE warm, LLE noticeably cooler than RLE. GI: + bowel sounds, soft, NTTP, nondistended. INTEGUMENTARY: Normal, no lesion, rash, masses or bruising noted in extremities. MUSCULOSKELETAL: BUE and BLE normal without defect, crepitus, subluxation, effusion, arthritic changes or TTP. SA EF WE EE FF FA HF KE ADF EHL APF R 5/5 overall L 3/5 3/5 3/5 4-/5 3/5 3/5 2/5 4-/5 3/5 3/5 3/5 ROM decreased on left Tone decreased on left NEURO: Left facial droop, Intact shoulder shrug on right (decreased on left) Sensation intact in all extremities without extinction. No tremor noted in 4 extremities. Naming and repetition intact. Follows 2 step commands. Aphasia not appreciated Dysarthria not appreciated Dysphagia not appreciated Neglect not appreciated POSTURE and GAIT: Sitting posture fair with some loss of balance to back left, improving. Gait improved with short steps, utilizing QC, knee brace and AFO, able to negotiate steps, still has knee instability and weakness. PSYCH: Alert, orientated x3, affect mixed, tearful at times but appropriate. Insight appears intact. - Constitutional Vitals: Vital Signs - 12hr 05/19/19 05/19/19 05/19/19 04:38 07:50 08:00 Temperature 36.7 C 36.6 C Pulse Rate 76 72 74 Respiratory 17 18 Rate Blood Pressure 116/69 Blood Pressure 104/69 [Right] O2 Sat by Pulse 96 97 Oximetry 05/19/19 08:24 Temperature Pulse Rate Respiratory Rate Blood Pressure 104/69 Blood Pressure [Right] O2 Sat by Pulse Oximetry - Allied health notes Allied health notes reviewed: nursing, PT, OT FIMS assessment as documented by PT/OT/ST: Grooming Patient cleans teeth/dentures: Yes Patient reid/brushes hair: Yes Patient washes, rinses and Yes dries face: Patient washes, rinses and Yes dries hands: Patient shaves: No Patient applies make-up: No Patient performs (no make-up/ 4/4 (100%) shaving): Patient performs (w/ make-up/ 4/5 (80%) shaving): Grooming FIM Score 5. Supervision ([place] applies toothpaste or opens containers.) Toileting Toileting Device Urinal,Commode over Toilet Patient able to: Adjust clothes before,Clean self,Adjust clothes after Patient able to perform: 2/3 (67%) Toileting FIM Score 4. Minimal Assistance (Patient = 75% or more. Needs touching.) Social interaction/Memory/Problem solving Social Interaction FIM Score 5. Supervision (Needs supv. <10%. Needs encouragement to participate.) Memory FIM Score 5. Supervision (Needs cueing <10%, stressful/ unfamiliar situations.) Problem Solving FIM Score 5. Supervision (Needs cueing <10% to solve routine problems.) Transfers Mode of Locomotion: Wheelchair Bed/Chair/Wheelchair Transfers 6. Modified [place] (Uses device, sliding FIM Score board, prosth./orth.) Toilet Transfers FIM Score 4. Minimal Assistance (Patient = 75% or more. Needs touching.) Patient transferred to: Shower Shower Transfers FIM Score 4. Minimal Assistance (Patient = 75% or more. Needs touching.) Locomotion- Stairs Device used on Stairs Handrail/s Number of Stairs Ascended/ 12 Descended Patient used handrail/support: Yes Stairs FIM Score 4. Minimal Assistance (Patient = 75% or more, touching. 12-14 stairs.) Locomotion- walk/wheelchair Most Frequent Mode of Wheelchair Locomotion: Ambulation Distance 170 Walking FIM Score 4. Minimal Assistance (Patient = 75% or more. Minimum of 150 ft.) Wheelchair Propulsion Distance 350 Wheelchair FIM Score 6. Modified [place] (Wheels a minimum of 150 ft.) Eating Eating FIM Score 6. Modified [place] (Special consistency or uses device.) Dressing-Upper body Patient retrieves clothing Yes items: Patient applies/removes UE N/a prosthesis or orthosis: Upper Body Dressing FIM Score 5. Supv./Set-Up ([place] sets out clothes or applies pros./orth.) Dressing-lower body Patient retrieves clothing Yes items: Patient applies/removes LE N/a prosthesis or orthosis: Lower Body Dressing FIM Score 4. Minimal Assistance (Patient = 75% or more. Needs touching.) - Labs CBC & Chem 7: 05/18/19 07:30 05/18/19 07:30 Labs: Laboratory Results - last 72 hr 05/16/19 05/16/19 05/16/19 08:47 12:20 16:15 WBC RBC Hgb Hct MCV MCH MCHC RDW Plt Count Sodium Potassium Chloride Carbon Dioxide Anion Gap BUN Creatinine Estimated GFR BUN/Creatinine Ratio Glucose POC Glucose 161 H 147 H 207 H Calcium 05/16/19 05/17/19 05/17/19 21:28 07:12 11:55 WBC RBC Hgb Hct MCV MCH MCHC RDW Plt Count Sodium Potassium Chloride Carbon Dioxide Anion Gap BUN Creatinine Estimated GFR BUN/Creatinine Ratio Glucose POC Glucose 283 H 124 H 171 H Calcium 05/17/19 05/17/19 05/18/19 16:10 22:11 07:30 WBC 5.0 RBC 5.40 H Hgb 15.3 H Hct 45.8 H MCV 85 MCH 28 MCHC 33 RDW 13.8 Plt Count 148 Sodium Potassium Chloride Carbon Dioxide Anion Gap BUN Creatinine Estimated GFR BUN/Creatinine Ratio Glucose POC Glucose 232 H 259 H Calcium 05/18/19 05/18/19 05/18/19 07:30 07:46 11:42 WBC RBC Hgb Hct MCV MCH MCHC RDW Plt Count Sodium 143 Potassium 4.0 Chloride 104.0 Carbon Dioxide 29 Anion Gap 14 BUN 12 Creatinine 1.0 Estimated GFR > 60 BUN/Creatinine Ratio 12 Glucose 85 POC Glucose 81 208 H Calcium 10.9 H 05/18/19 05/18/19 05/19/19 16:25 21:18 07:55 WBC RBC Hgb Hct MCV MCH MCHC RDW Plt Count Sodium Potassium Chloride Carbon Dioxide Anion Gap BUN Creatinine Estimated GFR BUN/Creatinine Ratio Glucose POC Glucose 206 H 99 105 Calcium Assessment and Plan -CVA with left nondominant hemiparesis: Secondary stroke prevention. Continue therapy as below. Monitor for changes in neuro. Monitor for post stroke depression and shoulder hand syndrome. Left Arm trough on w/c. Will continue to encourage consideration of SSRI. -Left foot drop: using Left AFO. Knee is also buckling - cont knee brace while awaiting return of quad control/strength. -Paroxysmal Atrial fibrillation: continue xarelto. Monitor. -Poorly controlled Diabetes: continue insulin and monitor with adjustments as needed. improving. Carb controlled diet. A1c 8.4% on 05/04 -Hypertension: continue medications and adjust as needed -Hyperlipidemia: Continue statin. Triglycerides elevated primarily, cont fenofibrate and monitor labs -Vit D deficiency: check labs (not in computer but lab confirmed mid-50s), continue replacement as needed. -Constipation: Miralax and bisacodyl supp available, monitor -Z73.6 ADL dysfunction: OT will work on improving ability to perform ADLs (including assistive devices) to increase independence and decrease caregiver burden and improve functional transfers and mobility training. -R26.2 Difficulty walking: PT will work on gait training and proper use of assistive devices and advance as appropriate to use of stairs and outside ambulation on uneven surfaces. -R26.81 Unsteadiness on feet: PT will work on improving static and dynamic sitting and standing balance as well as proper use of assistive devices to decrease risk of falls. -R26.89 Abnormality of gait: PT will work to improve safety and efficiency of gait through neuromotor training and gait training along with instruction on proper use of assistive devices. -M62.81 Muscle weakness: PT & OT will work on strengthening exercises to improve functional strength including mixture of closed and open kinetic chain exercises. -R53.81 Debility: PT & OT will work on improving overall functional status to improve participation with ADLs, mobility and social involvement. -R53.83 Fatigue: PT & OT will work on improving endurance through aerobic exerci ses and therapeutic activity while monitoring patients tolerance for activity and vital signs as needed. Arterial doppler LLE showed severe stenosis in [place] with reconstitution distally. Dr Bennett (vasc surg) consulted and recommended outpatient follow up for revascularization DVT ppx: on xarelto Pain: Continue physical modalities in therapy and pain medications as needed to achieve functional pain control. Sleep: Monitor and address as needed. Bowel: Monitor and address as needed. Appetite: Monitor and address as needed. Discharge planning: Pending therapy progress and care plan meeting. Will continue discussion with therapy team, SW, patient and family. Restrictions/ Precautions: Falls WB status: FWB Functional Hx: ADLs: Independent Cognition: Independent Mobility: No AD Barriers to Discharge: Decreased mobility and ability to perform self care, balance deficits, weakness Estimated Length of Stay: 14-21 days Discharge Destination: Home with family
[2019-05-20] MEDS: HumaLOG SUB-Q SCH ×4 (09:47→22:23)
[2019-05-20] MEDS: LOPRESSOR PO SCH ×2 (09:48→22:14)
[2019-05-20] MEDS: HALFPRIN EC PO SCH (09:48)
[2019-05-20] MEDS: XARELTO PO SCH (09:49)
[2019-05-20] MEDS: TRICOR PO SCH (09:49)
[2019-05-20] MEDS: LANTUS SUB-Q SCH ×2 (09:52→22:13)
[2019-05-20] MEDS: MIRALAX 3350 PO PRN (22:12)
[2019-05-21] MEDS: HumaLOG SUB-Q SCH ×4 (10:40→22:04)
[2019-05-21] MEDS: MIRALAX 3350 PO PRN (10:49)
[2019-05-21] MEDS: HALFPRIN EC PO SCH (10:50)
[2019-05-21] MEDS: XARELTO PO SCH (10:51)
[2019-05-21] MEDS: TRICOR PO SCH (10:51)
[2019-05-21] MEDS: LOPRESSOR PO SCH ×2 (10:52→22:01)
[2019-05-21] MEDS: LANTUS SUB-Q SCH ×2 (10:53→22:02)
[2019-05-22] MEDS: LOPRESSOR PO SCH ×2 (07:51→22:13)
[2019-05-22] MEDS: XARELTO PO SCH (07:51)
[2019-05-22] MEDS: HALFPRIN EC PO SCH (07:51)
[2019-05-22] MEDS: TRICOR PO SCH (07:52)
[2019-05-22] MEDS: LANTUS SUB-Q SCH ×2 (07:52→22:14)
[2019-05-22] MEDS: HumaLOG SUB-Q SCH ×4 (08:10→22:14)
--- NOTE | 2019-05-22 14:01 | Progress Note ---
Subjective Date of service: 05/22/19 Principal diagnosis: CVA Interval history: 68 yo RHD male who woke up with decreased ability to move left side of body. "He" drove to ER with his as a passenger. After filling out paperwork he worsened and was unable to move the left side. Head CT showed small chronic b/l lacunar infarcts. MRI brain showed small infarct in right posterior corpus stri atal region. Left facial drop now. Denies dysphagia. No aphasia or dysarthria noted. Patient is participating in therapy and making reasonable progress. Taking rest breaks as needed. +BM. Denies pain, palpitations, dyspnea, cough, N/V, or joint pain. Glucose improved. PO intake improved and seems to be stable. Discussed keeping glucose diary at home to show PCP. Vitals have been stable, BP better. Noted that LLE still cooler than right. States he does not feel depressed, looking forward to discharge. Will continue to monitor and revisit. Would likely benefit from SSRI for short term but he refuses currently. Tolerating additional tricor without issue. All records, vitals, labs and medications were reviewed. No other issues per patient, nursing or therapy. Objective - Exam Narrative Exam: MUSCULOSKELETAL SPECIALTY EXAM CONSTITUTIONAL: Well developed, well nourished, appropriately groomed. RIGHT hand dominant. RESPIRATORY: Clear to auscultation bilaterally, no increased work of breathing CARDIOVASCULAR: Regular Rate/ Rhythm, no swelling, edema or tenderness in BUE or BLE. BUE warm, LLE noticeably cooler than RLE. GI: + bowel sounds, soft, NTTP, nondistended. INTEGUMENTARY: Normal, no lesion, rash, masses or bruising noted in extremities. MUSCULOSKELETAL: BUE and BLE normal without defect, crepitus, subluxation, effusion, arthritic changes or TTP. SA EF WE EE FF FA HF KE ADF EHL APF R 5/5 overall L 3/5 3/5 3/5 4-/5 4-/5 3/5 2/5 4-/5 3/5 3/5 3/5 ROM decreased on left Tone decreased on left NEURO: Left facial droop, Intact shoulder shrug on right (decreased on left) Sensation intact in all extremities without extinction. No tremor noted in 4 extremities. Naming and repetition intact. Follows 2 step commands. Aphasia not appreciated Dysarthria not appreciated Dysphagia not appreciated Neglect not appreciated POSTURE and GAIT: Sitting posture fair with some loss of balance to back left, improving. Gait improved with short steps, utilizing QC, knee brace and AFO, able to negotiate steps, still has knee instability and weakness. PSYCH: Alert, orientated x3, affect normal today. Insight appears intact. - Constitutional Vitals: Vital Signs - 12hr 05/22/19 05/22/19 05/22/19 07:34 11:38 12:46 Temperature 36.6 C 36.8 C Pulse Rate 66 66 Respiratory 18 20 Rate Blood Pressure 144/69 115/70 O2 Sat by Pulse 98 98 Oximetry - Allied health notes Allied health notes reviewed: nursing, PT, OT FIMS assessment as documented by PT/OT/ST: Grooming Patient cleans teeth/dentures: Yes Patient reid/brushes hair: Yes Patient washes, rinses and Yes dries face: Patient washes, rinses and Yes dries hands: Patient shaves: No Patient applies make-up: No Patient performs (no make-up/ / (100%) shaving): Patient performs (w/ make-up/ / (80%) shaving): Grooming FIM Score 5. Supervision ([place] applies toothpaste or opens containers.) Toileting Toileting Device Urinal,Commode over Toilet Patient able to: Adjust clothes before,Clean self,Adjust clothes after Patient able to perform: 3/3 (100%) Toileting FIM Score 4. Minimal Assistance (Patient = 75% or more. Needs touching.) Social interaction/Memory/Problem solving Social Interaction FIM Score 5. Supervision (Needs supv. <10%. Needs encouragement to participate.) Memory FIM Score 5. Supervision (Needs cueing <10%, stressful/ unfamiliar situations.) Problem Solving FIM Score 5. Supervision (Needs cueing <10% to solve routine problems.) Transfers Mode of Locomotion: Wheelchair Bed/Chair/Wheelchair Transfers 4. Minimal Assistance (Patient = 75% or more. FIM Score Needs touching.) Toilet Transfers FIM Score 4. Minimal Assistance (Patient = 75% or more. Needs touching.) Patient transferred to: Shower Shower Transfers FIM Score 4. Minimal Assistance (Patient = 75% or more. Needs touching.) Locomotion- Stairs Device used on Stairs Handrail/s Number of Stairs Ascended/ 12 Descended Patient used handrail/support: Yes Stairs FIM Score 5. Supervision (12-14 stairs w/ supv. 4-6 stairs independently.) Locomotion- walk/wheelchair Most Frequent Mode of Wheelchair Locomotion: Ambulation Distance 170 Walking FIM Score 5. Supervision (Minimum 150 ft. supv./cues or 50 ft. independently.) Wheelchair Propulsion Distance 200 Wheelchair FIM Score 6. Modified [place] (Wheels a minimum of 150 ft.) Eating Eating FIM Score 5. Supervision/Set-Up (Needs help w/ containers, cutting meat, etc.) Dressing-Upper body Patient retrieves clothing No items: Patient applies/removes UE n/a prosthesis or orthosis: Upper Body Dressing FIM Score 5. Supv./Set-Up ([place] sets out clothes or applies pros./orth.) Dressing-lower body Patient retrieves clothing No items: Patient applies/removes LE n/a prosthesis or orthosis: Lower Body Dressing FIM Score 4. Minimal Assistance (Patient = 75% or more. Needs touching.) - Labs CBC & Chem 7: 05/18/19 07:30 05/18/19 07:30 Labs: Laboratory Results - last 72 hr 05/19/19 05/19/19 05/20/19 17:25 21:26 07:45 POC Glucose 222 H 233 H 181 H 05/20/19 05/20/19 05/20/19 12:16 16:54 20:54 POC Glucose 225 H 202 H 242 H 05/21/19 05/21/19 05/21/19 07:40 11:44 15:56 POC Glucose 112 H 224 H 232 H 05/21/19 05/22/19 05/22/19 21:19 07:43 11:51 POC Glucose 257 H 124 H 171 H Assessment and Plan -CVA with left nondominant hemiparesis: Secondary stroke prevention. Continue therapy as below. Monitor for changes in neuro. Monitor for post stroke depression and shoulder hand syndrome. Left Arm trough on w/c. Will continue to encourage consideration of SSRI. -Left foot drop: using Left AFO. Knee is also buckling - cont knee brace while awaiting return of quad control/strength. -Paroxysmal Atrial fibrillation: continue xarelto. Monitor. -Poorly controlled Diabetes: continue insulin and monitor with adjustments as needed. improving. Carb controlled diet. A1c 8.4% on 05/04 -Hypertension: continue medications and adjust as needed -Hyperlipidemia: Continue statin. Triglycerides elevated primarily, cont fenofibrate and monitor labs -Vit D deficiency: check labs (not in computer but lab confirmed mid-50s), continue replacement as needed. -Constipation: Miralax and bisacodyl supp available, monitor -Z73.6 ADL dysfunction: OT will work on improving ability to perform ADLs (including assistive devices) to increase independence and decrease caregiver burden and improve functional transfers and mobility training. -R26.2 Difficulty walking: PT will work on gait training and proper use of assistive devices and advance as appropriate to use of stairs and outside ambulation on uneven surfaces. -R26.81 Unsteadiness on feet: PT will work on improving static and dynamic sitting and standing balance as well as proper use of assistive devices to decrease risk of falls. -R26.89 Abnormality of gait: PT will work to improve safety and efficiency of gait through neuromotor training and gait training along with instruction on proper use of assistive devices. -M62.81 Muscle weakness: PT & OT will work on strengthening exercises to improve functional strength including mixture of closed and open kinetic chain exercises. -R53.81 Debility: PT & OT will work on improving overall functional status to improve participation with ADLs, mobility and social involvement. -R53.83 Fatigue: PT & OT will work on improving endurance through aerobic exercises and therapeutic activity while monitoring patients tolerance for activity and vital signs as needed. Arterial doppler LLE showed severe stenosis in [place] with reconstitution distally. Dr Bennett (vasc surg) consulted and recommended outpatient follow up for revascularization DVT ppx: on xarelto Pain: Continue physical modalities in therapy and pain medications as needed to achieve functional pain control. Sleep: Monitor and address as needed. Bowel: Monitor and address as needed. Appetite: Monitor and address as needed. Discharge planning: Pending therapy progress and care plan meeting. Will continue discussion with therapy team, SW, patient and family. Restrictions/ Precautions: Falls WB status: FWB Functional Hx: ADLs: Independent Cognition: Independent Mobility: No AD Barriers to Discharge: Decreased mobility and ability to perform self care, balance deficits, weakness Estimated Length of Stay: 14-21 days Discharge Destination: Home with family
[2019-05-22] MEDS: MIRALAX 3350 PO PRN (22:13)
[2019-05-23] MEDS: HumaLOG SUB-Q SCH ×4 (07:45→23:13)
--- NOTE | 2019-05-23 09:20 | Progress Note ---
Subjective Date of service: 05/23/19 Principal diagnosis: CVA Interval history: 68 yo RHD male who woke up with decreased ability to move left side of body. "He" drove to ER with his as a passenger. After filling out paperwork he worsened and was unable to move the left side. Head CT showed small chronic b/l lacunar infarcts. MRI brain showed small infarct in right posterior corpus stri atal region. Left facial drop now. Denies dysphagia. No aphasia or dysarthria noted. Patient is participating in therapy and making reasonable progress. Taking rest breaks as needed. +BM. Denies pain, palpitations, dyspnea, cough, N/V, or joint pain. Glucose improved. PO intake improved and seems to be stable. Discussed keeping glucose diary at home to show PCP. Vitals have been stable, BP better. Noted that LLE still cooler than right. States he does not feel depressed, looking forward to discharge. Will continue to monitor and revisit. Would likely benefit from SSRI for short term but he refuses currently. Tolerating additional tricor without issue. Discussed in team conference. Making good progress overall. Has not regained the LUE I had hoped to see yet but is still making some gains. Ambulation has improved. Still refusing any assistance with depression. Will schedule family training. AFO to deliver soon. All records, vitals, labs and medications were reviewed. No other issues per patient, nursing or therapy. Objective - Exam Narrative Exam: MUSCULOSKELETAL SPECIALTY EXAM CONSTITUTIONAL: Well developed, well nourished, appropriately groomed. RIGHT hand dominant. RESPIRATORY: Clear to auscultation bilaterally, no increased work of breathing CARDIOVASCULAR: Regular Rate/ Rhythm, no swelling, edema or tenderness in BUE or BLE. BUE warm, LLE noticeably cooler than RLE. GI: + bowel sounds, soft, NTTP, nondistended. INTEGUMENTARY: Normal, no lesion, rash, masses or bruising noted in extremities. MUSCULOSKELETAL: BUE and BLE normal without defect, crepitus, subluxation, effusion, arthritic changes or TTP. SA EF WE EE FF FA HF KE ADF EHL APF R 5/5 overall L 3/5 3/5 3/5 4-/5 4-/5 3/5 2/5 4-/5 3/5 3/5 3/5 ROM decreased on left Tone decreased on left NEURO: Left facial droop, Intact shoulder shrug on right (decreased on left) Sensation intact in all extremities without extinction. No tremor noted in 4 extremities. Naming and repetition intact. Follows 2 step commands. Aphasia not appreciated Dysarthria not appreciated Dysphagia not appreciated Neglect not appreciated POSTURE and GAIT: Sitting posture fair with some loss of balance to back left, improving. Gait improved with short steps, utilizing QC, knee brace and AFO, able to negotiate steps, still has knee instability and weakness. PSYCH: Alert, orientated x3, affect blunted today. Insight appears intact. - Constitutional Vitals: Vital Signs - 12hr 05/22/19 05/23/19 05/23/19 23:58 04:42 07:08 Temperature 36.6 C 36.8 C Pulse Rate 63 68 Pulse Rate [ 73 From Monitor] Respiratory 19 18 Rate Blood Pressure 108/54 130/72 O2 Sat by Pulse 95 96 Oximetry - Allied health notes Allied health notes reviewed: nursing, PT, OT FIMS assessment as documented by PT/OT/ST: Grooming Patient cleans teeth/dentures: Yes Patient reid/brushes hair: Yes Patient washes, rinses and Yes dries face: Patient washes, rinses and Yes dries hands: Patient shaves: No Patient applies make-up: No Patient performs (no make-up/ /4 (100%) shaving): Patient performs (w/ make-up/ 4/5 (80%) shaving): Grooming FIM Score 5. Supervision ([place] applies toothpaste or opens containers.) Toileting Toileting Device Urinal,Commode over Toilet Patient able to: Adjust clothes before,Clean self,Adjust clothes after Patient able to perform: 3/3 (100%) Toileting FIM Score 4. Minimal Assistance (Patient = 75% or more. Needs touching.) Social interaction/Memory/Problem solving Social Interaction FIM Score 5. Supervision (Needs supv. <10%. Needs encouragement to participate.) Memory FIM Score 5. Supervision (Needs cueing <10%, stressful/ unfamiliar situations.) Problem Solving FIM Score 5. Supervision (Needs cueing <10% to solve routine problems.) Transfers Mode of Locomotion: Wheelchair Bed/Chair/Wheelchair Transfers 4. Minimal Assistance (Patient = 75% or more. FIM Score Needs touching.) Toilet Transfers FIM Score 4. Minimal Assistance (Patient = 75% or more. Needs touching.) Patient transferred to: Shower Shower Transfers FIM Score 4. Minimal Assistance (Patient = 75% or more. Needs touching.) Locomotion- Stairs Device used on Stairs Handrail/s Number of Stairs Ascended/ 12 Descended Patient used handrail/support: Yes Stairs FIM Score 5. Supervision (12-14 stairs w/ supv. 4-6 stairs independently.) Locomotion- walk/wheelchair Most Frequent Mode of Wheelchair Locomotion: Ambulation Distance 170 Walking FIM Score 5. Supervision (Minimum 150 ft. supv./cues or 50 ft. independently.) Wheelchair Propulsion Distance 200 Wheelchair FIM Score 6. Modified [place] (Wheels a minimum of 150 ft.) Eating Eating FIM Score 5. Supervision/Set-Up (Needs help w/ containers, cutting meat, etc.) Dressing-Upper body Patient retrieves clothing No items: Patient applies/removes UE n/a prosthesis or orthosis: Upper Body Dressing FIM Score 5. Supv./Set-Up ([place] sets out clothes or applies pros./orth.) Dressing-lower body Patient retrieves clothing No items: Patient applies/removes LE n/a prosthesis or orthosis: Lower Body Dressing FIM Score 4. Minimal Assistance (Patient = 75% or more. Needs touching.) - Labs CBC & Chem 7: 05/24/19 04:45 05/24/19 04:45 Labs: Laboratory Results - last 72 hr 05/20/19 05/20/19 05/20/19 12:16 16:54 20:54 POC Glucose 225 H 202 H 242 H 05/21/19 05/21/19 05/21/19 07:40 11:44 15:56 POC Glucose 112 H 224 H 232 H 05/21/19 05/22/19 05/22/19 21:19 07:43 11:51 POC Glucose 257 H 124 H 171 H 05/22/19 05/22/19 05/23/19 16:41 21:05 07:14 POC Glucose 278 H 220 H 126 H Assessment and Plan -CVA with left nondominant hemiparesis: Secondary stroke prevention. Continue therapy as below. Monitor for changes in neuro. Monitor for post stroke depression and shoulder hand syndrome. Left Arm trough on w/c. Will continue to encourage consideration of SSRI. -Left foot drop: using Left AFO. Knee is also buckling - cont knee brace while awaiting return of quad control/strength. -Paroxysmal Atrial fibrillation: continue xarelto. Monitor. -Poorly controlled Diabetes: continue insulin and monitor with adjustments as needed. improving. Carb controlled diet. A1c 8.4% on 05/04 -Hypertension: continue medications and adjust as needed -Hyperlipidemia: Continue statin. Triglycerides elevated primarily, cont fenofibrate and monitor labs -Vit D deficiency: check labs (not in computer but lab confirmed mid-50s), continue replacement as needed. -Constipation: Miralax and bisacodyl supp available, monitor -Z73.6 ADL dysfunction: OT will work on improving ability to perform ADLs ( including assistive devices) to increase independence and decrease caregiver burden and improve functional transfers and mobility training. -R26.2 Difficulty walking: PT will work on gait training and proper use of assistive devices and advance as appropriate to use of stairs and outside ambulation on uneven surfaces. -R26.81 Unsteadiness on feet: PT will work on improving static and dynamic sitti ng and standing balance as well as proper use of assistive devices to decrease risk of falls. -R26.89 Abnormality of gait: PT will work to improve safety and efficiency of gait through neuromotor training and gait training along with instruction on proper use of assistive devices. -M62.81 Muscle weakness: PT & OT will work on strengthening exercises to improve functional strength including mixture of closed and open kinetic chain exercises. -R53.81 Debility: PT & OT will work on improving overall functional status to improve participation with ADLs, mobility and social involvement. -R53.83 Fatigue: PT & OT will work on improving endurance through aerobic exercises and therapeutic activity while monitoring patients tolerance for activity and vital signs as needed. Arterial doppler LLE showed severe stenosis in [place] with reconstitution distally. Dr Bennett (vasc surg) consulted and recommended outpatient follow up for revascularization DVT ppx: on xarelto Pain: Continue physical modalities in therapy and pain medications as needed to achieve functional pain control. Sleep: Monitor and address as needed. Bowel: Monitor and address as needed. Appetite: Monitor and address as needed. Discharge planning: Pending therapy progress and care plan meeting. Will continue discussion with therapy team, SW, patient and family. Restrictions/ Precautions: Falls WB status: FWB Functional Hx: ADLs: Independent Cognition: Independent Mobility: No AD Barriers to Discharge: Decreased mobility and ability to perform self care, balance deficits, weakness Estimated Length of Stay: 14-21 days Discharge Destination: Home with family Will need to d/c with quad cane and AFO. Patient has attempted to walk without them but was not safe and therefore would have increased risk of fall with injury. Attempting improve strength and stability enough to discontinue knee brace. Has better stability with it. Will monitor.
[2019-05-23] MEDS: LANTUS SUB-Q SCH ×2 (09:45→21:01)
[2019-05-23] MEDS: HALFPRIN EC PO SCH (11:36)
[2019-05-23] MEDS: MIRALAX 3350 PO PRN ×2 (11:36→20:58)
[2019-05-23] MEDS: TRICOR PO SCH (11:37)
[2019-05-23] MEDS: XARELTO PO SCH (11:37)
[2019-05-23] MEDS: LOPRESSOR PO SCH ×2 (11:37→21:00)
[2019-05-24 05:41] LABS: Hematocrit 46.6 % (35.5-45.6); Hemoglobin 15.4 gm/dl (11.8-15.2); Mean Corpuscular HGB Conc 33 % (32-34); Mean Corpuscular Volume 84 fl (84-94); Platelet Count 142 K/mm3 (140-440); Red Blood Count 5.55 M/mm3 (3.65-5.03); Red Cell Distribution Width 13.3 % (13.2-15.2)
[2019-05-24 05:49] LABS: BUN/Creatinine Ratio 10; Blood Urea Nitrogen 12 mg/dL (9-20); Calcium 11.1 mg/dL (8.4-10.2); Hemolysis Index 2
[2019-05-24] MEDS: HumaLOG SUB-Q SCH ×4 (07:30→22:41)
[2019-05-24] MEDS: LOPRESSOR PO SCH ×2 (09:06→21:54)
[2019-05-24] MEDS: TRICOR PO SCH (09:06)
[2019-05-24] MEDS: LANTUS SUB-Q SCH ×2 (09:06→22:44)
[2019-05-24] MEDS: HALFPRIN EC PO SCH (09:06)
[2019-05-24] MEDS: XARELTO PO SCH (09:06)
[2019-05-24] MEDS: VITAMIN D2 PO SCH (09:06)
--- NOTE | 2019-05-24 11:56 | Progress Note ---
Subjective Date of service: 05/24/19 Principal diagnosis: CVA Interval history: 68 yo RHD male who woke up with decreased ability to move left side of body. "He" drove to ER with his as a passenger. After filling out paperwork he worsened and was unable to move the left side. Head CT showed small chronic b/l lacunar infarcts. MRI brain showed small infarct in right posterior corpus stri atal region. Left facial drop now. Denies dysphagia. No aphasia or dysarthria noted. Patient is participating in therapy and making reasonable progress. Taking rest breaks as needed. +BM. Denies pain, palpitations, dyspnea, cough, N/V, or joint pain. Glucose improved. PO intake improved and seems to be stable. Discussed keeping glucose diary at home to show PCP. Vitals have been stable, BP better. Noted that LLE still cooler than right. Will follow up with vascular after discharge. Discussed refusal of SSRI. Primarily doesn't want to take more pills and is concerned with side effects. I explained the effects of allowing depression to worsen would be worse than s/e. Would likely benefit from SSRI for short term but he refuses currently. Tolerating additional tricor without issue. Family training soon. Overall doing well. AFO was crushed during delivery. 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 All records, vitals, labs and medications were reviewed. No other issues per patient, nursing or therapy. Objective - Exam Narrative Exam: MUSCULOSKELETAL SPECIALTY EXAM CONSTITUTIONAL: Well developed, well nourished, appropriately groomed. RIGHT hand dominant. RESPIRATORY: Clear to auscultation bilaterally, no increased work of breathing CARDIOVASCULAR: Regular Rate/ Rhythm, no swelling, edema or tenderness in BUE or BLE. BUE warm, LLE cooler than RLE. GI: + bowel sounds, soft, NTTP, nondistended. INTEGUMENTARY: Normal, no lesion, rash, masses or bruising noted in extremities. MUSCULOSKELETAL: BUE and BLE normal without defect, crepitus, subluxation, effusion, arthritic changes or TTP. SA EF WE EE FF FA HF KE ADF EHL APF R 5/5 overall L 3/5 3/5 3/5 4-/5 4-/5 3/5 2/5 4-/5 3/5 3/5 3/5 ROM decreased on left Tone decreased on left NEURO: Left facial droop, Intact shoulder shrug on right (decreased on left) Sensation intact in all extremities without extinction. No tremor noted in 4 extremities. Naming and repetition intact. Follows 2 step commands. Aphasia not appreciated Dysarthria not appreciated Dysphagia not appreciated Neglect not appreciated POSTURE and GAIT: Sitting posture fair with some loss of balance to back left, improving. Gait im proved with short steps, utilizing QC, knee brace and AFO, able to negotiate steps, still has knee instability and weakness. PSYCH: Alert, oriented x3, affect flattened today. Insight appears intact. - Constitutional Vitals: Vital Signs - 12hr 05/24/19 05/24/19 08:58 09:00 Temperature 36.6 C 36.6 C Pulse Rate 76 76 Respiratory 18 18 Rate Blood Pressure 122/67 [Right] O2 Sat by Pulse 95 Oximetry - Allied health notes Allied health notes reviewed: nursing, PT, OT FIMS assessment as documented by PT/OT/ST: Grooming Patient cleans teeth/dentures: Yes Patient reid/brushes hair: Yes Patient washes, rinses and Yes dries face: Patient washes, rinses and Yes dries hands: Patient shaves: No Patient applies make-up: No Patient performs (no make-up/ / (100%) shaving): Patient performs (w/ make-up/ /5 (80%) shaving): Grooming FIM Score 5. Supervision ([place] applies toothpaste or opens containers.) Toileting Toileting Device Urinal,Commode over Toilet Patient able to: Adjust clothes before,Clean self,Adjust clothes after Patient able to perform: 3/3 (100%) Toileting FIM Score 4. Minimal Assistance (Patient = 75% or more. Needs touching.) Social interaction/Memory/Problem solving Social Interaction FIM Score 7. Complete [place] (Interacts appropriately. Controls temper.) Memory FIM Score 7. Complete [place] (Remembers people and routines.) Problem Solving FIM Score 7. Complete [place] (Solves complex problems. Self corrects.) Transfers Mode of Locomotion: Wheelchair Bed/Chair/Wheelchair Transfers 7. Complete [place] (Walking: Stands. W/C: FIM Score Locks brakes, pivots.) Toilet Transfers FIM Score 4. Minimal Assistance (Patient = 75% or more. Needs touching.) Patient transferred to: Shower Shower Transfers FIM Score 4. Minimal Assistance (Patient = 75% or more. Needs touching.) Locomotion- Stairs Device used on Stairs Handrail/s Number of Stairs Ascended/ 12 Descended Patient used handrail/support: Yes Stairs FIM Score 5. Supervision (12-14 stairs w/ supv. 4-6 stairs independently.) Locomotion- walk/wheelchair Most Frequent Mode of Wheelchair Locomotion: Ambulation Distance 250 Walking FIM Score 5. Supervision (Minimum 150 ft. supv./cues or 50 ft. independently.) Wheelchair Propulsion Distance 200 Wheelchair FIM Score 6. Modified [place] (Wheels a minimum of 150 ft.) Eating Eating FIM Score 5. Supervision/Set-Up (Needs help w/ containers, cutting meat, etc.) Dressing-Upper body Patient retrieves clothing No items: Patient applies/removes UE n/a prosthesis or orthosis: Upper Body Dressing FIM Score 5. Supv./Set-Up ([place] sets out clothes or applies pros./orth.) Dressing-lower body Patient retrieves clothing No items: Patient applies/removes LE n/a prosthesis or orthosis: Lower Body Dressing FIM Score 4. Minimal Assistance (Patient = 75% or more. Needs touching.) - Labs CBC & Chem 7: 05/24/19 04:45 05/24/19 04:45 Labs: Laboratory Results - last 72 hr 05/21/19 05/21/19 05/21/19 07:40 11:44 15:56 WBC RBC Hgb Hct MCV MCH MCHC RDW Plt Count Sodium Potassium Chloride Carbon Dioxide Anion Gap BUN Creatinine Estimated GFR BUN/Creatinine Ratio Glucose POC Glucose 112 H 224 H 232 H Calcium 05/21/19 05/22/19 05/22/19 21:19 07:43 11:51 WBC RBC Hgb Hct MCV MCH MCHC RDW Plt Count Sodium Potassium Chloride Carbon Dioxide Anion Gap BUN Creatinine Estimated GFR BUN/Creatinine Ratio Glucose POC Glucose 257 H 124 H 171 H Calcium 05/22/19 05/22/19 05/23/19 16:41 21:05 07:14 WBC RBC Hgb Hct MCV MCH MCHC RDW Plt Count Sodium Potassium Chloride Carbon Dioxide Anion Gap BUN Creatinine Estimated GFR BUN/Creatinine Ratio Glucose POC Glucose 278 H 220 H 126 H Calcium 05/23/19 05/23/19 05/23/19 12:29 16:41 22:08 WBC RBC Hgb Hct MCV MCH MCHC RDW Plt Count Sodium Potassium Chloride Carbon Dioxide Anion Gap BUN Creatinine Estimated GFR BUN/Creatinine Ratio Glucose POC Glucose 247 H 217 H 191 H Calcium 05/24/19 05/24/19 05/24/19 04:45 04:45 07:24 WBC 5.5 RBC 5.55 H Hgb 15.4 H Hct 46.6 H MCV 84 MCH 28 MCHC 33 RDW 13.3 Plt Count 142 Sodium 142 Potassium 3.9 Chloride 106.1 Carbon Dioxide 25 Anion Gap 15 BUN 12 Creatinine 1.2 Estimated GFR > 60 BUN/Creatinine Ratio 10 Glucose 57 L POC Glucose 81 Calcium 11.1 H Assessment and Plan -CVA with left nondominant hemiparesis: Secondary stroke prevention. Continue therapy as below. Monitor for changes in neuro. Monitor for post stroke depression and shoulder hand syndrome. Left Arm trough on w/c. Will continue to encourage consideration of SSRI. -Left foot drop: using Left AFO. Knee is also buckling - cont knee brace while awaiting return of quad control/strength. -Paroxysmal Atrial fibrillation: continue xarelto. Monitor. -Poorly controlled Diabetes: continue insulin and monitor with adjustments as needed. improving. Carb controlled diet. A1c 8.4% on 05/04 -Hypertension: continue medications and adjust as needed -Hyperlipidemia: Continue statin. Triglycerides elevated primarily, cont fenofibrate and monitor labs -Vit D deficiency: check labs (not in computer but lab confirmed mid-50s), continue replacement as needed. -Constipation: Miralax and bisacodyl supp available, monitor -Z73.6 ADL dysfunction: OT will work on improving ability to perform ADLs (including assistive devices) to increase independence and decrease caregiver burden and improve functional transfers and mobility training. -R26.2 Difficulty walking: PT will work on gait training and proper use of assistive devices and advance as appropriate to use of stairs and outside ambulation on uneven surfaces. -R26.81 Unsteadiness on feet: PT will work on improving static and dynamic sitting and standing balance as well as proper use of assistive devices to decrease risk of falls. -R26.89 Abnormality of gait: PT will work to improve safety and efficiency of gait through neuromotor training and gait training along with instruction on proper use of assistive devices. -M62.81 Muscle weakness: PT & OT will work on strengthening exercises to improve functional strength including mixture of closed and open kinetic chain exercises. -R53.81 Debility: PT & OT will work on improving overall functional status to improve participation with ADLs, mobility and social involvement. -R53.83 Fatigue: PT & OT will work on improving endurance through aerobic exercises and therapeutic activity while monitoring patients tolerance for activity and vital signs as needed. Arterial doppler LLE showed severe stenosis in [place] with reconstitution distally. Dr Bennett (vasc surg) consulted and recommended outpatient follow up for revascularization DVT ppx: on xarelto Pain: Continue physical modalities in therapy and pain medications as needed to achieve functional pain control. Sleep: Monitor and address as needed. Bowel: Monitor and address as needed. Appetite: Monitor and address as needed. Discharge planning: Pending therapy progress and care plan meeting. Will continue discussion with therapy team, SW, patient and family. Restrictions/ Precautions: Falls WB status: FWB Functional Hx: ADLs: Independent Cognition: Independent Mobility: No AD Barriers to Discharge: Decreased mobility and ability to perform self care, balance deficits, weakness Estimated Length of Stay: 14-21 days Discharge Destination: Home with family Will need to d/c with quad cane and AFO. Patient has attempted to walk without them but was not safe and therefore would have increased risk of fall with injury. Attempting improve strength and stability enough to discontinue knee brace. Has better stability with it. Will monitor.
[2019-05-25] MEDS: HALFPRIN EC PO SCH (09:02)
[2019-05-25] MEDS: XARELTO PO SCH (09:02)
[2019-05-25] MEDS: TRICOR PO SCH (09:03)
[2019-05-25] MEDS: LANTUS SUB-Q SCH ×2 (09:06→21:53)
[2019-05-25] MEDS: HumaLOG SUB-Q SCH ×4 (09:10→22:03)
--- NOTE | 2019-05-25 09:51 | Progress Note ---
Subjective Date of service: 05/25/19 Principal diagnosis: CVA Interval history: 68 yo RHD male who woke up with decreased ability to move left side of body. "He" drove to ER with his as a passenger. After filling out paperwork he worsened and was unable to move the left side. Head CT showed small chronic b/l lacunar infarcts. MRI brain showed small infarct in right posterior corpus stri atal region. Left facial drop now. Denies dysphagia. No aphasia or dysarthria noted. Patient is participating in therapy and making reasonable progress. Taking rest breaks as needed. +BM. Denies pain, palpitations, dyspnea, cough, N/V, or joint pain. No signs of shoulder hand syndrome. Glucose improved. PO intake improved and seems to be stable. Discussed keeping glucose diary at home to show PCP. Discussed secondary CVA prevention. Still refuses SSRI. Encouraged him to follow up with PCP/Neuro/Psych if symptoms get worse. Vitals have been stable. Noted that LLE still cooler than right. Will follow up with vascular after discharge. Family training soon. Overall doing well. All records, vitals, labs and medications were reviewed. No other issues per patient, nursing or therapy. Objective - Exam Narrative Exam: MUSCULOSKELETAL SPECIALTY EXAM CONSTITUTIONAL: Well developed, well nourished, appropriately groomed. RIGHT hand dominant. RESPIRATORY: Clear to auscultation bilaterally, no increased work of breathing CARDIOVASCULAR: Regular Rate/ Rhythm, no swelling, edema or tenderness in BUE or BLE. BUE warm, LLE cooler than RLE. GI: + bowel sounds, soft, NTTP, nondistended. INTEGUMENTARY: Normal, no lesion, rash, masses or bruising noted in extremities. MUSCULOSKELETAL: BUE and BLE normal without defect, crepitus, subluxation, effusion, arthritic changes or TTP. SA EF WE EE FF FA HF KE ADF EHL APF R 5/5 overall L 4-/5 4-/5 4-/5 4-/5 4-/5 4-/5 2/5 4-/5 3/5 3/5 3/5 ROM decreased on left Tone decreased on left NEURO: Left facial droop, Intact shoulder shrug on right (decreased on left) Sensation intact in all extremities without extinction. No tremor noted in 4 extremities. Naming and repetition intact. Follows 2 step commands. Aphasia not appreciated Dysarthria not appreciated Dysphagia not appreciated Neglect not appreciated POSTURE and GAIT: Sitting posture fair with some loss of balance to back left, improving. Gait improved with short steps, utilizing QC and AFO, able to negotiate steps, still has knee instability and weakness. PSYCH: Alert, oriented x3, affect flattened. Insight appears intact. - Constitutional Vitals: Vital Signs - 12hr 05/24/19 05/24/19 05/25/19 21:54 22:00 07:00 Temperature 36.5 C Pulse Rate 75 75 77 Respiratory 18 Rate Blood Pressure 104/49 Blood Pressure 104/79 [Right] O2 Sat by Pulse 95 97 Oximetry - Allied health notes Allied health notes reviewed: nursing, PT, OT FIMS assessment as documented by PT/OT/ST: Grooming Patient cleans teeth/dentures: Yes Patient reid/brushes hair: Yes Patient washes, rinses and Yes dries face: Patient washes, rinses and Yes dries hands: Patient shaves: No Patient applies make-up: No Patient performs (no make-up/ / (100%) shaving): Patient performs (w/ make-up/ /5 (80%) shaving): Grooming FIM Score 5. Supervision ([place] applies toothpaste or opens containers.) Toileting Toileting Device Urinal,Commode over Toilet Patient able to: Adjust clothes before,Clean self,Adjust clothes after Patient able to perform: 3/3 (100%) Toileting FIM Score 4. Minimal Assistance (Patient = 75% or more. Needs touching.) Social interaction/Memory/Problem solving Social Interaction FIM Score 5. Supervision (Needs supv. <10%. Needs encouragement to participate.) Memory FIM Score 5. Supervision (Needs cueing <10%, stressful/ unfamiliar situations.) Problem Solving FIM Score 5. Supervision (Needs cueing <10% to solve routine problems.) Transfers Mode of Locomotion: Wheelchair Bed/Chair/Wheelchair Transfers 5. [place] (Needs supv. or set-up for FIM Score sliding board, foot rests.) Toilet Transfers FIM Score 4. Minimal Assistance (Patient = 75% or more. Needs touching.) Patient transferred to: Shower Shower Transfers FIM Score 4. Minimal Assistance (Patient = 75% or more. Needs touching.) Locomotion- Stairs Device used on Stairs Handrail/s Number of Stairs Ascended/ 12 Descended Patient used handrail/support: Yes Stairs FIM Score 5. Super[place] (12-14 stairs w/ supv. 4-6 stairs independently.) Locomotion- walk/wheelchair Most Frequent Mode of Wheelchair Locomotion: Ambulation Distance 250 Walking FIM Score 5. Supervision (Minimum 150 ft. supv./cues or 50 ft. independently.) Wheelchair Propulsion Distance 200 Wheelchair FIM Score 6. Modified [place] (Wheels a minimum of 150 ft.) Eating Eating FIM Score 5. Supervision/Set-Up (Needs help w/ containers, cutting meat, etc.) Dressing-Upper body Patient retrieves clothing No items: Patient applies/removes UE n/a prosthesis or orthosis: Upper Body Dressing FIM Score 5. Supv./Set-Up ([place] sets out clothes or applies pros./orth.) Dressing-lower body Patient retrieves clothing No items: Patient applies/removes LE n/a prosthesis or orthosis: Lower Body Dressing FIM Score 4. Minimal Assistance (Patient = 75% or more. Needs touching.) - Labs CBC & Chem 7: 05/24/19 04:45 05/24/19 04:45 Labs: Laboratory Results - last 72 hr 05/22/19 05/22/19 05/22/19 11:51 16:41 21:05 WBC RBC Hgb Hct MCV MCH MCHC RDW Plt Count Sodium Potassium Chloride Carbon Dioxide Anion Gap BUN Creatinine Estimated GFR BUN/Creatinine Ratio Glucose POC Glucose 171 H 278 H 220 H Calcium 05/23/19 05/23/19 05/23/19 07:14 12:29 16:41 WBC RBC Hgb Hct MCV MCH MCHC RDW Plt Count Sodium Potassium Chloride Carbon Dioxide Anion Gap BUN Creatinine Estimated GFR BUN/Creatinine Ratio Glucose POC Glucose 126 H 247 H 217 H Calcium 05/23/19 05/24/19 05/24/19 22:08 04:45 04:45 WBC 5.5 RBC 5.55 H Hgb 15.4 H Hct 46.6 H MCV 84 MCH 28 MCHC 33 RDW 13.3 Plt Count 142 Sodium 142 Potassium 3.9 Chloride 106.1 Carbon Dioxide 25 Anion Gap 15 BUN 12 Creatinine 1.2 Estimated GFR > 60 BUN/Creatinine Ratio 10 Glucose 57 L POC Glucose 191 H Calcium 11.1 H 05/24/19 05/24/19 05/24/19 07:24 12:50 16:29 WBC RBC Hgb Hct MCV MCH MCHC RDW Plt Count Sodium Potassium Chloride Carbon Dioxide Anion Gap BUN Creatinine Estimated GFR BUN/Creatinine Ratio Glucose POC Glucose 81 73 153 H Calcium 05/24/19 05/25/19 05/25/19 22:47 06:41 07:28 WBC RBC Hgb Hct MCV MCH MCHC RDW Plt Count Sodium Potassium Chloride Carbon Dioxide Anion Gap BUN Creatinine Estimated GFR BUN/Creatinine Ratio Glucose POC Glucose 123 H 146 H 141 H Calcium Assessment and Plan -CVA with left nondominant hemiparesis: Secondary stroke prevention. Continue therapy as below. Monitor for changes in neuro. Monitor for post stroke depression and shoulder hand syndrome. Left Arm trough on w/c. Will continue to encourage consideration of SSRI. -Left foot drop: using Left AFO. Knee is also buckling - cont knee brace while awaiting return of quad control/strength. -Paroxysmal Atrial fibrillation: continue xarelto. Monitor. -Poorly controlled Diabetes: continue insulin and monitor with adjustments as needed. improving. Carb controlled diet. A1c 8.4% on 05/04 -Hypertension: continue medications and adjust as needed -Hyperlipidemia: Continue statin. Triglycerides elevated primarily, cont fenofibrate and monitor labs -Vit D deficiency: check labs (not in computer but lab confirmed mid-50s), continue replacement as needed. -Constipation: Miralax and bisacodyl supp available, monitor -Z73.6 ADL dysfunction: OT will work on improving ability to perform ADLs (including assistive devices) to increase independence and decrease caregiver burden and improve functional transfers and mobility training. -R26.2 Difficulty walking: PT will work on gait training and proper use of assistive devices and advance as appropriate to use of stairs and outside ambulation on uneven surfaces. -R26.81 Unsteadiness on feet: PT will work on improving static and dynamic sitting and standing balance as well as proper use of assistive devices to decrease risk of falls. -R26.89 Abnormality of gait: PT will work to improve safety and efficiency of gait through neuromotor training and gait training along with instruction on proper use of assistive devices. -M62.81 Muscle weakness: PT & OT will work on strengthening exercises to improve functional strength including mixture of closed and open kinetic chain exercises. -R53.81 Debility: PT & OT will work on improving overall functional status to improve participation with ADLs, mobility and social involvement. -R53.83 Fatigue: PT & OT will work on improving endurance through aerobic exercises and therapeutic activity while monitoring patients tolerance for activity and vital signs as needed. Arterial doppler LLE showed severe stenosis in [place] with reconstitution distally. Dr Bennett (vasc surg) consulted and recommended outpatient follow up for revascularization DVT ppx: on xarelto Pain: Continue physical modalities in therapy and pain medications as needed to achieve functional pain control. Sleep: Monitor and address as needed. Bowel: Monitor and address as needed. Appetite: Monitor and address as needed. Discharge planning: Pending therapy progress and care plan meeting. Will continue discussion with therapy team, SW, patient and family. Restrictions/ Precautions: Falls WB status: FWB Functional Hx: ADLs: Independent Cognition: Independent Mobility: No AD Barriers to Discharge: Decreased mobility and ability to perform self care, balance deficits, weakness Estimated Length of Stay: 14-21 days Discharge Destination: Home with family Will need to d/c with quad cane and AFO. Patient has attempted to walk without them but was not safe and therefore would have increased risk of fall with injury. Attempting improve strength and stability enough to discontinue knee brace. Has better stability with it but has been able to walk without it lately. Will monitor.
[2019-05-25] MEDS: LOPRESSOR PO SCH ×2 (09:56→21:51)
[2019-05-25] MEDS: MIRALAX 3350 PO PRN (22:07)
[2019-05-26 08:03] VITALS: BP 126/64
[2019-05-26] MEDS: XARELTO PO SCH (08:31)
[2019-05-26] MEDS: TRICOR PO SCH (08:31)
[2019-05-26] MEDS: HALFPRIN EC PO SCH (08:31)
[2019-05-26] MEDS: LOPRESSOR PO SCH (08:33)
[2019-05-26] MEDS: LANTUS SUB-Q SCH (08:35)
--- NOTE | 2019-05-26 11:56 | Discharge Summary ---
Providers - Providers Date of Admission: 05/05/19 16:02 Date of discharge: 05/26/19 Attending physician: JACKIE MORENO III, MD 05/05/19 16:02 Occupational Therapy Evaluate and Treat [CONS] Routine Comment: Reason For Exam: ADL dysfunction Physical Therapy Evaluation and Treat [CONS] Routine Comment: Reason For Exam: Mobility Dysfunction Speech Therapy Evaluation and Treat [CONS] Routine Reason For Exam: Eval & Treat CVA 05/05/19 16:07 Consult to Case Management [CONS] Routine Services Needed at Discharge: Home Health Services Notified:: cm notified 05/12/19 09:11 Consult to Physician [CONS] Routine Comment: If surg is needed urgently, will need to discharge Consulting Provider: LOGAN WHITE Physician Instructions: Please review duplex and eval patient Reason For Exam: LLE severe stenosis MEAGHAN Primary care physician: [facility] Hospitalization Reason for admission: CVA Condition: Fair Pertinent studies: 05/11/2019 Arterial Doppler of left lower extremity showed severe stenosis versus occlusion of the left mid MEAGHAN with distal reconstitution Hospital course: 68 yo RHD male who woke up with decreased ability to move left side of body. "He" drove to ER with his as a passenger. After filling out paperwork he worsened and was unable to move the left side. Head CT showed small chronic b/l lacunar infarcts. MRI brain showed small infarct in right posterior corpus striatal region. Left facial droop now. Denies dysphagia. No aphasia or dysa rthria noted. Some mild constipation. Patient made good progress with therapy and regained some but not all function of the left upper and left lower extremities. He is able ambulate with a wide-base quad cane and AFO. Still has some issues with left knee buckling but is able to ambulate without the knee brace that we have been using previously. Noted to have a cooler left lower extremity when compared to the right. Arterial Doppler was ordered and he was found to have an MEAGHAN stenosis versus occlusion with reconstitution. [facility] neurosurgery was consulted and suggested outpatient follow-up for further intervention after he was cleared from this hospitalization. Diabetes was difficult to control however became a little better with split dose of Lantus which he will be discharged on. Encouraged him to continue to monitor his glucose levels and follow-up with a list of these levels with his PCP so that his Lantus dose and sliding scale can be adjusted accordingly. Blood pressure was well-controlled on metoprolol. Decreased dose due to bradycardia at times. Noted to have elevated triglycerides along with hyperlipidemia. He was started on fenofibrate to assist with triglyceride control and would recommend that his full cholesterol panel be rechecked in approximately 4-6 weeks. He remains on Xarelto for anticoagulation due to atrial fibrillation. Cautioned him that if he does have a fall with a head strike that he needs to go to the ER for a head CT while taking Xarelto. All issues noted above were discussed in presence of the patient, , and adult son. Have gone over these issues multiple times during the hospital stay with the patient as well including secondary stroke prevention. Patient does seem to have issues with repeating the secondary stroke prevention measures even though they have been addressed numerous times during his stay with us. We'll discharge patient with a prescription for Zoloft. 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 He is refuses to utilize the unit SSRI since he has been here but during our discussion at discharge I mentioned to him that if he continues to show the signs and symptoms that he does need to consider starting the dose but I will send him with. I'll provide him with an initial dose if he does want to start taking this he will also need to get this through either his neurologist are PCP. Secondary Stroke Prevention Watch diet. Exercise regularly. Don't start smoking. Don't drink alcohol in excess. Antiplatelet: Continue to take ASPIRIN. Anticoagulant: Continue to take XARELTO for atrial fibrillation Blood Pressure: Monitor daily in the left arm at the same time. Record these values and take them with you to your PCP. You are on METOPROLOL for this. It also controls your heart rate for atrial fibrillation. Cholesterol: Continue to take LIPITOR AND FENOFIBRATE. Watch your diet, reduce fatty foods. Fenofibrate was added to reduce triglycerides. Tot Chol 122, LDL 69, HDL 32, Trig 237. Diabetes: Continue to monitor glucose and record this to give to your PCP. Continue Insulin therapy. Hgb A1c was 8.4%. Patient will need a follow-up with PCP in the next couple of weeks for further medication adjustment once he returns home. Will need follow-up with neurologist in 4-6 weeks for monitoring of resolution of stroke symptoms. Will need to follow up with vascular surgery for revascularization of left lower extremity. Will need a follow-up with outpatient PT and OT for further recovery post stroke. Disposition: DC-30 STILL A PATIENT Core Measure Documentation - Palliative Care Palliative Care/ Comfort Measures: Not Applicable - Core Measures Any of the following diagnoses?: stroke - Stroke Discharge Requirements Statin for LDL = or >70 mg/dl on DC: Yes Anticoag for atrial fib/atrial flutter: Yes Antithrombotic for ischemic stroke: Yes Exam - Physical Exam Narrative exam: MUSCULOSKELETAL SPECIALTY EXAM CONSTITUTIONAL: Well developed, well nourished, appropriately groomed. RIGHT hand dominant. RESPIRATORY: Clear to auscultation bilaterally, no increased work of breathing CARDIOVASCULAR: Regular Rate/ Rhythm, no swelling, edema or tenderness in BUE or BLE. BUE warm, LLE cooler than RLE. GI: + bowel sounds, soft, NTTP, nondistended. INTEGUMENTARY: Normal, no lesion, rash, masses or bruising noted in extremities. MUSCULOSKELETAL: BUE and BLE normal without defect, crepitus, subluxation, effusion, arthritic changes or TTP. SA EF WE EE FF FA HF KE ADF EHL APF R 5/5 overall L 4-/5 4-/5 4-/5 4-/5 4-/5 4-/5 4-/5 4-/5 4-/5 4-/5 4-/5 ROM decreased on left Tone decreased on left NEURO: Left facial droop, Intact shoulder shrug on right (decreased on left) Sensation intact in all extremities without extinction. No tremor noted in 4 extremities. Naming and repetition intact. Follows 2 step commands. Aphasia not appreciated Dysarthria not appreciated Dysphagia not appreciated Neglect not appreciated POSTURE and GAIT: Sitting posture fair with some loss of balance to back left, improving. Gait improved with short steps, utilizing QC and AFO, able to negotiate steps, still has knee instability and weakness. PSYCH: Alert, oriented x3, affect flattened. Insight appears intact. - Constitutional Vitals: Temp Pulse Resp BP Pulse Ox 36.6 C 64 18 126/64 99 05/26/19 07:30 05/26/19 07:30 05/26/19 07:30 05/26/19 07:30 05/26/19 07:30 - Allied Health Allied health notes reviewed: nursing, PT, OT Plan Activity: advance as tolerated, no driving until cleared by PCP, fall precautions Weight Bearing Status: Full Weight Bearing Diet: diabetic (heart healthy) Special Instructions: record daily BP diary, record blood sugar diary, follow up in rehab, physical therapy, occupational therapy Durable Medical Equipment Needed Upon Discharge: Cane-Quad Additional Instructions: Follow up with Neurology. Follow up with Vascular Surgery. Follow up with: [facility] [Primary Care Provider] - 7 Days LOGAN WHITE MD [Staff Physician] - 14 Days (LLE MEAGHAN stenosis) Prescriptions: Insulin Glargine [Lantus VIAL] 35 units SUB-Q QHS 30 Days units AtorvaSTATin [Lipitor] 40 mg PO QHS #30 tablet Aspirin EC 81 mg PO QDAY #30 tablet Fenofibrate 50 mg PO QAM #30 capsule Lispro Insulin [HumaLOG] 0 unit SUB-Q ACHS 30 Days units Insulin Glargine [Lantus VIAL] 20 units SUB-Q QAMDIAB 30 Days units Metoprolol [Lopressor TAB] 12.5 mg PO BID #30 tablet Ergocalciferol [Vitamin D2] 50,000 unit PO We #30 capsule Rivaroxaban [Xarelto] 20 mg PO QDDIAB #30 tablet Sertraline [Zoloft] 50 mg PO QDAY #30 tablet
[2019-05-27] MEDS ORDERED: ZOLOFT PO SCH (08:00)
== END 2019-05-26 13:45 | disposition home or self-care (01) | DRG 56 ==
LOC: UNDOADMIN 15:19 → 3A 15:19 → 3B 16:02
PROVIDERS: ADMIT Physical Medicine & Rehabilitation; ATTEND Physical Medicine & Rehabilitation
DX: I69.354 Hemiplegia and hemiparesis following cerebral infarction affecting left non-dominant side (principal); I63.9 Cerebral infarction, unspecified; I10 Essential (primary) hypertension; I48.0 Paroxysmal atrial fibrillation; E78.5 Hyperlipidemia, unspecified; I70.209 Unspecified atherosclerosis of native arteries of extremities, unspecified extremity; M21.372 Foot drop, left foot; E55.9 Vitamin D deficiency, unspecified; K59.00 Constipation, unspecified; E11.51 Type 2 diabetes mellitus with diabetic peripheral angiopathy without gangrene; E11.65 Type 2 diabetes mellitus with hyperglycemia; R53.81 Other malaise; Z82.49 Family history of ischemic heart disease and other diseases of the circulatory system; Z83.3 Family history of diabetes mellitus
CPT/HCPCS: 36415; 80048; 80053; 82962; 85025; 85027; G0378; G0515; A9270-GY; J1815; Q0162